=== PATIENT | female | born 1970 | race American Indian/Alaskan Native ===

== ENCOUNTER 2017-07-11 07:44 | Emergency (ER) | payer SELFPAY ==
[2017-07-11] MEDS ORDERED: BENADRYL IV ONE (10:51)
[2017-07-11] MEDS ORDERED: DILAUDID IV ONE ×2 (10:51→13:42)
[2017-07-11] MEDS ORDERED: ZOFRAN IV ONE (10:51)
[2017-07-11] MEDS ORDERED: NORMODYNE IV ONE (10:52)
[2017-07-11 11:16] LABS: Basophils % (Auto) 0.6 % (0.0-1.8); Eosinophils % (Auto) 0.1 % (0.0-4.3); Hematocrit 37.3 % (30.3-42.9); Hemoglobin 12.3 gm/dl (10.1-14.3); Lymphocytes # (Auto) 1.6 K/mm3 (1.2-5.4); Lymphocytes % (Auto) 21.7 % (13.4-35.0); Mean Corpuscular HGB Conc 33 % (30-34); Mean Corpuscular Hemoglobin 27 pg (28-32); Mean Corpuscular Volume 83 fl (79-97); Monocytes # (Auto) 0.5 K/mm3 (0.0-0.8); Monocytes % (Auto) 6.3 % (0.0-7.3); Platelet Count 208 K/mm3 (140-440); Red Blood Count 4.52 M/mm3 (3.65-5.03); Red Cell Distribution Width 14.8 % (13.2-15.2)
[2017-07-11 11:27] LABS: INR 0.9 (0.87-1.13)
[2017-07-11 11:28] LABS: Partial Thromboplastin Time 30.8 Sec. (24.2-36.6)
[2017-07-11 11:34] LABS: Alanine Aminotransferase 17 units/L (7-56); BUN/Creatinine Ratio 18; Blood Urea Nitrogen 9 mg/dL (7-17); Calcium 8.7 mg/dL (8.4-10.2); Hemolysis Index 3
[2017-07-11 11:36] LABS: Bilirubin,Direct < 0.2 mg/dL (0-0.2)
--- NOTE | 2017-07-11 12:01 | XRay Report ---
Single view chest: History: Hypertension. Findings: Cardiomegaly. Trachea is midline. No consolidation, pneumothorax or pleural effusion. Impression: Cardiomegaly. No acute lung changes.
--- NOTE | 2017-07-11 12:06 | Emergency Department Report ---
ED General Adult HPI - General Chief complaint: Back Pain/Injury Stated complaint: BACK PAIN Time Seen by Provider: 07/11/17 10:31 Source: patient Mode of arrival: Ambulatory Limitations: No Limitations - History of Present Illness Initial comments: Patient states she has had a severe headache for the past 2 days. It was of gradual onset but is persistent. She has not been vomiting. She does not complain of nausea. Apparently she does have chronic lower back pain and was scheduled for a spinal stimulator. She states her back is hurting too. She is recently moved to this area and doesn't have a physician. She presented to the emergency department blood pressure 188/121. She claims that her blood pressure always goes up when she has pain. I believe that she has been to the emergency department several times for chronic pain. However, she denies any prior emergency department visit for headaches. She is not taking chronic medications for her blood pressure. She denies fever or chills. She denies any focal neurological change. She states to the nurse that she's had some chronic weakness of her lower extremities and difficulty in walking secondary to her lower back pain. She does not report any increased weakness. Patient states "I feel like I'm going into renal failure again". Apparently she had reversible renal injury at one time. -: Gradual, days(s) Location: head, back Radiation: non-radiation Quality: aching Consistency: constant Improves with: none Worsens with: none Associated Symptoms: denies other symptoms - Related Data Allergies Allergy/AdvReac Type Severity Reaction Status Date / Time acetaminophen [From Tylenol] Allergy Vomiting Verified 07/11/17 07:50 codeine Allergy Vomiting Verified 07/11/17 07:50 iodine Allergy Vomiting Verified 07/11/17 07:50 shellfish derived Allergy Vomiting Verified 07/11/17 07:50 NSAIDS (Non-Steroidal AdvReac Unknown Verified 07/11/17 07:50 Anti-Inflamma muscle relaxers AdvReac Unknown Uncoded 07/11/17 07:50 ED Review of Systems ROS: Stated complaint: BACK PAIN Other details as noted in HPI Constitutional: denies: chills, fever Eyes: denies: eye pain, eye discharge, vision change ENT: denies: ear pain, throat pain Respiratory: denies: cough, shortness of breath, wheezing Cardiovascular: denies: chest pain, palpitations Endocrine: no symptoms reported Gastrointestinal: denies: abdominal pain, nausea, diarrhea Genitourinary: denies: urgency, dysuria, discharge Musculoskeletal: as per HPI, back pain. denies: joint swelling, arthralgia Skin: denies: rash, lesions Neurological: as per HPI, headache. denies: weakness, paresthesias Psychiatric: denies: anxiety, depression Hematological/Lymphatic: denies: easy bleeding, easy bruising ED Past Medical Hx - Past Medical History Hx Hypertension: Yes (only with pain) Hx Liver Disease: Yes Hx Renal Disease: Yes (no dialysis) Additional medical history: degenerative bone disorder, RA, sciatica, "I may have stomach cancer", - Surgical History Hx Cholecystectomy: Yes Additional Surgical History: hysterectomy, gastric bypass, C/S - Social History Smoking Status: Current Some Day Smoker Substance Use Type: Alcohol ED Physical Exam - General Limitations: No Limitations General appearance: in distress (appears to have some photosensitivity) - Head Head exam: Present: atraumatic, normocephalic - Eye Eye exam: Present: normal appearance, PERRL, EOMI - ENT ENT exam: Present: normal orophraynx, mucous membranes moist - Neck Neck exam: Present: normal inspection. Absent: tenderness, meningismus - Respiratory Respiratory exam: Present: normal lung sounds bilaterally. Absent: respiratory distress - Cardiovascular Cardiovascular Exam: Present: regular rate, normal rhythm. Absent: systolic murmur, diastolic murmur, rubs, gallop - GI/Abdominal GI/Abdominal exam: Present: soft, normal bowel sounds. Absent: distended, tenderness, guarding, rebound - Extremities Exam Extremities exam: Present: normal inspection, full ROM. Absent: calf tenderness - Back Exam Back exam: Present: normal inspection. Absent: CVA tenderness (R), CVA tenderness (L) - Neurological Exam Neurological exam: Present: alert, oriented X3, CN II-XII intact. Absent: motor sensory deficit - Psychiatric Psychiatric exam: Present: normal affect, anxious - Skin Skin exam: Present: warm, dry, intact, normal color. Absent: rash ED Course Vital Signs 07/11/17 07/11/17 07:50 12:19 Temperature 99.6 F Pulse Rate 101 H 80 Respiratory 18 Rate Blood Pressure 188/121 199/126 O2 Sat by Pulse 100 Oximetry - Reevaluation(s) Reevaluation #1: Nurses were unable to obtain IV access in this patient. I placed a left external jugular line with a Y adapter. The patient was given analgesia and medicine for her hypertension. Her blood pressure did improve but at last check it was 170/105. I will leave further regulation of her blood pressure to Dr. Bustos. Her headache has improved somewhat but is still persistent but not severe. The circumstances I think the patient requires admission for accelerated hypertension associated with headache. Further workup per Dr. Bustos. The patient is in stable and improved condition. 07/11/17 13:37 07/11/17 13:38 - EJ/Peripheral Line Neck L Time Out Performed: No Indications: nurses unable to establis Skin Cleansed in Sterile Fashion: Yes Size: 20 Dressing Placed: Tegaderm, tape Patient Tolerated Procedure: well ED Medical Decision Making - Lab Data Result diagrams: 07/11/17 11:03 07/11/17 11:03 Laboratory Results - last 24 hr 07/11/17 07/11/17 07/11/17 11:03 11:03 11:03 WBC 7.4 RBC 4.52 Hgb 12.3 Hct 37.3 MCV 83 MCH 27 L MCHC 33 RDW 14.8 Plt Count 208 Lymph % (Auto) 21.7 Whiteside % (Auto) 6.3 Eos % (Auto) 0.1 Baso % (Auto) 0.6 Lymph # 1.6 Whiteside # 0.5 Eos # 0.0 Baso # 0.0 Seg Neutrophils % 71.3 H Seg Neutrophils # 5.3 PT 12.6 INR 0.90 APTT 30.8 Sodium 138 Potassium 4.4 Chloride 100.1 Carbon Dioxide 25 Anion Gap 17 BUN 9 Creatinine 0.5 L Estimated GFR > 60 BUN/Creatinine Ratio 18 Glucose 91 Lactic Acid Calcium 8.7 Magnesium 2.00 Total Bilirubin 0.30 Direct Bilirubin < 0.2 AST 24 ALT 17 Alkaline Phosphatase 109 Total Creatine Kinase 104 CK-MB (CK-2) 1.0 CK-MB (CK-2) Rel Index 0.9 Troponin T < 0.010 NT-Pro-B Natriuret Pep 219.1 Total Protein 7.4 Albumin 4.0 Albumin/Globulin Ratio 1.2 07/11/17 11:03 WBC RBC Hgb Hct MCV MCH MCHC RDW Plt Count Lymph % (Auto) Whiteside % (Auto) Eos % (Auto) Baso % (Auto) Lymph # Whiteside # Eos # Baso # Seg Neutrophils % Seg Neutrophils # PT INR APTT Sodium Potassium Chloride Carbon Dioxide Anion Gap BUN Creatinine Estimated GFR BUN/Creatinine Ratio Glucose Lactic Acid 1.30 Calcium Magnesium Total Bilirubin Direct Bilirubin AST ALT Alkaline Phosphatase Total Creatine Kinase CK-MB (CK-2) CK-MB (CK-2) Rel Index Troponin T NT-Pro-B Natriuret Pep Total Protein Albumin Albumin/Globulin Ratio - Radiology Data Radiology results: report reviewed (CT head showed no acute process chest x-ray showed perhaps mild cardiomegaly but no acute process) Critical care attestation.: If time is entered above; I have spent that time in minutes in the direct care of this critically ill patient, excluding procedure time. ED Disposition Clinical Impression: Accelerated hypertension Cephalalgia Qualifiers: Headache type: unspecified Headache chronicity pattern: acute headache Intractability: not intractable Qualified Code(s): R51 - Headache Disposition: -09 OP ADMIT IP TO THIS HOSP Is pt being admited?: Yes Does the pt Need Aspirin: Yes Condition: Stable Instructions: Hypertension (ED) Referrals: PRIMARY CAREMD [Primary Care Provider] - 3-5 Days Time of Disposition: 13:40
--- NOTE | 2017-07-11 12:41 | Cat Scan Report ---
CT scan of head without IV contrast: History: Headache. Findings: Ventricles are normal in size and midline in location. No evidence of acute ischemic, hemorrhage or mass. Moderate volume loss. No extra-axial fluid collection. Normal brainstem and cerebellum. Marked mucosal thickening of right maxillary sinus. Normal mastoid air cells. Impression: No acute intracranial abnormality. Moderate volume loss. Unusual for patient's age. Sinus disease.
--- NOTE | 2017-07-11 13:31 | History and Physical Report ---
History of Present Illness Chief complaint: im hurting History of present illness: 46 YO Female with HTN, Obesity, Nicotine Dependence, Medication Noncompliance due to inability to afford medication, Chronic Pain, RA, DJD, Sciatica presents to ED for evaluation. PT found to have uncontrolled hypertension and complained of headache. Pt treated wtih CT head, and [facility] were unremarkable for acute disease. . Pt treated with antihypertensive therapy. Pt medically optimized and back to usual state of health. Pt discharged home and instructed to f/u pcp 5 days, as well as neurology within 5 days for further care. Pt counseled regarding medication noncompliance. Past History Past Medical History: arthritis, hypertension Past Surgical History: cholecystectomy, , Other (gastric bypass.) Social history: , lives with family, smoking. denies: alcohol abuse, prescription drug abuse, IV drug use Family history: hypertension Medications and Allergies Allergies Allergy/AdvReac Type Severity Reaction Status Date / Time acetaminophen [From Tylenol] Allergy Vomiting Verified 07/11/17 07:50 codeine Allergy Vomiting Verified 07/11/17 07:50 iodine Allergy Vomiting Verified 07/11/17 07:50 shellfish derived Allergy Vomiting Verified 07/11/17 07:50 NSAIDS (Non-Steroidal AdvReac Unknown Verified 07/11/17 07:50 Anti-Inflamma muscle relaxers AdvReac Unknown Uncoded 07/11/17 07:50 Home Medications Medication Instructions Recorded Confirmed Last Taken Type Hydrochlorothiazide [Hctz] 12.5 mg PO QDAY #30 capsule 07/11/17 Unknown Rx amLODIPine [Norvasc] 10 mg PO DAILY #30 tab 07/11/17 Unknown Rx Active Meds: Active Medications Hydralazine HCl (Apresoline) 20 mg IV ONCE ONE Stop: 07/11/17 13:30 Review of Systems Constitutional: no weight loss, no weight gain, no fever, no chills Ears, nose, mouth and throat: no ear pain, no ear discharge, no tinnitis, no decreased hearing, no nose pain, no nasal congestion Breasts: no change in shape, no swelling, no mass Cardiovascular: no chest pain, no orthopnea, no palpitations, no rapid/ irregular heart beat, no edema Respiratory: no cough, no cough with sputum, no excessive sputum, no hemoptysis Gastrointestinal: no abdominal pain, no nausea, no vomiting, no diarrhea Genitourinary Female: no pelvic pain, no flank pain, no menorrhagia, no dysuria , no urinary frequency, no urgency Rectal: no pain, no incontinence, no bleeding Musculoskeletal: no neck stiffness, no neck pain, no shooting arm pain, no arm numbness/tingling, no low back pain, no shooting leg pain, no leg numbness/ tingling Integumentary: no rash, no pruritis, no redness, no sores, no wounds, no jaundice Neurological: no transient paralysis, no paralysis, no weakness, no parathesias , no numbness, no tingling, no seizures Psychiatric: no anxiety, no memory loss, no change in sleep habits, no sleep disturbances, no insomnia, no hypersomnia, no change in appetite, no change in libido Endocrine: no cold intolerance, no heat intolerance, no polyphagia, no excessive thirst, no polydipsia, no polyuria, no nocturia, no excessive sweating Hematologic/Lymphatic: no easy bruising, no easy bleeding, no lymphadenopathy, no lymphedema Allergic/Immunologic: no urticaria, no allergic rhinitis, no wheezing, no persistent infections, no anaphylaxis Exam - Constitutional Vitals: Temp Pulse Resp BP Pulse Ox 99.6 F 80 18 199/126 100 07/11/17 07:50 07/11/17 12:19 07/11/17 07:50 07/11/17 12:19 07/11/17 07:50 General appearance: Present: no acute distress, well-nourished - EENT Eyes: Present: PERRL ENT: hearing intact, clear oral mucosa - Neck Neck: Present: supple, normal ROM - Respiratory Respiratory effort: normal Respiratory: bilateral: CTA - Cardiovascular Heart Sounds: Present: S1 & S2. Absent: rub, click - Extremities Extremities: pulses symmetrical, No edema Peripheral Pulses: within normal limits - Abdominal General gastrointestinal: Present: soft, non-tender, non-distended, normal bowel sounds Female genitourinary: Present: normal - Integumentary Integumentary: Present: clear, warm, dry - Musculoskeletal Musculoskeletal: gait normal, strength equal bilaterally - Psychiatric Psychiatric: appropriate mood/affect, intact judgment & insight - Neurologic Neurologic: CNII-XII intact, moves all extremities Results - Labs CBC & Chem 7: 07/11/17 11:03 07/11/17 11:03 Labs: Abnormal lab results 07/11/17 07/11/17 Range/Units 11:03 11:03 MCH 27 L (28-32) pg Seg Neutrophils % 71.3 H (40.0-70.0) % Creatinine 0.5 L (0.7-1.2) mg/dL Assessment and Plan - Patient Problems (1) Accelerated hypertension Current Visit: Yes Status: Acute Plan to address problem: antihypertensive therapy, discharge home, f/u pcp 5 days with blood pressure log taken 3 times daily. (2) Chronic pain Current Visit: Yes Status: Acute Plan to address problem: resume home medication, (3) Noncompliance Current Visit: Yes Status: Acute Plan to address problem: Pt counseled,
[2017-07-11 13:55] LABS: Bacteria,Urine 1+ /HPF (Negative); Bilirubin,Urine NEG (Negative); Blood,Urine NEG (Negative); Color,Urine Yellow (Yellow); Mucus,Urine FEW /HPF; Protein,Urine <15 mg/dL mg/dL (Negative); Urobilinogen,Urine < 2.0 mg/dL (<2.0)
[2017-07-11] MEDS ORDERED: APRESOLINE IV ONE (14:00)
[2017-07-11 14:29] LABS: Amphetamine Screen,Urine PRESUMPTIVE NEGATIVE; Benzodiazepines Screen,Urine PRESUMPTIVE NEGATIVE; Cannabinoid Screen,Urine PRESUMPTIVE NEGATIVE; Cocaine Screen,Urine PRESUMPTIVE NEGATIVE; Methadone Screen,Urine PRESUMPTIVE NEGATIVE; Opiate Screen,Urine PRESUMPTIVE NEGATIVE
--- NOTE | 2017-07-11 17:44 | Magnetic Resonance Report ---
FINAL REPORT EXAM: MR BRAIN WO/W CON HISTORY: headache COMPARISON: None available. TECHNIQUE: Several multiplanar pre and post contrast sequences were obtained. IV contrast administered per institution protocol. Images submitted for interpretation. FINDINGS: No restricted diffusion. No acute intracranial hemorrhage, midline shift or pathologic fluid collection. No gross intraparenchymal mass or mass effect. Craniocervical junction within normal limits. Mild bilateral proptosis. No intra-ocular or retrobulbar mass. Flow voids at the skull base are patent by spin echo criteria. Mild to moderate mucosal thickening of the paranasal sinuses most pronounced involving the right maxillary sinus. Mastoid air cells are clear. No pathologic enhancement of the brain parenchyma or leptomeninges. IMPRESSION: No acute intracranial abnormality or abnormal parenchymal enhancement.
[2017-07-11] MEDS ORDERED: NORVASC PO ONE (18:00)
[2017-07-11] MEDS ORDERED: HCTZ PO ONE (18:00)
[2017-07-11 18:14] VITALS: BP 154/94
== END 2017-07-11 20:16 | disposition admitted as inpatient to this hospital (09) ==
LOC: ED 07:44
DX: I10 Essential (primary) hypertension (principal); R51 Headache; K76.9 Liver disease, unspecified; F17.200 Nicotine dependence, unspecified, uncomplicated; Z90.49 Acquired absence of other specified parts of digestive tract; Z90.710 Acquired absence of both cervix and uterus; Z91.041 Radiographic dye allergy status; Z91.013 Allergy to seafood; Z88.6 Allergy status to analgesic agent
CPT/HCPCS: 36415; 36569; 70450; 70553; 71045; 80048; 80074; 80307; 81001; 82140; 82550; 82553; 83735; 83880; 84484; 85025; 85379; 85610; 85652; 85730; 96374; 96375; 96376; 99284; A9577; J0360; J1170; J1200; J2405

== ENCOUNTER 2017-08-16 16:53 | Inpatient (IN) | payer OTHER ==
--- NOTE | 2017-08-16 18:57 | Emergency Department Report ---
ED Back Pain/Injury HPI - General Chief Complaint: Back Pain/Injury Stated Complaint: RT LEG PAIN Time Seen by Provider: 08/16/17 18:52 Source: patient, EMS Limitations: No Limitations - History of Present Illness Initial Comments: Patient is a 46-year-old female that presents to emergency room with complaints of rt sided back pain that radiates down her right leg. Patient is brought by EMS to the patient on being unable to bear weight or move her right leg due to weakness and pain. Patient states that she has chronic back pain and is currently being seen by a orthopedist at [facility]. Patient states that her pain medications are not working and the pain is worsening. Patient denies fever and chills. Patient denies saddle numbness. Patient denies loss of bladder control or bowel control. Patient denies fever and chills. Patient denies chest pain or shortness of breath. Patient denies abdominal pain. Patient states the pain is 10 out of 10. Patient states the pain is worse with movement and palpation. Patient states that the pain is better with rest and lying still on her left side. MD Complaint: back pain -: Gradual Similar Symptoms Previously: Yes Place: other Radiation: buttocks, right leg Severity: severe Severity scale (0 -10): 10 Quality: sharp, stabbing Consistency: constant Improves With: immobilization, medication Worsens With: movement, sitting upright, walking Associated Symptoms: denies other symptoms, weakness, numbness, difficulty walking. denies: confusion, chest pain, cough, difficulty urinating, diaphoresis, incontinence, fever/chills, constipation, headaches, abdominal pain , loss of appetite, malaise, nausea/vomiting, rash, seizure, shortness of breath , syncope - Related Data Previous Rx's Medication Instructions Recorded Last Taken Type Hydrochlorothiazide [Hctz] 12.5 mg PO QDAY #30 capsule 07/11/17 Unknown Rx amLODIPine [Norvasc] 10 mg PO DAILY #30 tab 07/11/17 Unknown Rx Allergies Allergy/AdvReac Type Severity Reaction Status Date / Time acetaminophen [From Tylenol] Allergy Vomiting Verified 07/11/17 07:50 codeine Allergy Vomiting Verified 07/11/17 07:50 iodine Allergy Vomiting Verified 07/11/17 07:50 shellfish derived Allergy Vomiting Verified 07/11/17 07:50 NSAIDS (Non-Steroidal AdvReac Unknown Verified 07/11/17 07:50 Anti-Inflamma muscle relaxers AdvReac Unknown Uncoded 07/11/17 07:50 ED Review of Systems ROS: Stated complaint: RT LEG PAIN Other details as noted in HPI Comment: All other systems reviewed and negative Constitutional: denies: chills, fever Eyes: denies: eye pain, eye discharge, vision change ENT: denies: ear pain, throat pain Respiratory: denies: cough, shortness of breath, wheezing Cardiovascular: denies: chest pain, palpitations Endocrine: no symptoms reported Gastrointestinal: denies: abdominal pain, nausea, diarrhea Genitourinary: denies: urgency, dysuria, frequency, hematuria, discharge, abnormal menses, dyspareunia Musculoskeletal: as per HPI, back pain. denies: joint swelling, arthralgia Skin: denies: rash, lesions, change in color, change in hair/nails, pruritus Neurological: as per HPI. denies: headache, paresthesias Psychiatric: denies: anxiety, depression Hematological/Lymphatic: denies: easy bleeding, easy bruising ED Past Medical Hx - Past Medical History Previous Medical History?: Yes Hx Hypertension: Yes (only with pain) Hx Liver Disease: Yes Hx Renal Disease: Yes (no dialysis) Additional medical history: degenerative bone disorder, RA, sciatica, "I may have stomach cancer", - Surgical History Past Surgical History?: Yes Hx Cholecystectomy: Yes Additional Surgical History: hysterectomy, gastric bypass, C/S - Family History Family history: hypertension - Social History Smoking Status: Former Smoker Substance Use Type: None - Medications Home Medications: Home Medications Medication Instructions Recorded Confirmed Last Taken Type Hydrochlorothiazide [Hctz] 12.5 mg PO QDAY #30 capsule 07/11/17 Unknown Rx amLODIPine [Norvasc] 10 mg PO DAILY #30 tab 07/11/17 Unknown Rx ED Physical Exam - General Limitations: No Limitations General appearance: alert, in no apparent distress - Head Head exam: Present: atraumatic, normocephalic - Eye Eye exam: Present: normal appearance - ENT ENT exam: Present: mucous membranes moist - Neck Neck exam: Present: normal inspection - Respiratory Respiratory exam: Present: normal lung sounds bilaterally. Absent: respiratory distress - Cardiovascular Cardiovascular Exam: Present: regular rate, normal rhythm. Absent: systolic murmur, diastolic murmur, rubs, gallop - GI/Abdominal GI/Abdominal exam: Present: soft, normal bowel sounds - Extremities Exam Extremities exam: Present: normal inspection - Back Exam Back exam: Present: normal inspection, tenderness, CVA tenderness (R), paraspinal tenderness, vertebral tenderness (lumbar spine ttp. ) - Neurological Exam Neurological exam: Present: alert, oriented X3 - Psychiatric Psychiatric exam: Present: normal affect, normal mood - Skin Skin exam: Present: warm, dry, intact, normal color. Absent: rash ED Course Vital Signs 08/16/17 08/16/17 08/16/17 16:58 18:50 19:31 Temperature 99.1 F 98.8 F Pulse Rate 103 H 88 Respiratory 18 20 20 Rate Blood Pressure 168/138 Blood Pressure 141/96 [Left] O2 Sat by Pulse 99 97 Oximetry - Reevaluation(s) Reevaluation #1: All results were discussed with patient. Patient states she cannot walk or be discharged home. Patient states she is unable to get out of the bed. Will admit patient for intractable pain. Hospitalist consulted for admission. 08/16/17 20:52 ED Medical Decision Making - Radiology Data Radiology results: report reviewed No acute findings. No fractures. Chronic degenerative disks and L-spine and stenosis noted on CT scan - Medical Decision Making Is a 46-year-old female with severe chronic back pain. She states she is unable to walk or ambulate or get out of the bed. So we will admit patient for further evaluation and treatment - Differential Diagnosis chronic back pain. Severe pain. Critical care attestation.: If time is entered above; I have spent that time in minutes in the direct care of this critically ill patient, excluding procedure time. ED Disposition Clinical Impression: Chronic pain, Back pain, Lumbar radiculopathy, chronic, Intractable pain Disposition: OP ADMIT IP TO THIS HOSP Is pt being admited?: Yes Does the pt Need Aspirin: No Condition: Stable Time of Disposition: 20:51
[2017-08-16] MEDS ORDERED: DILAUDID IM ONE (18:58)
--- NOTE | 2017-08-16 20:26 | Cat Scan Report ---
FINAL REPORT EXAM: CT LUMBAR SPINE WO CON HISTORY: pain in the low back TECHNIQUE: Spiral high-resolution unenhanced 2.5 millimeter axial images were obtained through the lumbar spine. Sagittal and coronal plane are reconstructions were performed. PRIORS: None. FINDINGS: Counting reference: Lumbosacral junction. For the purposes of this report, L4-L5 is considered the level of the iliac crest. Bone marrow/ Fracture: No evidence for acute or chronic fracture is seen. No evidence of a lytic or blastic process in the visualized spine. Significant facet joint degenerative changes are noted to the right at L5-S1. Alignment: Alignment is anatomic. T12-L1: Canal and foramina are patent. L1-L2: Canal and foramina are patent. L2-L3: Canal and foramina are patent. L3-L4: Canal and foramina are patent. L4-L5: Canal and foramina are patent. L5-S1: There is a large disc bulge to the right causing severe neural foraminal narrowing on the right. Paraspinal soft tissues: The paraspinal soft tissues show no evidence for paravertebral hematoma or soft tissue mass. Sacrum and iliac wings: Visualized portions of the sacrum and iliac wings appear intact without fracture. The presacral soft tissues are normal in appearance. Incidental findings: Evidence for gastric bypass surgery is noted. IMPRESSION: 1. No evidence of acute fracture. 2. Large disc bulge to the right at L5-S1 causing severe neural foraminal narrowing 3. Significant facet joint degenerative changes at L5-S1 to the right.
[2017-08-16] MEDS ORDERED: ZOFRAN IV PRN (22:37)
--- NOTE | 2017-08-16 22:40 | History and Physical Report ---
History of Present Illness Date of examination: 08/16/17 History of present illness: 46-year-old woman with a history of hypertension, chronic back pain comes emergency room stating that her back pain has worsened over the last 1 week. She describes it as a stabbing pain in the lower back, constant, intensity 9/10 , radiating down to the right knee not relieved with pain medications at home. She states she has difficulty walking, cannot sit up, no bowel or bladder incontinence Review of systems Constitutional: no weight loss, chills Ears, eyes, nose, mouth and throat: no nasal congestion, no nasal discharge, no sinus pressure, no vision change, no red eye. Neck: No neck pain or rigidity. Cardiovascular: no chest pain, palpitations Respiratory: No cough, shortness of breath Gastrointestinal: no abdominal pain, hematochezia Genitourinary : no dysuria, frequency , no hematuria Musculoskeletal: no joint swelling or muscle ache Integumentary: no rash, no pruritis Neurological: no parathesias, no numbness, no focal weakness Endocrine: no cold or heat intolerance, no polyuria or polydipsia Hematologic/Lymphatic: no easy bruising, no easy bleeding, no gland swelling Allergic/Immunologic: no urticaria, no angioedema. PAST MEDICAL HISTORY:hypertension, chronic back pain PAST SURGICAL HISTORY: Hysterectomy, gastric bypass, , cholecystectomy SOCIAL HISTORY: Smokes cigars, alcohol use, drug FAMILY HISTORY: Hypertension Medications and Allergies Allergies Allergy/AdvReac Type Severity Reaction Status Date / Time acetaminophen [From Tylenol] Allergy Vomiting Verified 07/11/17 07:50 codeine Allergy Vomiting Verified 07/11/17 07:50 iodine Allergy Vomiting Verified 07/11/17 07:50 shellfish derived Allergy Vomiting Verified 07/11/17 07:50 NSAIDS (Non-Steroidal AdvReac Unknown Verified 07/11/17 07:50 Anti-Inflamma muscle relaxers AdvReac Unknown Uncoded 07/11/17 07:50 Home Medications Medication Instructions Recorded Confirmed Last Taken Type Hydrochlorothiazide [Hctz] 12.5 mg PO QDAY #30 capsule 07/11/17 Unknown Rx amLODIPine [Norvasc] 10 mg PO DAILY #30 tab 07/11/17 Unknown Rx Exam - Physical Exam Narrative exam: Gen. appearance: Patient lying in bed, no apparent distress HEENT: Normocephalic, atraumatic, pupils equally round and reactive to light, extraocular movement intact, and no sclericterus,. No JVD or thyromegaly or nodule,neck supple, no carotid bruit ,mucous membranes moist, no exudate or erythema Heart: S1, S2, regular rate and rhythm Lungs: Clear to auscultation bilaterally, breathing comfortable Abdomen: Positive bowel sounds, nontender, nondistended, no organomegaly Extremity: No edema, cyanosis, clubbing Skin: No rash, nodules, warm, dry Neuro: Oriented 3, cranial nerves II-12 intact, speech is fluent, motor and sensory intact - Constitutional Vitals: Temp Pulse Resp BP Pulse Ox 99.1 F 88 16 137/75 97 08/16/17 21:32 08/16/17 18:50 08/16/17 21:32 08/16/17 21:20 08/16/17 18:[address] LS spine reviewed Assessment Acute on chronic back pain, intractable Hypertension Plan Admit to medicine Start IV dilaudid, consult interventional radiology DVT prophylaxis
[2017-08-17] MEDS: DILAUDID IV PRN ×4 (02:52→20:56)
[2017-08-17 07:19] LABS: Basophils % (Auto) 0.1 % (0.0-1.8); Hematocrit 40.1 % (30.3-42.9); Hemoglobin 12.9 gm/dl (10.1-14.3); Lymphocytes # (Auto) 0.7 K/mm3 (1.2-5.4); Lymphocytes % (Auto) 14.8 % (13.4-35.0); Mean Corpuscular HGB Conc 32 % (30-34); Mean Corpuscular Hemoglobin 27 pg (28-32); Mean Corpuscular Volume 83 fl (79-97); Monocytes % (Auto) 0.9 % (0.0-7.3); Platelet Count 262 K/mm3 (140-440); Red Blood Count 4.84 M/mm3 (3.65-5.03)
[2017-08-17 07:30] LABS: BUN/Creatinine Ratio 20; Blood Urea Nitrogen 16 mg/dL (7-17); Calcium 9.2 mg/dL (8.4-10.2); Hemolysis Index 19
--- NOTE | 2017-08-17 08:43 | Event Note ---
Date: 08/17/17 Received consult for possible lumbar pain management. I spoke to the admitting physician and suggested a neurointerventionalist that can help with the patient' s care. Lumbar spine MRI also recommended.
--- NOTE | 2017-08-17 08:45 | Progress Note ---
<PARTH SCHNEIDER - Last Filed: 08/17/17 14:43> Assessment and Plan Assessment and plan: Patient is a 46 year old female who presented to ED for acute on chronic lower back pain. Patient states that she is unable to sit up and has difficulty walking at this time due to the pain. Acute on chronic back pain, intractable Continue IV dilaudid for pain management, consult placed to orthopedic and interventional radiology, Lumbar MRI ordered Patient reports ongoing back pain from bulging disc for which surgery was recommended, will obtain records from [facility] Hypertension Likely secondary to pain, will continue to monitor, hydralazine PRN Hyperglycemia Will check A1c DVT prophylaxis Lovenox History Interval history: Patient seen and examined. She continues to complain of back pain. No new complaints at this time. Labs and nursing notes reviewed. Hospitalist Physical - Constitutional Vitals: Temp Pulse Resp BP Pulse Ox 98.6 F 93 H 20 142/87 100 08/17/17 08:05 08/17/17 08:05 08/17/17 08:05 08/17/17 08:05 08/17/17 08:05 General appearance: Present: no acute distress, well-nourished, obese - EENT Eyes: Present: PERRL, EOM intact - Neck Neck: Present: supple, normal ROM - Respiratory Respiratory effort: normal Respiratory: bilateral: CTA - Cardiovascular Rhythm: regular Heart Sounds: Present: S1 & S2 - Extremities Extremities: no ischemia, pulses intact, No edema, normal color - Abdominal General gastrointestinal: soft, non-tender, non-distended - Integumentary Integumentary: Present: clear, warm, dry - Psychiatric Psychiatric: appropriate mood/affect, intact judgment & insight, cooperative - Neurologic Neurologic: CNII-XII intact, moves all extremities - Allied Health Allied health notes reviewed: nursing Results - Labs CBC & Chem 7: 08/17/17 06:42 08/17/17 06:42 Labs: Laboratory Last Values WBC 4.9 K/mm3 (4.5-11.0) 08/17/17 06:42 RBC 4.84 M/mm3 (3.65-5.03) 08/17/17 06:42 Hgb 12.9 gm/dl (10.1-14.3) 08/17/17 06:42 Hct 40.1 % (30.3-42.9) 08/17/17 06:42 MCV 83 fl (79-97) 08/17/17 06:42 MCH 27 pg (28-32) L 08/17/17 06:42 MCHC 32 % (30-34) 04 06:42 RDW 15.0 % (13.2-15.2) 04 06:42 Plt Count 262 K/mm3 (140-440) 08/17/17 06:42 Lymph % (Auto) 14.8 % (13.4-35.0) 08/17/17 06:42 [place] % (Auto) 0.9 % (0.0-7.3) 08/17/17 06:42 Eos % (Auto) 0.0 % (0.0-4.3) 08/17/17 06:42 Baso % (Auto) 0.1 % (0.0-1.8) 08/17/17 06:42 Lymph # 0.7 K/mm3 (1.2-5.4) L 08/17/17 06:42 [place] # 0.0 K/mm3 (0.0-0.8) 08/17/17 06:42 Eos # 0.0 K/mm3 (0.0-0.4) 08/17/17 06:42 Baso # 0.0 K/mm3 (0.0-0.1) 08/17/17 06:42 Seg Neutrophils % 84.2 % (40.0-70.0) H 08/17/17 06:42 Seg Neutrophils # 4.1 K/mm3 (1.8-7.7) 08/17/17 06:42 Sodium 141 mmol/L (137-145) 08/17/17 06:42 Potassium 4.8 mmol/L (3.6-5.0) 08/17/17 06:42 Chloride 102.5 mmol/L (98-107) 08/17/17 06:42 Carbon Dioxide 23 mmol/L (22-30) 08/17/17 06:42 Anion Gap 20 mmol/L 08/17/17 06:42 BUN 16 mg/dL (7-17) 08/17/17 06:42 Creatinine 0.8 mg/dL (0.7-1.2) 04 06:42 Estimated GFR > 60 ml/min 08/17/17 06:42 BUN/Creatinine Ratio 20 % 08/17/17 06:42 Glucose 156 mg/dL (65-100) H 08/17/17 06:42 Calcium 9.2 mg/dL (8.4-10.2) 08/17/17 06:42 <WILLIAM CLEVELAND - Last Filed: 08/17/17 17:40> History Interval history: I saw and evaluated the patient. I agree with the findings and the plan of care as documented in the Nurse Practitioner's~note, with the following corrections and additions. Patient has extensive workup in [facility] by neurosurgical team, and she reports that she is advised spine surgery And her physicians recommended weight reduction, patient does not remember the name of the physician, Requested medical records from [place], obtain MRI L-spine, manage with supportive care We will discuss with patient's neurosurgeon at [place] after MRI report and manage accordingly Plan of care discussed with the patient and family member at the bedside. No neurosurgical service is available in our hospital. Hospitalist Physical - Constitutional Vitals: Temp Pulse Resp BP Pulse Ox 98.4 F 71 20 150/94 96 08/17/17 15:52 08/17/17 15:52 08/17/17 15:52 08/17/17 15:52 08/17/17 15:52 Results - Labs CBC & Chem 7: 08/17/17 06:42 08/17/17 06:42 Labs: Laboratory Last Values WBC 4.9 K/mm3 (4.5-11.0) 08/17/17 06:42 RBC 4.84 M/mm3 (3.65-5.03) 08/17/17 06:42 Hgb 12.9 gm/dl (10.1-14.3) 08/17/17 06:42 Hct 40.1 % (30.3-42.9) 08/17/17 06:42 MCV 83 fl (79-97) 08/17/17 06:42 MCH 27 pg (28-32) L 08/17/17 06:42 MCHC 32 % (30-34) 08/17/17 06:42 RDW 15.0 % (13.2-15.2) 08/17/17 06:42 Plt Count 262 K/mm3 (140-440) 08/17/17 06:42 Lymph % (Auto) 14.8 % (13.4-35.0) 08/17/17 06:42 [place] % (Auto) 0.9 % (0.0-7.3) 08/17/17 06:42 Eos % (Auto) 0.0 % (0.0-4.3) 08/17/17 06:42 Baso % (Auto) 0.1 % (0.0-1.8) 08/17/17 06:42 Lymph # 0.7 K/mm3 (1.2-5.4) L 08/17/17 06:42 [place] # 0.0 K/mm3 (0.0-0.8) 08/17/17 06:42 Eos # 0.0 K/mm3 (0.0-0.4) 08/17/17 06:42 Baso # 0.0 K/mm3 (0.0-0.1) 08/17/17 06:42 Seg Neutrophils % 84.2 % (40.0-70.0) H 08/17/17 06:42 Seg Neutrophils # 4.1 K/mm3 (1.8-7.7) 08/17/17 06:42 Sodium 141 mmol/L (137-145) 08/17/17 06:42 Potassium 4.8 mmol/L (3.6-5.0) 08/17/17 06:42 Chloride 102.5 mmol/L (98-107) 08/17/17 06:42 Carbon Dioxide 23 mmol/L (22-30) 08/17/17 06:42 Anion Gap 20 mmol/L 08/17/17 06:42 BUN 16 mg/dL (7-17) 08/17/17 06:42 Creatinine 0.8 mg/dL (0.7-1.2) 08/17/17 06:42 Estimated GFR > 60 ml/min 08/17/17 06:42 BUN/Creatinine Ratio 20 % 08/17/17 06:42 Glucose 156 mg/dL (65-100) H 08/17/17 06:42 Calcium 9.2 mg/dL (8.4-10.2) 08/17/17 06:42
[2017-08-17] MEDS ORDERED: LOVENOX SUB-Q SCH (10:00)
[2017-08-17] MEDS: LOVENOX SUB-Q SCH (10:01)
[2017-08-17] MEDS: SODIUM CHLORIDE FLUSH SYRINGE 10 ML IV SCH ×2 (10:01→21:03)
--- NOTE | 2017-08-17 19:00 | Magnetic Resonance Report ---
FINAL REPORT PROCEDURE: MR LUMBAR SPINE WO CON TECHNIQUE: Magnetic resonance imaging of the lumbar spine was performed using standard pulse sequences without contrast material. CPT 13083 HISTORY: Low back pain disc bulge L5-S1 on CT COMPARISON: CT lumbar spine 08/16/2017 FINDINGS: The vertebral body heights and alignment are maintained. Conus terminates at the level of L1-2 and is unremarkable in appearance. Axial images are limited due to motion artifact. The descending nerve roots are adherent to the dura posteriorly/peripherally, which can be seen with arachnoiditis L1-2: No significant abnormality . L2-3: No significant abnormality . L3-4: No significant abnormality . L4-5: Disc desiccation. No disc herniation, spinal stenosis, or neural foraminal narrowing. L5-S1: There is minimal broad-based posterior disc bulge. There are bilateral facet arthritic changes. No spinal stenosis. There is resultant mild to moderate bilateral neural foraminal narrowing. Other: None . IMPRESSION: Minimal broad-based posterior disc bulge and bilateral facet arthritic changes at L5-S1, with mild to moderate bilateral neural foraminal narrowing. Descending nerve roots are peripherally adherent to the dura, which can be seen with arachnoiditis.
[2017-08-17] MEDS ORDERED: BENADRYL IV ONE (22:36)
--- NOTE | 2017-08-17 23:30 | Consultation ---
History of Present Illness - [facility] Consult date: 08/17/17 Consult reason: low back pain History of present illness: 46-year-old woman with a history of hypertension, chronic back pain comes emergency room stating that her back pain has worsened over the last 1 week. She describes it as a stabbing pain in the lower back, constant, intensity 9/10 , radiating down to the right knee not relieved with pain medications at home. She states she has difficulty walking, cannot sit up, no bowel or bladder incontinence... States she tried epidural nerve blocks along with nerve stimulation in past with minimal relief Medications and Allergies Allergies Allergy/AdvReac Type Severity Reaction Status Date / Time acetaminophen [From Tylenol] Allergy Vomiting Verified 07/11/17 07:50 codeine Allergy Vomiting Verified 07/11/17 07:50 iodine Allergy Vomiting Verified 07/11/17 07:50 shellfish derived Allergy Vomiting Verified 07/11/17 07:50 NSAIDS (Non-Steroidal AdvReac Unknown Verified 07/11/17 07:50 Anti-Inflamma muscle relaxers AdvReac Unknown Uncoded 07/11/17 07:50 Home Medications Medication Instructions Recorded Confirmed Last Taken Type Hydrochlorothiazide [Hctz] 12.5 mg PO QDAY #30 capsule 07/11/17 Unknown Rx amLODIPine [Norvasc] 10 mg PO DAILY #30 tab 07/11/17 Unknown Rx Active Meds: Active Medications Enoxaparin Sodium (Lovenox) 40 mg SUB-Q QDAY@1000 [facility] Last Admin: 08/17/17 10:01 Dose: 40 mg Hydromorphone HCl (Dilaudid) 2 mg IV Q4H PRN PRN Reason: Pain, Moderate (4-6) Last Admin: 08/17/17 20:56 Dose: 2 mg Ondansetron HCl (Zofran) 4 mg IV Q4H PRN PRN Reason: Nausea And Vomiting Sodium Chloride (Sodium Chloride Flush Syringe 10 Ml) 10 ml IV BID [facility] Last Admin: 08/17/17 21:03 Dose: 10 ml Sodium Chloride (Sodium Chloride Flush Syringe 10 Ml) 10 ml IV PRN PRN PRN Reason: LINE FLUSH
[2017-08-18] MEDS: DILAUDID IV PRN ×3 (09:02→22:04)
--- NOTE | 2017-08-18 09:08 | Progress Note ---
<PARTH SCHNEIDER - Last Filed: 08/18/17 16:15> Assessment and Plan Assessment and plan: Patient is a 46 year old female who presented to ED for acute on chronic lower back pain. Patient states that she is unable to sit up and has difficulty walking at this time due to the pain. Acute on chronic back pain, intractable Continue IV dilaudid for pain management, consult placed to orthopedic and neurology, MRI LS spine shows DJD kedar degen changes in the L5-S1 facet joints No acute changes, awaiting records from [facility], Pt will f/u with Dr Currie for her surgery Neurology rec's steroid taper which patient has been initiated on, will follow up with PT when pain has improved Hypertension Likely secondary to pain, will continue to monitor, hydralazine PRN Hyperglycemia A1c 5.4 DVT prophylaxis Lovenox History Interval history: Patient seen and examined. No new complaints at this time. Labs and nursing notes reviewed. Hospitalist Physical - Constitutional Vitals: Temp Pulse Resp BP Pulse Ox 97.4 F L 74 18 128/79 99 08/17/17 22:56 08/17/17 22:56 08/17/17 22:56 08/17/17 22:56 08/18/17 08:42 General appearance: Present: no acute distress, well-nourished, obese - EENT Eyes: Present: PERRL, EOM intact ENT: hearing intact, clear oral mucosa - Neck Neck: Present: supple, normal ROM - Respiratory Respiratory effort: normal Respiratory: bilateral: CTA - Cardiovascular Rhythm: regular Heart Sounds: Present: S1 & S2. Absent: rub, click - Extremities Extremities: no ischemia, No edema, normal temperature, normal color - Abdominal General gastrointestinal: soft, non-tender, non-distended - Integumentary Integumentary: Present: clear, warm, dry - Psychiatric Psychiatric: appropriate mood/affect, intact judgment & insight, cooperative - Neurologic Neurologic: CNII-XII intact, moves all extremities Results - Labs CBC & Chem 7: 08/17/17 06:42 08/17/17 06:42 Labs: Laboratory Last Values WBC 4.9 K/mm3 (4.5-11.0) 08/17/17 06:42 RBC 4.84 M/mm3 (3.65-5.03) 08/17/17 06:42 Hgb 12.9 gm/dl (10.1-14.3) 08/17/17 06:42 Hct 40.1 % (30.3-42.9) 08/17/17 06:42 MCV 83 fl (79-97) 08/17/17 06:42 MCH 27 pg (28-32) L 04 06:42 MCHC 32 % (30-34) 08/17/17 06:42 RDW 15.0 % (13.2-15.2) 08/17/17 06:42 Plt Count 262 K/mm3 (140-440) 08/17/17 06:42 Lymph % (Auto) 14.8 % (13.4-35.0) 08/17/17 06:42 [place] % (Auto) 0.9 % (0.0-7.3) 08/17/17 06:42 Eos % (Auto) 0.0 % (0.0-4.3) 08/17/17 06:42 Baso % (Auto) 0.1 % (0.0-1.8) 08/17/17 06:42 Lymph # 0.7 K/mm3 (1.2-5.4) L 08/17/17 06:42 [place] # 0.0 K/mm3 (0.0-0.8) 08/17/17 06:42 Eos # 0.0 K/mm3 (0.0-0.4) 08/17/17 06:42 Baso # 0.0 K/mm3 (0.0-0.1) 08/17/17 06:42 Seg Neutrophils % 84.2 % (40.0-70.0) H 08/17/17 06:42 Seg Neutrophils # 4.1 K/mm3 (1.8-7.7) 08/17/17 06:42 Sodium 141 mmol/L (137-145) 08/17/17 06:42 Potassium 4.8 mmol/L (3.6-5.0) 08/17/17 06:42 Chloride 102.5 mmol/L (98-107) 08/17/17 06:42 Carbon Dioxide 23 mmol/L (22-30) 08/17/17 06:42 Anion Gap 20 mmol/L 08/17/17 06:42 BUN 16 mg/dL (7-17) 08/17/17 06:42 Creatinine 0.8 mg/dL (0.7-1.2) 08/17/17 06:42 Estimated GFR > 60 ml/min 08/17/17 06:42 BUN/Creatinine Ratio 20 % 08/17/17 06:42 Glucose 156 mg/dL (65-100) H 08/17/17 06:42 Hemoglobin A1c 5.4 % (4-6) 08/18/17 06:27 Calcium 9.2 mg/dL (8.4-10.2) 08/17/17 06:42 <WILLIAM CLEVELAND - Last Filed: 08/18/17 18:08> History Interval history: I saw and evaluated the patient. I agree with the findings and the plan of care as documented in the Nurse Practitioner's~note, with the following corrections and additions. I seen and examined the patient, Medical records reviewed Discussed extensively with the radiologist, consult and recommendations noted Requested physical therapy as tolerated MRI findings reviewed, Awaiting records from [facility] recommended tapering dose of steroids No supports and patient had a fall and she got up on the bed No complaints of some knee pain, check x-ray knee Place the patient on fall precautions Plan of care reviewed with COAT CHECKER, the patient and her nurse Hospitalist Physical - Constitutional Vitals: Temp Pulse Resp BP Pulse Ox 97.7 F 85 20 144/89 91 08/18/17 16:10 08/18/17 16:10 08/18/17 16:10 08/18/17 16:10 08/18/17 16:10 Results - Labs CBC & Chem 7: 08/17/17 06:42 08/17/17 06:42 Labs: Laboratory Last Values WBC 4.9 K/mm3 (4.5-11.0) 08/17/17 06:42 RBC 4.84 M/mm3 (3.65-5.03) 08/17/17 06:42 Hgb 12.9 gm/dl (10.1-14.3) 08/17/17 06:42 Hct 40.1 % (30.3-42.9) 08/17/17 06:42 MCV 83 fl (79-97) 08/17/17 06:42 MCH 27 pg (28-32) L 08/17/17 06:42 MCHC 32 % (30-34) 08/17/17 06:42 RDW 15.0 % (13.2-15.2) 08/17/17 06:42 Plt Count 262 K/mm3 (140-440) 08/17/17 06:42 Lymph % (Auto) 14.8 % (13.4-35.0) 08/17/17 06:42 [place] % (Auto) 0.9 % (0.0-7.3) 08/17/17 06:42 Eos % (Auto) 0.0 % (0.0-4.3) 08/17/17 06:42 Baso % (Auto) 0.1 % (0.0-1.8) 08/17/17 06:42 Lymph # 0.7 K/mm3 (1.2-5.4) L 08/17/17 06:42 [place] # 0.0 K/mm3 (0.0-0.8) 08/17/17 06:42 Eos # 0.0 K/mm3 (0.0-0.4) 08/17/17 06:42 Baso # 0.0 K/mm3 (0.0-0.1) 08/17/17 06:42 Seg Neutrophils % 84.2 % (40.0-70.0) H 08/17/17 06:42 Seg Neutrophils # 4.1 K/mm3 (1.8-7.7) 08/17/17 06:42 Sodium 141 mmol/L (137-145) 08/17/17 06:42 Potassium 4.8 mmol/L (3.6-5.0) 08/17/17 06:42 Chloride 102.5 mmol/L (98-107) 08/17/17 06:42 Carbon Dioxide 23 mmol/L (22-30) 08/17/17 06:42 Anion Gap 20 mmol/L 08/17/17 06:42 BUN 16 mg/dL (7-17) 08/17/17 06:42 Creatinine 0.8 mg/dL (0.7-1.2) 08/17/17 06:42 Estimated GFR > 60 ml/min 08/17/17 06:42 BUN/Creatinine Ratio 20 % 08/17/17 06:42 Glucose 156 mg/dL (65-100) H 08/17/17 06:42 POC Glucose 77 (70-105) 08/18/17 16:20 Hemoglobin A1c 5.4 % (4-6) 08/18/17 06:27 Calcium 9.2 mg/dL (8.4-10.2) 08/17/17 06:42
--- NOTE | 2017-08-18 09:34 | History and Physical Report ---
History of Present Illness Date of examination: 08/18/17 Date of admission: 08/16/17 22:37 Chief complaint: FOCUSED NEUROLOGY CONSULT NOTE: CC: I am asked to see this 46 AA F for low back and right leg pain, worse x one week HPI: Hx reivewed in chart and with patient. CT LS Spine images and MRI LS Spine images reviewed. The patient had gastric bypass surgery in 2006, and over the last 1 j- 2 years has had chronic low back pain. Over the last year she has been followed by a Dr Currie, Neurosurgeon, and a Dr Talbot, chronic landscape painter, both at [facility]. She say both in March 2017, and saw only Dr Talbot three weeks ago. He prescribed hydocodone , but patient found this not to be helpful re her pain which has ramped up over the past three weeks. She takes eight Bendryl 25mg BID for her pain as this makes her sleepy. She sleeps much of her days, watching TV intermittenly. Her does the meal preparation and works at night. Apparently, on March 27,she lost her [employer] coverage because one person, the "line server" in Dr Betancur office, sent a note to the insurance company that her issue was resolved and she could return to work. Such was not the case, however. Dr Currie, her neurosurgeion was and is willing to do surgery on her LS spine as a [place] Case, provided the patient lost weight (which she did over the past 10 months from 239 to 172 lbs which she weighs at present). Her sx at present are severe pain below her right knee in a posterolateral distribution. She denies pain in the knee itself, and generally does not experience low back pain, but does so on occasion. She came into our ED here yesterday not being able to tolerate this pain, not being able to bear weight o the right leg because of pain, and not being able to sit up properly because of pain. She experiences the most pain relief lying partly on her left side with her right thigh and knee partially flexed. She denies recent falls, numbness and tingling anywhere. The spine CT shows DJD and mild to mod stenosis of the right L5 - S1 intervertebral foramen, and the MRI LS spine shows DJD kedar degen changes in the L5-S1 facet joints. This examiner cannot make out nerve root impingement on the axial cuts which are degraded by motion artifact. The patient is waiting to hear when her surgery will be scheduled by Dr Currie. ROS: An 11 point ROS is negative. There is no GI or symptomatology. NEURO EXAM: MS: alert, oriented x 3, with clear and fluent speech without errors. Follows commands well, but is reluctant to move her legs becasue this triggers pain in her low back and right posterolateral calf. 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 Hip flexors are 5/5, both knee flexors and extensors are 5/5, foot dorsiflexors are 5/5 on the left and 4/5 on the right. No atrophy or fasciculation. SENS: denies loss to touch over all extremities prox and distally CEREB: fnf nl bilat DTRs: 2+ and symm all four extrem prox and dist includeing AJs bilat, left great toe downgoing, and right equivocal in response to plantar stim. DX IMP: 1. Right mostly L5 radiculopathy by Hx with mod right foot dorsiflexor weakness and with imaging studies to match (see above), chronic with acute sx superimposed. 2. Other med dxs as above RECC: 1. Call office of Dr Currie, [facility], to learn when N[place] surgery is scheduled, and get advice from them re interim management 2. Go from there. Dr Currie holds the lee, knows her case. She has lost the required weight (67 lbs in 10 mos), pt is significantly debilitated by pain and cannot function this way. 3. Begin Prednisone 60 mg daily x 2 days, then 40 mg daily x 2 days, then 20 mg daily x 2 days, then off. (as an example of a reasonable steroid anti- swelling regimen). Then have PT see patient when pain is somewhat better, re weight bearing and gait. 4. Call as needed. Angelia Jessica MD Medications and Allergies Allergies Allergy/AdvReac Type Severity Reaction Status Date / Time acetaminophen [From Tylenol] Allergy Vomiting Verified 07/11/17 07:50 codeine Allergy Vomiting Verified 07/11/17 07:50 iodine Allergy Vomiting Verified 07/11/17 07:50 shellfish derived Allergy Vomiting Verified 07/11/17 07:50 NSAIDS (Non-Steroidal AdvReac Unknown Verified 07/11/17 07:50 Anti-Inflamma muscle relaxers AdvReac Unknown Uncoded 07/11/17 07:50 Home Medications Medication Instructions Recorded Confirmed Last Taken Type Hydrochlorothiazide [Hctz] 12.5 mg PO QDAY #30 capsule 07/11/17 Unknown Rx amLODIPine [Norvasc] 10 mg PO DAILY #30 tab 07/11/17 Unknown Rx Active Meds: Active Medications Enoxaparin Sodium (Lovenox) 40 mg SUB-Q QDAY@1000 [facility] Last Admin: 08/17/17 10:01 Dose: 40 mg Hydromorphone HCl (Dilaudid) 2 mg IV Q4H PRN PRN Reason: Pain, Moderate (4-6) Last Admin: 08/17/17 20:56 Dose: 2 mg Ondansetron HCl (Zofran) 4 mg IV Q4H PRN PRN Reason: Nausea And Vomiting Sodium Chloride (Sodium Chloride Flush Syringe 10 Ml) 10 ml IV BID [facility] Last Admin: 08/17/17 21:03 Dose: 10 ml Sodium Chloride (Sodium Chloride Flush Syringe 10 Ml) 10 ml IV PRN PRN PRN Reason: LINE FLUSH Physical Examination - Vital Signs Vital Signs: Vital Signs Temp Pulse Resp BP Pulse Ox 99.1 F 103 H 18 168/138 99 08/16/17 16:58 08/16/17 16:58 08/16/17 16:58 08/16/17 16:58 08/16/17 16:58 Results - Laboratory Findings CBC and BMP: 08/17/17 06:42 08/17/17 06:42 Abnormal Lab Findings: Abnormal Labs 08/17/17 08/17/17 06:42 06:42 MCH 27 L Lymph # 0.7 L Seg Neutrophils % 84.2 H Glucose 156 H
[2017-08-18] MEDS: LOVENOX SUB-Q SCH (15:23)
[2017-08-18] MEDS: SODIUM CHLORIDE FLUSH SYRINGE 10 ML IV SCH ×2 (15:25→22:08)
[2017-08-18] MEDS: DELTASONE PO SCH (17:59)
--- NOTE | 2017-08-18 19:12 | XRay Report ---
FINAL REPORT EXAM: XR KNEE 3V RT HISTORY: status post fall TECHNIQUE: AP, oblique, and lateral views of the right knee PRIORS: None. FINDINGS: No acute fracture or dislocation is seen. The soft tissues are unremarkable with no evidence for suprapatellar joint effusion. Joint spaces are maintained and bony mineralization is normal. IMPRESSION: Negative views of the right knee.
[2017-08-18] MEDS: SODIUM CHLORIDE FLUSH SYRINGE 10 ML IV PRN (22:03)
[2017-08-19] MEDS ORDERED: DILAUDID IV PRN ×2 (07:00→10:35)
[2017-08-19] MEDS: DILAUDID IV PRN ×3 (10:56→16:06)
[2017-08-19] MEDS: DELTASONE PO SCH (11:11)
[2017-08-19] MEDS: LOVENOX SUB-Q SCH (11:12)
[2017-08-19] MEDS: SODIUM CHLORIDE FLUSH SYRINGE 10 ML IV SCH (11:13)
--- NOTE | 2017-08-19 12:26 | Progress Note ---
<PARTH SCHNEIDER - Last Filed: 08/19/17 14:43> Assessment and Plan Assessment and plan: Patient is a 46 year old female who presented to ED for acute on chronic lower back pain. Patient states that she is unable to sit up and has difficulty walking at this time due to the pain. Acute on chronic back pain, intractable Continue IV dilaudid for pain management, consult placed to orthopedic and neurology, MRI LS spine shows DJD kedar degen changes in the L5-S1 facet joints No acute changes, awaiting records from [facility], Pt will f/u with Dr Currie for her surgery Neurology rec's steroid taper which patient has been initiated on, continue, will follow up with PT when pain has improved Knee pain S/p fall one day ago,continue fall precautions, R knee x-ray neg, PT as tolerated Hypertension Likely secondary to pain, will continue to monitor, hydralazine PRN Hyperglycemia A1c 5.4 DVT prophylaxis Lovenox History Interval history: Patient seen and examined. Now complains of right knee pain after fall yesterday. No other new complaints at this time. Labs and nursing notes reviewed. Hospitalist Physical - Constitutional Vitals: Temp Pulse Resp BP Pulse Ox 98.2 F 80 20 147/99 99 08/19/17 08:28 08/19/17 08:28 08/19/17 08:28 08/19/17 08:28 08/19/17 10:00 General appearance: Present: no acute distress, well-nourished, obese - EENT Eyes: Present: PERRL, EOM intact ENT: hearing intact, clear oral mucosa - Neck Neck: Present: supple, normal ROM - Respiratory Respiratory effort: normal Respiratory: bilateral: CTA - Cardiovascular Rhythm: regular Heart Sounds: Present: S1 & S2. Absent: rub, click - Extremities Extremities: no ischemia, No edema - Abdominal General gastrointestinal: soft, non-tender, non-distended - Integumentary Integumentary: Present: clear, warm, dry - Psychiatric Psychiatric: appropriate mood/affect, intact judgment & insight, cooperative - Neurologic Neurologic: CNII-XII intact, moves all extremities Results - Labs CBC & Chem 7: 08/17/17 06:42 08/17/17 06:42 Labs: Laboratory Last Values WBC 4.9 K/mm3 (4.5-11.0) 08/17/17 06:42 RBC 4.84 M/mm3 (3.65-5.03) 08/17/17 06:42 Hgb 12.9 gm/dl (10.1-14.3) 08/17/17 06:42 Hct 40.1 % (30.3-42.9) 08/17/17 06:42 MCV 83 fl (79-97) 08/17/17 06:42 MCH 27 pg (28-32) L 08/17/17 06:42 MCHC 32 % (30-34) 08/17/17 06:42 RDW 15.0 % (13.2-15.2) 08/17/17 06:42 Plt Count 262 K/mm3 (140-440) 08/17/17 06:42 Lymph % (Auto) 14.8 % (13.4-35.0) 08/17/17 06:42 [place] % (Auto) 0.9 % (0.0-7.3) 08/17/17 06:42 Eos % (Auto) 0.0 % (0.0-4.3) 08/17/17 06:42 Baso % (Auto) 0.1 % (0.0-1.8) 08/17/17 06:42 Lymph # 0.7 K/mm3 (1.2-5.4) L 08/17/17 06:42 [place] # 0.0 K/mm3 (0.0-0.8) 08/17/17 06:42 Eos # 0.0 K/mm3 (0.0-0.4) 08/17/17 06:42 Baso # 0.0 K/mm3 (0.0-0.1) 08/17/17 06:42 Seg Neutrophils % 84.2 % (40.0-70.0) H 08/17/17 06:42 Seg Neutrophils # 4.1 K/mm3 (1.8-7.7) 08/17/17 06:42 Sodium 141 mmol/L (137-145) 08/17/17 06:42 Potassium 4.8 mmol/L (3.6-5.0) 08/17/17 06:42 Chloride 102.5 mmol/L (98-107) 08/17/17 06:42 Carbon Dioxide 23 mmol/L (22-30) 08/17/17 06:42 Anion Gap 20 mmol/L 08/17/17 06:42 BUN 16 mg/dL (7-17) 08/17/17 06:42 Creatinine 0.8 mg/dL (0.7-1.2) 08/17/17 06:42 Estimated GFR > 60 ml/min 08/17/17 06:42 BUN/Creatinine Ratio 20 % 08/17/17 06:42 Glucose 156 mg/dL (65-100) H 08/17/17 06:42 POC Glucose 77 (70-105) 08/18/17 16:20 Hemoglobin A1c 5.4 % (4-6) 08/18/17 06:27 Calcium 9.2 mg/dL (8.4-10.2) 08/17/17 06:42 <KARENA AVALOS O - Last Filed: 08/19/17 18:52> Assessment and Plan Assessment and plan: I saw and evaluated the patient. I agree with the findings and the plan of care as documented in the Nurse Practitioner's~note, with the following corrections and additions. Patient still c/o severe back pain. Continue current management. Neurology following. Hospitalist Physical - Constitutional Vitals: Temp Pulse Resp BP Pulse Ox 98.2 F 80 20 147/99 99 08/19/17 08:28 08/19/17 08:28 08/19/17 08:28 08/19/17 08:28 08/19/17 10:00 Results - Labs CBC & Chem 7: 08/17/17 06:42 08/17/17 06:42 Labs: Laboratory Last Values WBC 4.9 K/mm3 (4.5-11.0) 08/17/17 06:42 RBC 4.84 M/mm3 (3.65-5.03) 08/17/17 06:42 Hgb 12.9 gm/dl (10.1-14.3) 08/17/17 06:42 Hct 40.1 % (30.3-42.9) 08/17/17 06:42 MCV 83 fl (79-97) 08/17/17 06:42 MCH 27 pg (28-32) L 08/17/17 06:42 MCHC 32 % (30-34) 08/17/17 06:42 RDW 15.0 % (13.2-15.2) 08/17/17 06:42 Plt Count 262 K/mm3 (140-440) 08/17/17 06:42 Lymph % (Auto) 14.8 % (13.4-35.0) 08/17/17 06:42 [place] % (Auto) 0.9 % (0.0-7.3) 08/17/17 06:42 Eos % (Auto) 0.0 % (0.0-4.3) 08/17/17 06:42 Baso % (Auto) 0.1 % (0.0-1.8) 08/17/17 06:42 Lymph # 0.7 K/mm3 (1.2-5.4) L 08/17/17 06:42 [place] # 0.0 K/mm3 (0.0-0.8) 08/17/17 06:42 Eos # 0.0 K/mm3 (0.0-0.4) 08/17/17 06:42 Baso # 0.0 K/mm3 (0.0-0.1) 08/17/17 06:42 Seg Neutrophils % 84.2 % (40.0-70.0) H 08/17/17 06:42 Seg Neutrophils # 4.1 K/mm3 (1.8-7.7) 08/17/17 06:42 Sodium 141 mmol/L (137-145) 08/17/17 06:42 Potassium 4.8 mmol/L (3.6-5.0) 08/17/17 06:42 Chloride 102.5 mmol/L (98-107) 08/17/17 06:42 Carbon Dioxide 23 mmol/L (22-30) 08/17/17 06:42 Anion Gap 20 mmol/L 08/17/17 06:42 BUN 16 mg/dL (7-17) 08/17/17 06:42 Creatinine 0.8 mg/dL (0.7-1.2) 08/17/17 06:42 Estimated GFR > 60 ml/min 08/17/17 06:42 BUN/Creatinine Ratio 20 % 08/17/17 06:42 Glucose 156 mg/dL (65-100) H 08/17/17 06:42 POC Glucose 77 (70-105) 08/18/17 16:20 Hemoglobin A1c 5.4 % (4-6) 08/18/17 06:27 Calcium 9.2 mg/dL (8.4-10.2) 08/17/17 06:42
[2017-08-20] MEDS: DILAUDID IV PRN ×5 (00:10→23:25)
[2017-08-20] MEDS: SODIUM CHLORIDE FLUSH SYRINGE 10 ML IV SCH ×3 (00:13→23:25)
[2017-08-20] MEDS: SODIUM CHLORIDE FLUSH SYRINGE 10 ML IV PRN (07:16)
--- NOTE | 2017-08-20 08:59 | Progress Note ---
<PARTH SCHNEIDER - Last Filed: 08/20/17 14:47> Assessment and Plan Assessment and plan: Patient is a 46 year old female who presented to ED for acute on chronic lower back pain. Patient states that she is unable to sit up and has difficulty walking at this time due to the pain. Acute on chronic back pain, intractable Continue IV dilaudid for pain management, consult placed to orthopedic and neurology, MRI LS spine shows DJD kedar degen changes in the L5-S1 facet joints No acute changes, awaiting records from [facility] [place], Pt will f/u with Dr Currie for her surgery Neurology rec's steroid taper which patient has been initiated on, continue, will follow up with PT when pain has improved Knee pain S/p fall one day ago,continue fall precautions, R knee x-ray neg, PT as tolerated R LE pain Will order doppler to r/o DVT Hypertension Likely secondary to pain, will continue to monitor, hydralazine PRN Hyperglycemia A1c 5.4 DVT prophylaxis Lovenox History Interval history: Patient seen and examined. Now complains of right leg pain. No other new complaints at this time. Labs and nursing notes reviewed. Hospitalist Physical - Constitutional Vitals: Temp Pulse Resp BP Pulse Ox 98.5 F 82 20 148/84 98 08/20/17 08:11 08/20/17 08:11 08/20/17 08:11 08/20/17 08:11 08/20/17 08:11 General appearance: Present: mild distress, well-nourished, obese - EENT Eyes: Present: PERRL, EOM intact ENT: hearing intact, clear oral mucosa - Neck Neck: Present: supple, normal ROM - Respiratory Respiratory effort: normal Respiratory: bilateral: CTA - Cardiovascular Rhythm: regular Heart Sounds: Present: S1 & S2 - Extremities Extremities: no ischemia, pulses intact, No edema Extremity abnormal: tenderness (R LE) - Abdominal General gastrointestinal: soft, non-tender, non-distended - Integumentary Integumentary: Present: clear, warm, dry - Psychiatric Psychiatric: appropriate mood/affect, intact judgment & insight, cooperative - Neurologic Neurologic: CNII-XII intact, moves all extremities Results - Labs CBC & Chem 7: 08/17/17 06:42 08/17/17 06:42 Labs: Laboratory Last Values WBC 4.9 K/mm3 (4.5-11.0) 08/17/17 06:42 RBC 4.84 M/mm3 (3.65-5.03) 08/17/17 06:42 Hgb 12.9 gm/dl (10.1-14.3) 08/17/17 06:42 Hct 40.1 % (30.3-42.9) 08/17/17 06:42 MCV 83 fl (79-97) 08/17/17 06:42 MCH 27 pg (28-32) L 08/17/17 06:42 MCHC 32 % (30-34) 08/17/17 06:42 RDW 15.0 % (13.2-15.2) 08/17/17 06:42 Plt Count 262 K/mm3 (140-440) 08/17/17 06:42 Lymph % (Auto) 14.8 % (13.4-35.0) 08/17/17 06:42 [place] % (Auto) 0.9 % (0.0-7.3) 08/17/17 06:42 Eos % (Auto) 0.0 % (0.0-4.3) 08/17/17 06:42 Baso % (Auto) 0.1 % (0.0-1.8) 08/17/17 06:42 Lymph # 0.7 K/mm3 (1.2-5.4) L 08/17/17 06:42 [place] # 0.0 K/mm3 (0.0-0.8) 08/17/17 06:42 Eos # 0.0 K/mm3 (0.0-0.4) 08/17/17 06:42 Baso # 0.0 K/mm3 (0.0-0.1) 08/17/17 06:42 Seg Neutrophils % 84.2 % (40.0-70.0) H 08/17/17 06:42 Seg Neutrophils # 4.1 K/mm3 (1.8-7.7) 08/17/17 06:42 Sodium 141 mmol/L (137-145) 08/17/17 06:42 Potassium 4.8 mmol/L (3.6-5.0) 08/17/17 06:42 Chloride 102.5 mmol/L (98-107) 08/17/17 06:42 Carbon Dioxide 23 mmol/L (22-30) 08/17/17 06:42 Anion Gap 20 mmol/L 08/17/17 06:42 BUN 16 mg/dL (7-17) 08/17/17 06:42 Creatinine 0.8 mg/dL (0.7-1.2) 08/17/17 06:42 Estimated GFR > 60 ml/min 08/17/17 06:42 BUN/Creatinine Ratio 20 % 08/17/17 06:42 Glucose 156 mg/dL (65-100) H 08/17/17 06:42 POC Glucose 77 (70-105) 08/18/17 16:20 Hemoglobin A1c 5.4 % (4-6) 08/18/17 06:27 Calcium 9.2 mg/dL (8.4-10.2) 08/17/17 06:42 <KARENA AVALOS - Last Filed: 08/23/17 16:31> Assessment and Plan Assessment and plan: I saw and evaluated the patient. I agree with the findings and the plan of care as documented in the Nurse Practitioner's~note, with the following corrections and additions. Patient with acute on chronic back pain. Continue Dilaudid for pain management. Hospitalist Physical - Constitutional Vitals: Temp Pulse Resp BP Pulse Ox 97.8 F 69 20 146/100 96 08/21/17 16:06 08/21/17 16:06 08/21/17 16:06 08/21/17 11:44 08/21/17 16:06 Results - Labs CBC & Chem 7: 08/17/17 06:42 08/17/17 06:42 Labs: Laboratory Last Values WBC 4.9 K/mm3 (4.5-11.0) 08/17/17 06:42 RBC 4.84 M/mm3 (3.65-5.03) 08/17/17 06:42 Hgb 12.9 gm/dl (10.1-14.3) 08/17/17 06:42 Hct 40.1 % (30.3-42.9) 08/17/17 06:42 MCV 83 fl (79-97) 08/17/17 06:42 MCH 27 pg (28-32) L 08/17/17 06:42 MCHC 32 % (30-34) 08/17/17 06:42 RDW 15.0 % (13.2-15.2) 08/17/17 06:42 Plt Count 262 K/mm3 (140-440) 08/17/17 06:42 Lymph % (Auto) 14.8 % (13.4-35.0) 08/17/17 06:42 [place] % (Auto) 0.9 % (0.0-7.3) 08/17/17 06:42 Eos % (Auto) 0.0 % (0.0-4.3) 08/17/17 06:42 Baso % (Auto) 0.1 % (0.0-1.8) 08/17/17 06:42 Lymph # 0.7 K/mm3 (1.2-5.4) L 08/17/17 06:42 [place] # 0.0 K/mm3 (0.0-0.8) 08/17/17 06:42 Eos # 0.0 K/mm3 (0.0-0.4) 08/17/17 06:42 Baso # 0.0 K/mm3 (0.0-0.1) 08/17/17 06:42 Seg Neutrophils % 84.2 % (40.0-70.0) H 08/17/17 06:42 Seg Neutrophils # 4.1 K/mm3 (1.8-7.7) 08/17/17 06:42 Sodium 141 mmol/L (137-145) 08/17/17 06:42 Potassium 4.8 mmol/L (3.6-5.0) 08/17/17 06:42 Chloride 102.5 mmol/L (98-107) 08/17/17 06:42 Carbon Dioxide 23 mmol/L (22-30) 08/17/17 06:42 Anion Gap 20 mmol/L 08/17/17 06:42 BUN 16 mg/dL (7-17) 08/17/17 06:42 Creatinine 0.8 mg/dL (0.7-1.2) 08/17/17 06:42 Estimated GFR > 60 ml/min 08/17/17 06:42 BUN/Creatinine Ratio 20 % 08/17/17 06:42 Glucose 156 mg/dL (65-100) H 08/17/17 06:42 POC Glucose 77 (70-105) 08/18/17 16:20 Hemoglobin A1c 5.4 % (4-6) 08/18/17 06:27 Calcium 9.2 mg/dL (8.4-10.2) 08/17/17 06:42
[2017-08-20] MEDS: LOVENOX SUB-Q SCH (11:09)
[2017-08-20] MEDS: DELTASONE PO SCH (11:09)
[2017-08-21] MEDS: DILAUDID IV PRN ×2 (04:02→09:27)
[2017-08-21] MEDS: LOVENOX SUB-Q SCH (09:27)
[2017-08-21] MEDS: DELTASONE PO SCH (09:27)
--- NOTE | 2017-08-21 10:05 | Progress Note ---
Assessment and Plan Assessment and plan: Patient is a 46 year old female who presented to ED for acute on chronic lower back pain. Patient states that she is unable to sit up and has difficulty walking at this time due to the pain. Acute on chronic back pain, intractable Continue IV dilaudid for pain management, consult placed to orthopedic and neurology, MRI LS spine shows DJD kedar degen changes in the L5-S1 facet joints No acute changes, awaiting records from [facility], Pt will f/u with Dr Currie for her surgery Neurology rec's steroid taper which patient has been initiated on, continue, will follow up with PT when pain has improved Knee pain S/p fall one day ago,continue fall precautions, R knee x-ray neg, PT as tolerated R LE pain No evidence of DVT Hypertension Likely secondary to pain, will continue to monitor, hydralazine PRN Hyperglycemia A1c 5.4 DVT prophylaxis Lovenox History Interval history: Patient seen and examined. No new complaints at this time, leg pain has improved. Labs and nursing notes reviewed. Hospitalist Physical - Constitutional Vitals: Temp Pulse Resp BP Pulse Ox 98.7 F 79 20 135/94 96 08/21/17 07:46 08/21/17 07:46 08/21/17 07:46 08/21/17 07:46 08/21/17 07:46 General appearance: Present: no acute distress, well-nourished, obese - EENT Eyes: Present: PERRL, EOM intact ENT: hearing intact, clear oral mucosa - Neck Neck: Present: supple, normal ROM - Respiratory Respiratory effort: normal Respiratory: bilateral: CTA - Cardiovascular Rhythm: regular Heart Sounds: Present: S1 & S2 - Extremities Extremities: no ischemia, pulses intact, No edema - Abdominal General gastrointestinal: soft, non-tender, non-distended - Integumentary Integumentary: Present: clear, warm, dry - Psychiatric Psychiatric: appropriate mood/affect, intact judgment & insight, cooperative - Neurologic Neurologic: CNII-XII intact, moves all extremities Results - Labs CBC & Chem 7: 08/17/17 06:42 08/17/17 06:42 Labs: Laboratory Last Values WBC 4.9 K/mm3 (4.5-11.0) 08/17/17 06:42 RBC 4.84 M/mm3 (3.65-5.03) 08/17/17 06:42 Hgb 12.9 gm/dl (10.1-14.3) 08/17/17 06:42 Hct 40.1 % (30.3-42.9) 08/17/17 06:42 MCV 83 fl (79-97) 08/17/17 06:42 MCH 27 pg (28-32) L 04 06:42 MCHC 32 % (30-34) 04 06:42 RDW 15.0 % (13.2-15.2) 04 06:42 Plt Count 262 K/mm3 (140-440) 08/17/17 06:42 Lymph % (Auto) 14.8 % (13.4-35.0) 08/17/17 06:42 [place] % (Auto) 0.9 % (0.0-7.3) 08/17/17 06:42 Eos % (Auto) 0.0 % (0.0-4.3) 08/17/17 06:42 Baso % (Auto) 0.1 % (0.0-1.8) 08/17/17 06:42 Lymph # 0.7 K/mm3 (1.2-5.4) L 08/17/17 06:42 [place] # 0.0 K/mm3 (0.0-0.8) 08/17/17 06:42 Eos # 0.0 K/mm3 (0.0-0.4) 08/17/17 06:42 Baso # 0.0 K/mm3 (0.0-0.1) 08/17/17 06:42 Seg Neutrophils % 84.2 % (40.0-70.0) H 08/17/17 06:42 Seg Neutrophils # 4.1 K/mm3 (1.8-7.7) 08/17/17 06:42 Sodium 141 mmol/L (137-145) 08/17/17 06:42 Potassium 4.8 mmol/L (3.6-5.0) 08/17/17 06:42 Chloride 102.5 mmol/L (98-107) 08/17/17 06:42 Carbon Dioxide 23 mmol/L (22-30) 08/17/17 06:42 Anion Gap 20 mmol/L 08/17/17 06:42 BUN 16 mg/dL (7-17) 08/17/17 06:42 Creatinine 0.8 mg/dL (0.7-1.2) 08/17/17 06:42 Estimated GFR > 60 ml/min 08/17/17 06:42 BUN/Creatinine Ratio 20 % 08/17/17 06:42 Glucose 156 mg/dL (65-100) H 08/17/17 06:42 POC Glucose 77 (70-105) 08/18/17 16:20 Hemoglobin A1c 5.4 % (4-6) 08/18/17 06:27 Calcium 9.2 mg/dL (8.4-10.2) 08/17/17 06:42
[2017-08-21 12:39] VITALS: BP 146/100
[2017-08-21] MEDS: SODIUM CHLORIDE FLUSH SYRINGE 10 ML IV SCH (13:48)
[2017-08-21] MEDS ORDERED: PERCOCET 5/325 PO PRN (14:20)
[2017-08-21] MEDS ORDERED: DILAUDID PO PRN (15:19)
--- NOTE | 2017-08-21 15:57 | Discharge Summary ---
Providers - Providers Date of Admission: 08/16/17 22:37 Date of discharge: 08/21/17 Attending physician: KARENA AVALOS 08/16/17 22:37 Consult to Interventional Radiology [CONS] Routine Consulting Provider: OLVIN JACOBS Reason For Exam: back pain, disc buldge Place consult to:: dr. jacobs Notified:: office Phone number called:: Was contact made?: Yes If yes, spoke with:: haris Time called:: 09:21 08/17/17 08:36 Consult to Physician [CONS] Routine Comment: Consulting Provider: YOUSUF HAND Physician Instructions: Reason For Exam: severe low back pain/disc bulge/degen L5-S1 08/17/17 08:42 Consult to Physician [CONS] Routine Comment: Consulting Provider: LUCIANO HANDLEY Physician Instructions: Reason For Exam: Low back pain/Degen spine dis/L5-S1 disc bulge 08/17/17 17:43 Consult to Physician [CONS] Routine Comment: Consulting Provider: ELIDA AUSTIN Physician Instructions: Reason For Exam: low back pain/radiculopathy/L5-S1 disk bulge 08/21/17 10:04 Physical Therapy Evaluation and Treat [CONS] Routine Comment: Reason For Exam: low back pain Primary care physician: KARENA MOY Hospitalization Condition: Fair Disposition: DC-01 TO HOME OR SELFCARE Time spent for discharge: 32 minutes Core Measure Documentation - Palliative Care Palliative Care/ Comfort Measures: Not Applicable - Core Measures Any of the following diagnoses?: none Exam - Constitutional Vitals: Temp Pulse Resp BP Pulse Ox 98.7 F 75 20 146/100 97 08/21/17 11:45 08/21/17 11:45 08/21/17 11:45 08/21/17 11:44 08/21/17 11:45 General appearance: Present: no acute distress, well-nourished - EENT Eyes: Present: PERRL ENT: hearing intact, clear oral mucosa - Neck Neck: Present: supple, normal ROM - Respiratory Respiratory effort: normal Respiratory: bilateral: CTA - Cardiovascular Heart Sounds: Present: S1 & S2. Absent: rub, click - Extremities Extremities: pulses symmetrical, No edema Peripheral Pulses: within normal limits - Abdominal General gastrointestinal: Present: soft, non-tender, non-distended, normal bowel sounds Female genitourinary: Present: normal - Integumentary Integumentary: Present: clear, warm, dry - Musculoskeletal Musculoskeletal: gait normal, strength equal bilaterally - Psychiatric Psychiatric: appropriate mood/affect, intact judgment & insight - Neurologic Neurologic: CNII-XII intact, moves all extremities Plan Activity: fall precautions (Do not attempt to ambulate without assistance) Weight Bearing Status: Weight Bear as Tolerated (with assistance) Diet: low fat, low cholesterol, low salt Durable Medical Equipment Needed Upon Discharge: Bedside commode -elevated Additional Instructions: Follow up with Dr Currie within 5 days of discharge. Follow up with: KARENA MOY MD [Primary Care Provider] - 7 Days Prescriptions: HYDROmorphone [Dilaudid] 2 mg PO Q4H PRN #12 tablet PRN Reason: Pain , Severe (7-10) predniSONE [Deltasone] 20 mg PO DAILY #4 tablet
[2017-08-22] MEDS ORDERED: DELTASONE PO SCH (10:00)
== END 2017-08-21 18:45 | disposition home or self-care (01) | DRG 552 ==
LOC: ED 16:53 → 3A 22:37
PROVIDERS: ADMIT Internal Medicine; ATTEND Internal Medicine
DX: M47.27 Other spondylosis with radiculopathy, lumbosacral region (principal); I10 Essential (primary) hypertension; G89.29 Other chronic pain; M54.9 Dorsalgia, unspecified; F17.290 Nicotine dependence, other tobacco product, uncomplicated; Z88.8 Allergy status to other drugs, medicaments and biological substances; Z88.6 Allergy status to analgesic agent; Z91.041 Radiographic dye allergy status; Z88.5 Allergy status to narcotic agent; Z91.013 Allergy to seafood; Z90.710 Acquired absence of both cervix and uterus; Z82.49 Family history of ischemic heart disease and other diseases of the circulatory system
CPT/HCPCS: 36415; 72131; 72148; 80048; 82962; 83036; 85025; 96372; 96374; J1170; J1200; J1650; J2930; J7512

== ENCOUNTER 2018-07-07 13:51 | Inpatient (IN) | payer MEDICARE ==
[2018-07-07] MEDS ORDERED: NARCAN 2 MG/2 ML IV ONE (14:01)
[2018-07-07] MEDS ORDERED: NACL 0.9% 1000 ML 1,000 ML IV ONE ×2 (14:02→16:01)
--- NOTE | 2018-07-07 14:09 | Emergency Department Report ---
ED Altered Mental Status HPI - General Chief Complaint: Altered Mental Status Stated Complaint: UNRESPONSIVE Time Seen by Provider: 07/07/18 14:00 Source: EMS Mode of arrival: Stretcher Limitations: Altered Mental Status - History of Present Illness Initial Comments: I obtained history from EMS and electronic medical record Ms. Rivera is a 47-year-old female who was found unresponsive by relative. Found face down with sonorous respiration. Records EMS appeared to awaken briefly with naloxone. Does respond to sternal rub. Hx of CKD and DM according to EMS. Does not take any medications. Patient is lethargic and nonverbal. Unable to obtain further hx. MD Complaint: altered mental status, decreased responsiveness -: Sudden, This afternoon Severity: severe Context: unknown Treatments Prior to Arrival: other pre-hosp med (naloxone) - Related Data Previous Rx's Medication Instructions Recorded Last Taken Type amLODIPine [Norvasc] 10 mg PO DAILY #30 tab 07/11/17 Unknown Rx hydroCHLOROthiazide [HCTZ] 12.5 mg PO QDAY #30 capsule 07/11/17 Unknown Rx HYDROmorphone [Dilaudid] 2 mg PO Q4H PRN #12 tablet 08/21/17 Unknown Rx predniSONE [Deltasone] 20 mg PO DAILY #4 tablet 08/21/17 Unknown Rx Allergies Allergy/AdvReac Type Severity Reaction Status Date / Time acetaminophen [From Tylenol] Allergy Vomiting Verified 07/11/17 07:50 codeine Allergy Vomiting Verified 07/11/17 07:50 iodine Allergy Vomiting Verified 07/11/17 07:50 shellfish derived Allergy Vomiting Verified 07/11/17 07:50 NSAIDS (Non-Steroidal AdvReac Unknown Verified 07/11/17 07:50 Anti-Inflamma muscle relaxers AdvReac Unknown Uncoded 07/11/17 07:50 ED Review of Systems ROS: Stated complaint: UNRESPONSIVE Other details as noted in HPI Comment: Unobtainable due to pts medical conditions (lethargic and altered mental status) ED Past Medical Hx - Past Medical History Previous Medical History?: Yes Hx Hypertension: Yes Hx Diabetes: Yes Hx Liver Disease: Yes Hx Renal Disease: Yes (no dialysis) Hx Arthritis: Yes (RHEUMATROID ARTHRITIS) Hx Asthma: Yes Additional medical history: degenerative bone disorder, RA, sciatica, "I may have stomach cancer", - Surgical History Past Surgical History?: Yes Hx Cholecystectomy: Yes Additional Surgical History: hysterectomy, gastric bypass, C/S - Family History Family history: other (unable to be obtained) - Social History Smoking Status: Unknown if ever smoked Substance Use Type: Other (unable to be obtained) - Medications Home Medications: Home Medications Medication Instructions Recorded Confirmed Last Taken Type amLODIPine [Norvasc] 10 mg PO DAILY #30 tab 07/11/17 Unknown Rx hydroCHLOROthiazide [HCTZ] 12.5 mg PO QDAY #30 capsule 07/11/17 Unknown Rx HYDROmorphone [Dilaudid] 2 mg PO Q4H PRN #12 tablet 08/21/17 Unknown Rx predniSONE [Deltasone] 20 mg PO DAILY #4 tablet 08/21/17 Unknown Rx ED Physical Exam - General Limitations: Altered Mental Status General appearance: lethargic, other (snoring, vigorous response to sternal rub, ) - Head Head exam: Present: atraumatic, normocephalic - Eye Eye exam: Present: normal appearance Pupils: Present: other (pinpoint pupils) - ENT ENT exam: Present: mucous membranes moist - Neck Neck exam: Present: normal inspection, full ROM - Respiratory Respiratory exam: Present: normal lung sounds bilaterally. Absent: respiratory distress, wheezes, rales, rhonchi - Cardiovascular Cardiovascular Exam: Present: regular rate, normal rhythm, normal heart sounds. Absent: systolic murmur, diastolic murmur, rubs, gallop - GI/Abdominal GI/Abdominal exam: Present: soft, normal bowel sounds. Absent: distended, tenderness, guarding, rebound - Extremities Exam Extremities exam: Present: normal inspection - Back Exam Back exam: Present: normal inspection - Neurological Exam Neurological exam: Present: other (moves all extremities 4, localizes painful stimuli) - Psychiatric Psychiatric exam: Present: other (lethargic) - Skin Skin exam: Present: warm, dry, intact, normal color. Absent: rash ED Course Vital Signs 07/07/18 07/07/18 07/07/18 13:59 14:08 14:41 Pulse Rate 66 67 65 Respiratory 13 10 L 11 L Rate Blood Pressure 117/39 95/48 O2 Sat by Pulse 100 100 Oximetry 07/07/18 07/07/18 07/07/18 15:01 15:30 16:00 Pulse Rate 62 65 76 Respiratory 9 L 10 L 11 L Rate Blood Pressure 94/37 103/50 100/42 O2 Sat by Pulse 94 98 94 Oximetry - Lab Data Result diagrams: 07/07/18 14:48 07/07/18 14:48 Lab Results 07/07/18 07/07/18 07/07/18 Range/Units 14:17 14:17 14:48 WBC 3.6 L (4.5-11.0) K/mm3 RBC 3.96 (3.65-5.03) M/mm3 Hgb 9.7 L (10.1-14.3) gm/dl Hct 30.4 (30.3-42.9) % MCV 77 L (79-97) fl MCH 24 L (28-32) pg MCHC 32 (30-34) % RDW 18.2 H (13.2-15.2) % Plt Count 200 (140-440) K/mm3 Lymph % (Auto) 9.6 L (13.4-35.0) % [place] % (Auto) 4.1 (0.0-7.3) % Eos % (Auto) 0.0 (0.0-4.3) % Baso % (Auto) 0.4 (0.0-1.8) % Lymph # 0.3 L (1.2-5.4) K/mm3 [place] # 0.1 (0.0-0.8) K/mm3 Eos # 0.0 (0.0-0.4) K/mm3 Baso # 0.0 (0.0-0.1) K/mm3 Seg Neutrophils % 85.9 H (40.0-70.0) % Seg Neutrophils # 3.1 (1.8-7.7) K/mm3 POC ABG pH (7.35-7.45) POC ABG pCO2 (35-45) POC ABG pO2 (80-105) POC ABG HCO3 POC ABG Total CO2 POC ABG O2 Sat POC ABG Base Excess FiO2 % Sodium (137-145) mmol/L Potassium (3.6-5.0) mmol/L Chloride (98-107) mmol/L Carbon Dioxide (22-30) mmol/L Anion Gap mmol/L BUN (7-17) mg/dL Creatinine (0.7-1.2) mg/dL Estimated GFR ml/min BUN/Creatinine Ratio % Glucose (65-100) mg/dL Lactic Acid (0.7-2.0) mmol/L Calcium (8.4-10.2) mg/dL Total Bilirubin (0.1-1.2) mg/dL AST (5-40) units/L ALT (7-56) units/L Alkaline Phosphatase (35-129) units/L Ammonia (25-60) umol/L Total Creatine Kinase (30-135) units/L Troponin T (0.00-0.029) ng/mL Total Protein (6.3-8.2) g/dL Albumin (3.9-5) g/dL Albumin/Globulin Ratio % TSH (0.270-4.200) mlU/mL Urine Color Yellow (Yellow) Urine Turbidity Slightly-cloudy (Clear) Urine pH 5.0 (5.0-7.0) Ur Specific [place] 1.032 H (1.003-1.030) Urine Protein <15 mg/dl (Negative) mg/dL Urine Glucose (UA) Neg (Negative) mg/dL Urine Ketones Neg (Negative) mg/dL Urine Blood Neg (Negative) Urine Nitrite Neg (Negative) Urine Bilirubin Neg (Negative) Urine Urobilinogen < 2.0 (<2.0) mg/dL Ur Leukocyte Esterase Neg (Negative) Urine WBC (Auto) 5.0 (0.0-6.0) /HPF Urine RBC (Auto) 1.0 (0.0-6.0) /HPF Urine Bacteria (Auto) 1+ (Negative) /HPF Urine Mucus Few /HPF Urine HCG, Qual Negative (Negative) Urine Opiates Screen Presumptive negative Urine Methadone Screen Presumptive negative Acetaminophen (10.0-30.0) ug/mL Ur Barbiturates Screen Presumptive negative Ur Phencyclidine Scrn Presumptive negative Ur Amphetamines Screen Presumptive negative U Benzodiazepines Scrn Presumptive negative Urine Cocaine Screen Presumptive negative U Marijuana (THC) Screen Presumptive negative Drugs of Abuse Note Disclamer Plasma/Serum Alcohol (0-0.07) % 07/07/18 07/07/18 07/07/18 Range/Units 14:48 14:48 14:48 WBC (4.5-11.0) K/mm3 RBC (3.65-5.03) M/mm3 Hgb (10.1-14.3) gm/dl Hct (30.3-42.9) % MCV (79-97) fl MCH (28-32) pg MCHC (30-34) % RDW (13.2-15.2) % Plt Count (140-440) K/mm3 Lymph % (Auto) (13.4-35.0) % [place] % (Auto) (0.0-7.3) % Eos % (Auto) (0.0-4.3) % Baso % (Auto) (0.0-1.8) % Lymph # (1.2-5.4) K/mm3 [place] # (0.0-0.8) K/mm3 Eos # (0.0-0.4) K/mm3 Baso # (0.0-0.1) K/mm3 Seg Neutrophils % (40.0-70.0) % Seg Neutrophils # (1.8-7.7) K/mm3 POC ABG pH (7.35-7.45) POC ABG pCO2 (35-45) POC ABG pO2 (80-105) POC ABG HCO3 POC ABG Total CO2 POC ABG O2 Sat POC ABG Base Excess FiO2 % Sodium 139 (137-145) mmol/L Potassium 3.6 (3.6-5.0) mmol/L Chloride 102.5 (98-107) mmol/L Carbon Dioxide 17 L (22-30) mmol/L Anion Gap 23 mmol/L BUN 14 (7-17) mg/dL Creatinine 1.0 (0.7-1.2) mg/dL Estimated GFR > 60 ml/min BUN/Creatinine Ratio 14 % Glucose 234 H (65-100) mg/dL Lactic Acid 4.60 H* (0.7-2.0) mmol/L Calcium 8.5 (8.4-10.2) mg/dL Total Bilirubin 0.20 (0.1-1.2) mg/dL AST 26 (5-40) units/L ALT 73 H (7-56) units/L Alkaline Phosphatase 203 H (35-129) units/L Ammonia 34.0 (25-60) umol/L Total Creatine Kinase 100 (30-135) units/L Troponin T < 0.010 (0.00-0.029) ng/mL Total Protein 7.3 (6.3-8.2) g/dL Albumin 4.0 (3.9-5) g/dL Albumin/Globulin Ratio 1.2 % TSH (0.270-4.200) mlU/mL Urine Color (Yellow) Urine Turbidity (Clear) Urine pH (5.0-7.0) Ur Specific [place] (1.003-1.030) Urine Protein (Negative) mg/dL Urine Glucose (UA) (Negative) mg/dL Urine Ketones (Negative) mg/dL Urine Blood (Negative) Urine Nitrite (Negative) Urine Bilirubin (Negative) Urine Urobilinogen (<2.0) mg/dL Ur Leukocyte Esterase (Negative) Urine WBC (Auto) (0.0-6.0) /HPF Urine RBC (Auto) (0.0-6.0) /HPF Urine Bacteria (Auto) (Negative) /HPF Urine Mucus /HPF Urine HCG, Qual (Negative) Urine Opiates Screen Urine Methadone Screen Acetaminophen (10.0-30.0) ug/mL Ur Barbiturates Screen Ur Phencyclidine Scrn Ur Amphetamines Screen U Benzodiazepines Scrn Urine Cocaine Screen U Marijuana (THC) Screen Drugs of Abuse Note Plasma/Serum Alcohol (0-0.07) % 07/07/18 07/07/18 07/07/18 Range/Units 14:48 14:48 14:48 WBC (4.5-11.0) K/mm3 RBC (3.65-5.03) M/mm3 Hgb (10.1-14.3) gm/dl Hct (30.3-42.9) % MCV (79-97) fl MCH (28-32) pg MCHC (30-34) % RDW (13.2-15.2) % Plt Count (140-440) K/mm3 Lymph % (Auto) (13.4-35.0) % [place] % (Auto) (0.0-7.3) % Eos % (Auto) (0.0-4.3) % Baso % (Auto) (0.0-1.8) % Lymph # (1.2-5.4) K/mm3 [place] # (0.0-0.8) K/mm3 Eos # (0.0-0.4) K/mm3 Baso # (0.0-0.1) K/mm3 Seg Neutrophils % (40.0-70.0) % Seg Neutrophils # (1.8-7.7) K/mm3 POC ABG pH (7.35-7.45) POC ABG pCO2 (35-45) POC ABG pO2 (80-105) POC ABG HCO3 POC ABG Total CO2 POC ABG O2 Sat POC ABG Base Excess FiO2 % Sodium (137-145) mmol/L Potassium (3.6-5.0) mmol/L Chloride (98-107) mmol/L Carbon Dioxide (22-30) mmol/L Anion Gap mmol/L BUN (7-17) mg/dL Creatinine (0.7-1.2) mg/dL Estimated GFR ml/min BUN/Creatinine Ratio % Glucose (65-100) mg/dL Lactic Acid (0.7-2.0) mmol/L Calcium (8.4-10.2) mg/dL Total Bilirubin (0.1-1.2) mg/dL AST (5-40) units/L ALT (7-56) units/L Alkaline Phosphatase (35-129) units/L Ammonia (25-60) umol/L Total Creatine Kinase (30-135) units/L Troponin T (0.00-0.029) ng/mL Total Protein (6.3-8.2) g/dL Albumin (3.9-5) g/dL Albumin/Globulin Ratio % TSH 1.310 (0.270-4.200) mlU/mL Urine Color (Yellow) Urine Turbidity (Clear) Urine pH (5.0-7.0) Ur Specific [place] (1.003-1.030) Urine Protein (Negative) mg/dL Urine Glucose (UA) (Negative) mg/dL Urine Ketones (Negative) mg/dL Urine Blood (Negative) Urine Nitrite (Negative) Urine Bilirubin (Negative) Urine Urobilinogen (<2.0) mg/dL Ur Leukocyte Esterase (Negative) Urine WBC (Auto) (0.0-6.0) /HPF Urine RBC (Auto) (0.0-6.0) /HPF Urine Bacteria (Auto) (Negative) /HPF Urine Mucus /HPF Urine HCG, Qual (Negative) Urine Opiates Screen Urine Methadone Screen Acetaminophen 156.9 H (10.0-30.0) ug/mL Ur Barbiturates Screen Ur Phencyclidine Scrn Ur Amphetamines Screen U Benzodiazepines Scrn Urine Cocaine Screen U Marijuana (THC) Screen Drugs of Abuse Note Plasma/Serum Alcohol < 0.01 (0-0.07) % 07/07/18 Range/Units 15:02 WBC (4.5-11.0) K/mm3 RBC (3.65-5.03) M/mm3 Hgb (10.1-14.3) gm/dl Hct (30.3-42.9) % MCV (79-97) fl MCH (28-32) pg MCHC (30-34) % RDW (13.2-15.2) % Plt Count (140-440) K/mm3 Lymph % (Auto) (13.4-35.0) % [place] % (Auto) (0.0-7.3) % Eos % (Auto) (0.0-4.3) % Baso % (Auto) (0.0-1.8) % Lymph # (1.2-5.4) K/mm3 [place] # (0.0-0.8) K/mm3 Eos # (0.0-0.4) K/mm3 Baso # (0.0-0.1) K/mm3 Seg Neutrophils % (40.0-70.0) % Seg Neutrophils # (1.8-7.7) K/mm3 POC ABG pH 7.334 L (7.35-7.45) POC ABG pCO2 28.5 L (35-45) POC ABG pO2 94 (80-105) POC ABG HCO3 15.2 POC ABG Total CO2 16 POC ABG O2 Sat 97 POC ABG Base Excess -11 FiO2 21 % Sodium (137-145) mmol/L Potassium (3.6-5.0) mmol/L Chloride (98-107) mmol/L Carbon Dioxide (22-30) mmol/L Anion Gap mmol/L BUN (7-17) mg/dL Creatinine (0.7-1.2) mg/dL Estimated GFR ml/min BUN/Creatinine Ratio % Glucose (65-100) mg/dL Lactic Acid (0.7-2.0) mmol/L Calcium (8.4-10.2) mg/dL Total Bilirubin (0.1-1.2) mg/dL AST (5-40) units/L ALT (7-56) units/L Alkaline Phosphatase (35-129) units/L Ammonia (25-60) umol/L Total Creatine Kinase (30-135) units/L Troponin T (0.00-0.029) ng/mL Total Protein (6.3-8.2) g/dL Albumin (3.9-5) g/dL Albumin/Globulin Ratio % TSH (0.270-4.200) mlU/mL Urine Color (Yellow) Urine Turbidity (Clear) Urine pH (5.0-7.0) Ur Specific [place] (1.003-1.030) Urine Protein (Negative) mg/dL Urine Glucose (UA) (Negative) mg/dL Urine Ketones (Negative) mg/dL Urine Blood (Negative) Urine Nitrite (Negative) Urine Bilirubin (Negative) Urine Urobilinogen (<2.0) mg/dL Ur Leukocyte Esterase (Negative) Urine WBC (Auto) (0.0-6.0) /HPF Urine RBC (Auto) (0.0-6.0) /HPF Urine Bacteria (Auto) (Negative) /HPF Urine Mucus /HPF Urine HCG, Qual (Negative) Urine Opiates Screen Urine Methadone Screen Acetaminophen (10.0-30.0) ug/mL Ur Barbiturates Screen Ur Phencyclidine Scrn Ur Amphetamines Screen U Benzodiazepines Scrn Urine Cocaine Screen U Marijuana (THC) Screen Drugs of Abuse Note Plasma/Serum Alcohol (0-0.07) % 07/07/18 16:12 EKG obtained 1537 Sinus tachycardia rate 100 beats a minute normal axis prolonged QT interval no ST elevation - Radiology Data Radiology results: report reviewed CT head: no acute process. - Medical Decision Making Upon arrival, patient had sonorous respirations but will localize painful stimuli. She Moved all 4 extremities purposefully. Hypotension also noted. Normal heart rate. Oxygen saturation on room air percent. I requested nurse to provide IV naloxone. one minute after naloxone administration, patient became alert, sat upright and started to actively retch. According to electronic medical record, previous medications included prednisone, hydrochlorothiazide, amlodipine and hydromorphone. I reviewed the [place] data prescription monitoring database, in 2018 there were multiple medications for opioid medications including oxycodone hydromorphone a nd fentanyl. None apparent in 2019 Naloxone infusion initiated, blood pressure improved. However patient continued to sleep heavily butarousable with sternal rub. I spoke with . He explained that brother was at the scene. did not have much information. Lactic acid elevated at 4. Without SIRS criteria but do not suspect sepsis. However sepsis protocol was initiated. Lactic acidosis possibly due to recent seizure activity or medication. Acute encephalopathy: Differential diagnosis drug overdose, seizure. presentation not typical for CVA or meningitis. No evidence of intracranial hemorrhage on CT scan. Upon review of labs, acetaminophen highly elevated. I suspect intentional order dose. I consulted toxicology who agreed with IV acetylcysteine Admitted in guarded condition with naloxone infusion to hospitalist service Critical Care Time: Yes Critical care time in (mins) excluding proc time.: 100 Critical care attestation.: If time is entered above; I have spent that time in minutes in the direct care of this critically ill patient, excluding procedure time. 400 minutes of critical care time excluding procedures were used in the care of the patient. Patient required multiple assessments and interventions. I reviewed the electronic medical record. I spoke with consultants involved in the care of the patient. ED Disposition Clinical Impression: Acetaminophen overdose, Drug overdose, Acute encephalopathy Disposition: [id number] OP ADMIT IP TO THIS HOSP Is pt being admited?: Yes Does the pt Need Aspirin: No Condition: Stable
[2018-07-07] MEDS ORDERED: ZOFRAN IV ONE (14:15)
[2018-07-07] MEDS ORDERED: NARCAN 2 MG/2 ML 2 MG in NACL 0.9% 500 ML 500 ML IV ONE (14:34)
[2018-07-07 14:37] LABS: Bacteria,Urine 1+ /HPF (Negative); Bilirubin,Urine NEG (Negative); Blood,Urine NEG (Negative); Color,Urine Yellow (Yellow); Mucus,Urine FEW /HPF; Protein,Urine <15 mg/dL mg/dL (Negative); Urobilinogen,Urine < 2.0 mg/dL (<2.0)
[2018-07-07 14:38] LABS: HCG Qualitative,Urine Negative (Negative)
[2018-07-07 14:55] LABS: Amphetamine Screen,Urine PRESUMPTIVE NEGATIVE; Benzodiazepines Screen,Urine PRESUMPTIVE NEGATIVE; Cannabinoid Screen,Urine PRESUMPTIVE NEGATIVE; Cocaine Screen,Urine PRESUMPTIVE NEGATIVE; Methadone Screen,Urine PRESUMPTIVE NEGATIVE; Opiate Screen,Urine PRESUMPTIVE NEGATIVE
[2018-07-07 15:16] LABS: Basophils % (Auto) 0.4 % (0.0-1.8); Hematocrit 30.4 % (30.3-42.9); Hemoglobin 9.7 gm/dl (10.1-14.3); Lymphocytes # (Auto) 0.3 K/mm3 (1.2-5.4); Lymphocytes % (Auto) 9.6 % (13.4-35.0); Mean Corpuscular HGB Conc 32 % (30-34); Mean Corpuscular Volume 77 fl (79-97); Monocytes # (Auto) 0.1 K/mm3 (0.0-0.8); Monocytes % (Auto) 4.1 % (0.0-7.3); Platelet Count 200 K/mm3 (140-440); Red Blood Count 3.96 M/mm3 (3.65-5.03); Red Cell Distribution Width 18.2 % (13.2-15.2)
--- NOTE | 2018-07-07 15:38 | XRay Report ---
AP CHEST: HISTORY: Altered mental status Borderline to mild cardiomegaly is identified which appears slightly increased since 07/11/17. The lungs are clear. No evidence for pneumonia, CHF or pneumothorax. The bony structures are grossly intact. IMPRESSION: Borderline heart size and pulmonary venous structures.
[2018-07-07 15:48] LABS: Alanine Aminotransferase 73 units/L (7-56); BUN/Creatinine Ratio 14; Blood Urea Nitrogen 14 mg/dL (7-17); Calcium 8.5 mg/dL (8.4-10.2); Hemolysis Index 0
[2018-07-07] MEDS ORDERED: NACL 0.9% 1000 ML IV ONE (16:14)
--- NOTE | 2018-07-07 17:04 | History and Physical Report ---
History of Present Illness Chief complaint: unresponsive History of present illness: 47 YO Female with HTN, DM, MO presents to ED for evaluation. Pt is lethargic and is unable to provide detailed history. Pt history taken from ED staff, EMS, and medical record. Pt found down and unresponsive by a family member. EMS notified, and upon arrival the patient was found to be unresponsive and was treated with Naloxone and transported to [facility] for further care. Pt seen and evaluated in ED and found to have Encephalopathy, Acetominophen Toxicity, Acidosis, and Respiratory Failure. Pt has a positive gag reflex, and is able to protect her airway. Pt placed on supplemental oxygen and mucomyst with improvement in oxygenation. Pt admitted to ICU. Poison Control consulted in ED and initiated on mucomyst as per recommendations. Pulmonary team consulted. Past History Past Medical History: diabetes, hypertension Past Surgical History: cholecystectomy, , hysterectomy, bowel surgery Social history: , smoking Family history: hypertension Medications and Allergies Allergies Allergy/AdvReac Type Severity Reaction Status Date / Time acetaminophen [From Tylenol] Allergy Vomiting Verified 07/11/17 07:50 codeine Allergy Vomiting Verified 07/11/17 07:50 iodine Allergy Vomiting Verified 07/11/17 07:50 shellfish derived Allergy Vomiting Verified 07/11/17 07:50 NSAIDS (Non-Steroidal AdvReac Unknown Verified 07/11/17 07:50 Anti-Inflamma muscle relaxers AdvReac Unknown Uncoded 07/11/17 07:50 Home Medications Medication Instructions Recorded Confirmed Last Taken Type amLODIPine [Norvasc] 10 mg PO DAILY #30 tab 07/11/17 Unknown Rx hydroCHLOROthiazide [HCTZ] 12.5 mg PO QDAY #30 capsule 07/11/17 Unknown Rx HYDROmorphone [Dilaudid] 2 mg PO Q4H PRN #12 tablet 08/21/17 Unknown Rx predniSONE [Deltasone] 20 mg PO DAILY #4 tablet 08/21/17 Unknown Rx Active Meds: Active Medications Cefepime HCl (Maxipime/Ns 2 Gm/100 Ml) 2 gm in 100 mls @ 200 mls/hr IV Q8H JAZMIN; Protocol Acetylcysteine 15,000 mg/ (Dextrose) 275 mls @ 200 mls/hr IV ONCE ONE Stop: 07/07/18 18:52 Acetylcysteine 5,000 mg/ (Dextrose) 525 mls @ 125 mls/hr IV ONCE ONE Stop: 07/07/18 23:11 Acetylcysteine 10,000 mg/ (Dextrose) 1,050 mls @ 62.5 mls/hr IV ONCE ONE Stop: 07/08/18 16:47 Review of Systems ROS unobtainable: due to mental status Exam - Constitutional Vitals: Temp Pulse Resp BP Pulse Ox 99 H 10 L 145/113 100 07/07/18 16:48 07/07/18 16:31 07/07/18 16:31 07/07/18 16:31 General appearance: Present: mild distress, obese - EENT Eyes: Present: miosis ENT: hearing intact, clear oral mucosa - Neck Neck: Present: supple, normal ROM - Respiratory Respiratory effort: labored Respiratory: bilateral: diminished, rhonchi - Cardiovascular Heart Sounds: Present: S1 & S2. Absent: rub, click - Extremities Extremities: pulses symmetrical, No edema - Abdominal General gastrointestinal: Present: soft, non-tender, non-distended, normal bowel sounds Female genitourinary: Present: normal - Integumentary Integumentary: Present: clear, dry - Musculoskeletal Musculoskeletal: generalized weakness - Psychiatric Psychiatric: no appropriate mood/affect, no intact judgment & insight, no memory intact - Neurologic Neurologic: CNII-XII intact, no focal deficits, moves all extremities, no gait normal Results - Labs CBC & Chem 7: 07/08/18 03:10 07/08/18 03:10 Labs: Abnormal lab results 07/07/18 07/07/18 07/07/18 Range/Units 14:17 14:48 14:48 WBC 3.6 L (4.5-11.0) K/mm3 Hgb 9.7 L (10.1-14.3) gm/dl MCV 77 L (79-97) fl MCH 24 L (28-32) pg RDW 18.2 H (13.2-15.2) % Lymph % (Auto) 9.6 L (13.4-35.0) % Lymph # 0.3 L (1.2-5.4) K/mm3 Seg Neutrophils % 85.9 H (40.0-70.0) % POC ABG pH (7.35-7.45) POC ABG pCO2 (35-45) Carbon Dioxide 17 L (22-30) mmol/L Glucose 234 H (65-100) mg/dL Lactic Acid (0.7-2.0) mmol/L ALT 73 H (7-56) units/L Alkaline Phosphatase 203 H (35-129) units/L Ur Specific [place] 1.032 H (1.003-1.030) Salicylates (2.8-20.0) mg/dL Acetaminophen (10.0-30.0) ug/mL 07/07/18 07/07/18 07/07/18 Range/Units 14:48 14:48 14:48 WBC (4.5-11.0) K/mm3 Hgb (10.1-14.3) gm/dl MCV (79-97) fl MCH (28-32) pg RDW (13.2-15.2) % Lymph % (Auto) (13.4-35.0) % Lymph # (1.2-5.4) K/mm3 Seg Neutrophils % (40.0-70.0) % POC ABG pH (7.35-7.45) POC ABG pCO2 (35-45) Carbon Dioxide (22-30) mmol/L Glucose (65-100) mg/dL Lactic Acid 4.60 H* (0.7-2.0) mmol/L ALT (7-56) units/L Alkaline Phosphatase (35-129) units/L Ur Specific [place] (1.003-1.030) Salicylates < 0.3 L (2.8-20.0) mg/dL Acetaminophen 156.9 H (10.0-30.0) ug/mL 07/07/18 Range/Units 15:02 WBC (4.5-11.0) K/mm3 Hgb (10.1-14.3) gm/dl MCV (79-97) fl MCH (28-32) pg RDW (13.2-15.2) % Lymph % (Auto) (13.4-35.0) % Lymph # (1.2-5.4) K/mm3 Seg Neutrophils % (40.0-70.0) % POC ABG pH 7.334 L (7.35-7.45) POC ABG pCO2 28.5 L (35-45) Carbon Dioxide (22-30) mmol/L Glucose (65-100) mg/dL Lactic Acid (0.7-2.0) mmol/L ALT (7-56) units/L Alkaline Phosphatase (35-129) units/L Ur Specific [place] (1.003-1.030) Salicylates (2.8-20.0) mg/dL Acetaminophen (10.0-30.0) ug/mL Assessment and Plan - Patient Problems (1) Respiratory failure Current Visit: Yes Status: Acute Qualifiers: Chronicity: acute Respiratory failure complication: hypoxia Qualified Code(s): J96.01 - Acute respiratory failure with hypoxia Plan to address problem: Supplemental oxygen, nebulizer therapy, pulse oximetry, NIPPV as clinically indicated, pulmonary toilet The high probability of a clinically significant, sudden or life threatening deterioration of the [cardiac, renal, pulmonary, neuro] system(s) required my full and direct attention, intervention and personal management. The aggregate critical care time was [65] minutes. This time is in addition to time spent performing reported procedures but includes the following: [x] Data Review and interpretation [x] Patient assessment and monitoring of vital signs [x] Documentation [x] Medication orders and management (2) Acidosis Current Visit: Yes Status: Acute (3) Obesity hypoventilation syndrome Current Visit: Yes Status: Acute Plan to address problem: Supplemental oxygen, nebulizer therapy, NIPPV as clinically indicated, increased physical activity at discharge (4) Acetaminophen overdose Current Visit: Yes Status: Acute Qualifiers: Encounter type: initial encounter Plan to address problem: Poison control consulted in ED, initiate mucomyst therapy (5) Acute encephalopathy Current Visit: Yes Status: Acute Plan to address problem: CT Head, neuro check, seizure precautions, aspiration precautions, treat acetaminophen toxicity, (6) DVT prophylaxis Current Visit: Yes Status: Acute Plan to address problem: SCD to BLE while in bed
[2018-07-07 17:11] LABS: INR 1.02 (0.87-1.13)
[2018-07-07] MEDS: MAXIPIME/NS 2 GM/100 ML 2 GM/100 ML BAG IV SCH (17:29)
[2018-07-07] MEDS ORDERED: D5W IV ONE ×2 (17:30→19:00)
[2018-07-07] MEDS ORDERED: ACETADOTE IV ONE ×2 (17:30→19:00)
--- NOTE | 2018-07-07 17:42 | Cat Scan Report ---
FINAL REPORT EXAM: CT HEAD/BRAIN WO CON HISTORY: Altered Mental Status COMPARISON: MRI of the brain performed on 07/11/2017 TECHNIQUE: Multiple contiguous axial images were obtained through the head without administration of IV contrast. FINDINGS: There is no parenchymal hemorrhage or extra-axial fluid collection. There is no mass or mass effect. There is no acute territorial infarct. The ventricles are midline and are not enlarged. The subarachn oid spaces and basilar cisterns are clear. There is no skull fracture. The paranasal sinuses and mast oid air cells are clear. IMPRESSION: No acute intracranial abnormality.
[2018-07-07] MEDS ORDERED: SODIUM CHLORIDE FLUSH SYRINGE 10 ML IV PRN (18:03)
[2018-07-07] MEDS ORDERED: ARTIFICIAL TEARS OPHTH OINT OU PRN (22:56)
[2018-07-07] MEDS ORDERED: VERSED IV PRN (22:56)
[2018-07-07] MEDS ORDERED: VASELINE LIP THERAPY TP PRN (22:56)
--- NOTE | 2018-07-07 22:58 | Event Note ---
Patient with sonorous respiration, no response to sternal rub or Narcan which was given earlier in the emergency room She requires frequent suctioning, will intubate for airway protection
[2018-07-07] MEDS ORDERED: MIDAZOLAM 100 MG in NACL 0.9% 80 ML IV SCH (23:00)
--- NOTE | 2018-07-07 23:06 | Event Note ---
Date: 07/07/18 I was asked by Dr. Stearns, hospitalist, to intubate this patient. Patient is currently an ER hold, admitted for overdose. Patient has sonorous respirations, difficult to arouse. There is concern for her protection of her airway. So, patient given 30 mg of etomidate and 150 mg of succinylcholine. Patient intubated on first attempt with a Mac 4 and 7.5 ET tube. Positive color change noted, condensation present in tube, lung sounds auscultated. No complications. CXR ordered for tube placement.
--- NOTE | 2018-07-07 23:53 | XRay Report ---
FINAL REPORT PROCEDURE: XR CHEST 1V AP TECHNIQUE: Chest radiograph anteroposterior view. CPT 11206 HISTORY: ETT placement COMPARISON: No prior studies are available for comparison. FINDINGS: Heart: Normal. Mediastinum/Vessels: Normal. Lungs/Pleural space: Lungs are expanded. There are no infiltrates, effusions or pneumothoraces per. Bony thorax: No acute osseous abnormality. Life support devices: Endotracheal tube is in the proximal trachea.. IMPRESSION: The heart size is normal.. Lungs are expanded. There are no infiltrates, effusions or pneumothoraces per. Endotracheal tube is in the proximal trachea..
[2018-07-08 03:30] LABS: Basophils % (Auto) 0.1 % (0.0-1.8); Hematocrit 29.7 % (30.3-42.9); Hemoglobin 9.4 gm/dl (10.1-14.3); Lymphocytes # (Auto) 0.5 K/mm3 (1.2-5.4); Lymphocytes % (Auto) 9.5 % (13.4-35.0); Mean Corpuscular HGB Conc 32 % (30-34); Mean Corpuscular Volume 77 fl (79-97); Monocytes # (Auto) 0.4 K/mm3 (0.0-0.8); Monocytes % (Auto) 8.1 % (0.0-7.3); Platelet Count 190 K/mm3 (140-440); Red Blood Count 3.88 M/mm3 (3.65-5.03); Red Cell Distribution Width 18.6 % (13.2-15.2)
[2018-07-08 03:49] LABS: BUN/Creatinine Ratio 27; Blood Urea Nitrogen 16 mg/dL (7-17); Calcium 7.7 mg/dL (8.4-10.2); Hemolysis Index 9
[2018-07-08] MEDS: MAXIPIME/NS 2 GM/100 ML 2 GM/100 ML BAG IV SCH ×3 (06:06→18:08)
--- NOTE | 2018-07-08 11:28 | Progress Note ---
Assessment and Plan Assessment and plan: unresponsive History of present illness: 47 YO Female with HTN, DM, MO presents to ED for evaluation. Pt is lethargic and is unable to provide detailed history. Pt history taken from ED staff, EMS, and medical record. Pt found down and unresponsive by a family member. EMS notified, and upon arrival the patient was found to be unresponsive and was treated with Naloxone and transported to [facility] for further care. Pt seen and evaluated in ED and found to have Encephalopathy, Acetominophen Toxicity, Acidosis, and Respiratory Failure. Past History Past Medical History: diabetes, hypertension Diagnosis Suicidal attempt Respiratory failure on MV <96 hours Lactic acidosis Tylenol overdose acute toxic encephalopathy Major depression Plan -Per her daughter she's had multiple suicidal attempts Extubated 07/08 Patient continues to be severely agitated, Haldol when necessary agitation, mental health consult pending, continue 1013 LA resolved continue IVF NAC per poison control recs CCT 33 minutes History Interval history: She was extubated earlier today She became agitated and was yelling and screaming and bring all her extremities around. She was agitated by SCD machine. She is delirious Review of systems Constitutional: No fevers, no malaise, no joint pains CVS: No chest pain, no orthopnea, no dyspnea on exertion, no pedal edema GI: No abdominal pain, no diarrhea, no vomiting, no constipation Respiratory: No shortness of breath, no wheezing, no coughing Hospitalist Physical - Physical exam Narrative exam: General.: Appears well, no distress, nontoxic HEENT: Moist mucous membranes, extraocular muscles intact, no lymphadenopathy Neck: supple Cardiac: S1-S2 heard Lungs: clear to auscultation bilaterally Abdomen: soft , nontender, nondistended, bowel sounds positive Extremities: no edema clubbing or cyanosis Skin: no rash or lesions Neurologic: Moves all extremities, screaming Psych: Agitated, confused - Constitutional Vitals: Temp Pulse Resp BP Pulse Ox 99.1 F 93 H 19 132/73 99 07/08/18 08:00 07/08/18 07:36 07/08/18 08:00 07/08/18 07:36 07/08/18 08:00 General appearance: Present: mild distress, obese Results - Labs CBC & Chem 7: 07/08/18 03:10 07/08/18 03:10 Labs: Laboratory Last Values WBC 5.4 K/mm3 (4.5-11.0) 07/08/18 03:10 RBC 3.88 M/mm3 (3.65-5.03) 07/08/18 03:10 Hgb 9.4 gm/dl (10.1-14.3) L 07/08/18 03:10 Hct 29.7 % (30.3-42.9) L 07/08/18 03:10 MCV 77 fl (79-97) L 07/08/18 03:10 MCH 24 pg (28-32) L 07/08/18 03:10 MCHC 32 % (30-34) 07/08/18 03:10 RDW 18.6 % (13.2-15.2) H 07/08/18 03:10 Plt Count 190 K/mm3 (140-440) 07/08/18 03:10 Lymph % (Auto) 9.5 % (13.4-35.0) L 07/08/18 03:10 [place] % (Auto) 8.1 % (0.0-7.3) H 07/08/18 03:10 Eos % (Auto) 0.0 % (0.0-4.3) 07/08/18 03:10 Baso % (Auto) 0.1 % (0.0-1.8) 07/08/18 03:10 Lymph # 0.5 K/mm3 (1.2-5.4) L 07/08/18 03:10 [place] # 0.4 K/mm3 (0.0-0.8) 07/08/18 03:10 Eos # 0.0 K/mm3 (0.0-0.4) 07/08/18 03:10 Baso # 0.0 K/mm3 (0.0-0.1) 07/08/18 03:10 Seg Neutrophils % 82.3 % (40.0-70.0) H 07/08/18 03:10 Seg Neutrophils # 4.4 K/mm3 (1.8-7.7) 07/08/18 03:10 PT 14.0 Sec. (12.2-14.9) 07/07/18 16:39 INR 1.02 (0.87-1.13) 07/07/18 16:39 POC ABG pH 7.356 (7.35-7.45) 07/08/18 06:03 POC ABG pCO2 29.9 (35-45) L 07/08/18 06:03 POC ABG pO2 166 (80-105) H 07/08/18 06:03 POC ABG HCO3 16.7 07/08/18 06:03 POC ABG Total CO2 18 07/08/18 06:03 POC ABG O2 Sat 99 07/08/18 06:03 POC ABG Base Excess -9 07/08/18 06:03 FiO2 40 % 07/08/18 06:03 Sodium 139 mmol/L (137-145) 07/08/18 03:10 Potassium 4.3 mmol/L (3.6-5.0) 07/08/18 03:10 Chloride 107.4 mmol/L (98-107) H 07/08/18 03:10 Carbon Dioxide 14 mmol/L (22-30) L 07/08/18 03:10 Anion Gap 22 mmol/L 07/08/18 03:10 BUN 16 mg/dL (7-17) 07/08/18 03:10 Creatinine 0.6 mg/dL (0.7-1.2) L 07/08/18 03:10 Estimated GFR > 60 ml/min 07/08/18 03:10 BUN/Creatinine Ratio 27 % 07/08/18 03:10 Glucose 151 mg/dL (65-100) H 07/08/18 03:10 Lactic Acid 1.30 mmol/L (0.7-2.0) 07/08/18 03:40 Calcium 7.7 mg/dL (8.4-10.2) L 07/08/18 03:10 Total Bilirubin 0.20 mg/dL (0.1-1.2) 07/07/18 14:48 AST 26 units/L (5-40) 07/07/18 14:48 ALT 73 units/L (7-56) H 07/07/18 14:48 Alkaline Phosphatase 203 units/L (35-129) H 07/07/18 14:48 Ammonia 34.0 umol/L (25-60) 07/07/18 14:48 Total Creatine Kinase 105 units/L (30-135) 07/07/18 16:37 Troponin T < 0.010 ng/mL (0.00-0.029) 07/07/18 14:48 Total Protein 7.3 g/dL (6.3-8.2) 07/07/18 14:48 Albumin 4.0 g/dL (3.9-5) 07/07/18 14:48 Albumin/Globulin Ratio 1.2 % 07/07/18 14:48 TSH 1.310 mlU/mL (0.270-4.200) 07/07/18 14:48 Urine Color Yellow (Yellow) 07/07/18 14:17 Urine Turbidity Slightly-cloudy (Clear) 07/07/18 14:17 Urine pH 5.0 (5.0-7.0) 07/07/18 14:17 Ur Specific [place] 1.032 (1.003-1.030) H 07/07/18 14:17 Urine Protein <15 mg/dl mg/dL (Negative) 07/07/18 14:17 Urine Glucose (UA) Neg mg/dL (Negative) 07/07/18 14:17 Urine Ketones Neg mg/dL (Negative) 07/07/18 14:17 Urine Blood Neg (Negative) 07/07/18 14:17 Urine Nitrite Neg (Negative) 07/07/18 14:17 Urine Bilirubin Neg (Negative) 07/07/18 14:17 Urine Urobilinogen < 2.0 mg/dL (<2.0) 07/07/18 14:17 Ur Leukocyte Esterase Neg (Negative) 07/07/18 14:17 Urine WBC (Auto) 5.0 /HPF (0.0-6.0) 07/07/18 14:17 Urine RBC (Auto) 1.0 /HPF (0.0-6.0) 07/07/18 14:17 Urine Bacteria (Auto) 1+ /HPF (Negative) 07/07/18 14:17 Urine Mucus Few /HPF 07/07/18 14:17 Urine HCG, Qual Negative (Negative) 07/07/18 14:17 Salicylates < 0.3 mg/dL (2.8-20.0) L 07/07/18 14:48 Urine Opiates Screen Presumptive negative 07/07/18 14:17 Urine Methadone Screen Presumptive negative 07/07/18 14:17 Acetaminophen 156.9 ug/mL (10.0-30.0) H 07/07/18 14:48 Ur Barbiturates Screen Presumptive negative 07/07/18 14:17 Ur Phencyclidine Scrn Presumptive negative 07/07/18 14:17 Ur Amphetamines Screen Presumptive negative 07/07/18 14:17 U Benzodiazepines Scrn Presumptive negative 07/07/18 14:17 Urine Cocaine Screen Presumptive negative 07/07/18 14:17 U Marijuana (THC) Screen Presumptive negative 07/07/18 14:17 Drugs of Abuse Note Disclamer 07/07/18 14:17 Plasma/Serum Alcohol < 0.01 % (0-0.07) 07/07/18 14:48
--- NOTE | 2018-07-08 12:51 | Consultation ---
History of Present Illness Consult date: 07/08/18 Requesting physician: DES LEVINE Reason for consult: other (Inability to protect airway) History of present illness: 47 y/o female, found down by family, unresponsive but per EMS responded some once narcan administered. Apparently in the ED, patient become more sleep and Dr. Angelia Stearns felt that the patient could not protect their airway and underwent elective intubation. They were then placed on versed drip for sedation. Not exactly sure why this was done. ABG reveals metabolic acidosis but no hypercapnea or hypoxemia. No family present at bedside. Past History Past Medical History: diabetes, hypertension Past Surgical History: cholecystectomy, , hysterectomy, bowel surgery Social history: , smoking Family history: hypertension Medications and Allergies Allergies Allergy/AdvReac Type Severity Reaction Status Date / Time acetaminophen [From Tylenol] Allergy Vomiting Verified 07/11/17 07:50 codeine Allergy Vomiting Verified 07/11/17 07:50 iodine Allergy Vomiting Verified 07/11/17 07:50 shellfish derived Allergy Vomiting Verified 07/11/17 07:50 NSAIDS (Non-Steroidal AdvReac Unknown Verified 07/11/17 07:50 Anti-Inflamma muscle relaxers AdvReac Unknown Uncoded 07/11/17 07:50 Home Medications Medication Instructions Recorded Confirmed Last Taken Type amLODIPine [Norvasc] 10 mg PO DAILY #30 tab 07/11/17 Unknown Rx hydroCHLOROthiazide [HCTZ] 12.5 mg PO QDAY #30 capsule 07/11/17 Unknown Rx HYDROmorphone [Dilaudid] 2 mg PO Q4H PRN #12 tablet 08/21/17 Unknown Rx predniSONE [Deltasone] 20 mg PO DAILY #4 tablet 08/21/17 Unknown Rx Active Meds: Active Medications Hydrophilic Ointment (Vaseline Lip Therapy) 1 applic TP Q2HR PRN PRN Reason: Dry Lips Cefepime HCl (Maxipime/Ns 2 Gm/100 Ml) 2 gm in 100 mls @ 200 mls/hr IV Q8H [facility]; Protocol Last Admin: 07/08/18 06:06 Dose: 200 mls/hr Documented by: Acetylcysteine 10,000 mg/ (Dextrose) 1,050 mls @ 62.5 mls/hr IV ONCE ONE Stop: 07/08/18 16:47 Last Admin: 02/28/19 02:19 Dose: 62.5 mls/hr Documented by: Midazolam HCl 100 mg/ Sodium (Chloride) 100 mls @ 2 mls/hr IV TITR JAZMIN; Protocol Last Titration: 07/08/18 07:55 Dose: 0 mg/hr, 0 mls/hr Documented by: Midazolam HCl (Versed) 2 mg IV Q10MIN PRN PRN Reason: Sedation Multi-Ingred Cream/Lotion/Oil/Oint (Artificial Tears Ophth Oint) 1 applic OU Q4HR PRN PRN Reason: Dry Eye(s) Sodium Chloride (Sodium Chloride Flush Syringe 10 Ml) 10 ml IV BID JAZMIN Sodium Chloride (Sodium Chloride Flush Syringe 10 Ml) 10 ml IV PRN PRN PRN Reason: LINE FLUSH Review of Systems ROS unobtainable: due to endotracheal tube Physical Examination Vital signs: Vital Signs Pulse Resp BP Pulse Ox 66 13 117/39 100 07/07/18 13:59 07/07/18 13:59 07/07/18 13:59 07/07/18 13:59 General appearance: no acute distress, asleep, other (obese) Eyes: non-icteric ENT: other (orally intubated and sedated) Neck: supple Ascultation: Bilateral: clear Results - Laboratory Findings CBC and BMP: 07/08/18 03:10 07/08/18 03:10 ABG POC ABG pH 7.356 (7.35-7.45) 07/08/18 06:03 POC ABG pCO2 29.9 (35-45) L 07/08/18 06:03 POC ABG pO2 166 (80-105) H 07/08/18 06:03 POC ABG HCO3 16.7 07/08/18 06:03 POC ABG Total CO2 18 07/08/18 06:03 POC ABG O2 Sat 99 07/08/18 06:03 PT/INR, D-dimer PT 14.0 Sec. (12.2-14.9) 07/07/18 16:39 INR 1.02 (0.87-1.13) 07/07/18 16:39 Abnormal lab findings: Abnormal Labs 07/07/18 07/07/18 07/07/18 14:17 14:48 14:48 WBC 3.6 L Hgb 9.7 L Hct MCV 77 L MCH 24 L RDW 18.2 H Lymph % (Auto) 9.6 L [place] % (Auto) Lymph # 0.3 L Seg Neutrophils % 85.9 H POC ABG pH POC ABG pCO2 POC ABG pO2 Chloride Carbon Dioxide 17 L Creatinine Glucose 234 H Lactic Acid Calcium ALT 73 H Alkaline Phosphatase 203 H Ur Specific [place] 1.032 H Salicylates Acetaminophen 07/07/18 07/07/18 07/07/18 14:48 14:48 14:48 WBC Hgb Hct MCV MCH RDW Lymph % (Auto) [place] % (Auto) Lymph # Seg Neutrophils % POC ABG pH POC ABG pCO2 POC ABG pO2 Chloride Carbon Dioxide Creatinine Glucose Lactic Acid 4.60 H* Calcium ALT Alkaline Phosphatase Ur Specific [place] Salicylates < 0.3 L Acetaminophen 156.9 H 07/07/18 07/07/18 07/07/18 15:02 16:37 19:48 WBC Hgb Hct MCV MCH RDW Lymph % (Auto) [place] % (Auto) Lymph # Seg Neutrophils % POC ABG pH 7.334 L POC ABG pCO2 28.5 L POC ABG pO2 Chloride Carbon Dioxide Creatinine Glucose Lactic Acid 6.10 H* 5.70 H* Calcium ALT Alkaline Phosphatase Ur Specific [place] Salicylates Acetaminophen 07/07/18 07/07/18 07/08/18 20:49 23:14 00:55 WBC Hgb Hct MCV MCH RDW Lymph % (Auto) [place] % (Auto) Lymph # Seg Neutrophils % POC ABG pH POC ABG pCO2 POC ABG pO2 Chloride Carbon Dioxide Creatinine Glucose Lactic Acid 4.20 H* 3.30 H* 2.50 H* Calcium ALT Alkaline Phosphatase Ur Specific [place] Salicylates Acetaminophen 07/08/18 07/08/18 07/08/18 01:08 03:10 03:10 WBC Hgb 9.4 L Hct 29.7 L MCV 77 L MCH 24 L RDW 18.6 H Lymph % (Auto) 9.5 L [place] % (Auto) 8.1 H Lymph # 0.5 L Seg Neutrophils % 82.3 H POC ABG pH 7.267 L POC ABG pCO2 POC ABG pO2 551 H Chloride 107.4 H Carbon Dioxide 14 L Creatinine 0.6 L Glucose 151 H Lactic Acid Calcium 7.7 L ALT Alkaline Phosphatase Ur Specific [place] Salicylates Acetaminophen 07/08/18 06:03 WBC Hgb Hct MCV MCH RDW Lymph % (Auto) [place] % (Auto) Lymph # Seg Neutrophils % POC ABG pH POC ABG pCO2 29.9 L POC ABG pO2 166 H Chloride Carbon Dioxide Creatinine Glucose Lactic Acid Calcium ALT Alkaline Phosphatase Ur Specific [place] Salicylates Acetaminophen - Diagnostic Findings Chest x-ray: image reviewed (cardiomegaly with clear lung rees) Assessment and Plan 47 y/o female with altered mental status and negative UDS 1. Once versed has worn off, will extubate 2. May need MRI with normal head CT 3. May need psych consult as she is being treated for tylenol overdose and it is not know if this was intentional 4. PT consult
--- NOTE | 2018-07-08 12:58 | Event Note ---
Date: 07/08/18 Patient self extubated. Tolerating well
[2018-07-08] MEDS ORDERED: HALDOL IM ONE (14:20)
[2018-07-08] MEDS ORDERED: QUELICIN ONE (14:20)
[2018-07-08] MEDS ORDERED: AMIDATE IV ONE (14:20)
[2018-07-08] MEDS: SODIUM CHLORIDE FLUSH SYRINGE 10 ML IV SCH ×2 (14:46→22:19)
[2018-07-08] MEDS ORDERED: HALDOL IM PRN (15:35)
[2018-07-08 16:00] LABS: INR 1.05 (0.87-1.13)
[2018-07-08 16:03] LABS: Alanine Aminotransferase 150 units/L (7-56); Albumin 3.3 g/dL (3.9-5)
[2018-07-08 16:15] LABS: Bilirubin,Direct < 0.2 mg/dL (0-0.2)
[2018-07-08] MEDS ORDERED: D5W IV ONE ×2 (17:00)
[2018-07-08] MEDS ORDERED: ACETADOTE IV ONE ×2 (17:00)
[2018-07-09] MEDS: MAXIPIME/NS 2 GM/100 ML 2 GM/100 ML BAG IV SCH ×3 (02:30→18:55)
[2018-07-09 11:12] LABS: BUN/Creatinine Ratio 6; Blood Urea Nitrogen 3 mg/dL (7-17); Calcium 8.7 mg/dL (8.4-10.2); Hemolysis Index 47
--- NOTE | 2018-07-09 12:05 | Progress Note ---
Assessment and Plan Assessment and plan: Assessment and plan Tylenol Overdose /Suicide Attempt maintain 1013 and constant observer suicide precautions at all times no tylenol at this time NAC per poison control MDD severe per psych team Morbid Obesity counseled Acute transaminitis 2/2 Tylenol overdose monitor daily Acute Hypoxic resp failure, resolved pulm on board Anemia of chronic disease monitor closely Further pt mgt per hospital course Chronic pain syndrome outpt care with a pain specialist, Full code status Disposition Plan: per hospital course, monitor LFTs, f/u psych reccs Total Time Spent with Patient (Minutes): 30 mins History Interval history: HPI on 07/07/18 47 YO Female with HTN, DM, MO presents to ED for evaluation. Pt is lethargic and is unable to provide detailed history. Pt history taken from ED staff, EMS, and medical record. Pt found down and unresponsive by a family member. EMS notified, and upon arrival the patient was found to be unresponsive and was treated with Naloxone and transported to [facility] for further care. Pt seen and evaluated in ED and found to have Encephalopathy, Acetominophen Toxicity, Acidosis, and Respiratory Failure. Pt has a positive gag reflex, and is able to protect her airway. Pt placed on supplemental oxygen and mucomyst with improvement in oxygenation. Pt admitted to ICU. Poison Control consulted in ED and initiated on mucomyst as per recommendations. Pulmonary team consulted. Brief Hospital course: Pt was admitted to the hospital medicine service to ICU, s/p self extubation. Transferred to the floor with 1:1 sitter and remains on 1013. Pt was seen in consultation by the psych team. Tylenol level is less than 5. LFT remain elevated but slightly improved. Subjective: Pt seen and exam. Wondered if she could get something for her chronic pain. Admitted to several stresses and family issues which led to this Ssuicide attempt by overdosing on Tylenol. Inputs and reccs of the specialists appreciated. Hospitalist Physical - Constitutional Vitals: Temp Pulse Resp BP Pulse Ox 99.5 F 101 H 18 134/77 96 07/09/18 11:53 07/09/18 11:53 07/09/18 11:53 07/09/18 11:53 07/09/18 11:53 General appearance: Present: no acute distress, mild distress, well-nourished, obese - EENT Eyes: Present: PERRL, EOM intact ENT: hearing intact, clear oral mucosa - Neck Neck: Present: supple, normal ROM - Respiratory Respiratory: bilateral: diminished, rhonchi, negative: rales, wheezing - Cardiovascular Rhythm: regular Heart Sounds: Present: S1 & S2 - Extremities Extremities: no ischemia, pulses intact, pulses symmetrical, normal temperature, normal color - Abdominal General gastrointestinal: soft, non-tender, non-distended, normal bowel sounds, other (obese) - Integumentary Integumentary: Present: clear, warm, dry - Psychiatric Psychiatric: memory intact, cooperative, depressed - Neurologic Neurologic: CNII-XII intact, moves all extremities - Allied Health Allied health notes reviewed: nursing, social work, case management Results - Labs CBC & Chem 7: 07/08/18 03:10 07/09/18 09:42 Labs: Laboratory Last Values WBC 5.4 K/mm3 (4.5-11.0) 07/08/18 03:10 RBC 3.88 M/mm3 (3.65-5.03) 07/08/18 03:10 Hgb 9.4 gm/dl (10.1-14.3) L 07/08/18 03:10 Hct 29.7 % (30.3-42.9) L 07/08/18 03:10 MCV 77 fl (79-97) L 07/08/18 03:10 MCH 24 pg (28-32) L 07/08/18 03:10 MCHC 32 % (30-34) 07/08/18 03:10 RDW 18.6 % (13.2-15.2) H 07/08/18 03:10 Plt Count 190 K/mm3 (140-440) 07/08/18 03:10 Lymph % (Auto) 9.5 % (13.4-35.0) L 07/08/18 03:10 [place] % (Auto) 8.1 % (0.0-7.3) H 07/08/18 03:10 Eos % (Auto) 0.0 % (0.0-4.3) 07/08/18 03:10 Baso % (Auto) 0.1 % (0.0-1.8) 07/08/18 03:10 Lymph # 0.5 K/mm3 (1.2-5.4) L 07/08/18 03:10 [place] # 0.4 K/mm3 (0.0-0.8) 07/08/18 03:10 Eos # 0.0 K/mm3 (0.0-0.4) 07/08/18 03:10 Baso # 0.0 K/mm3 (0.0-0.1) 07/08/18 03:10 Seg Neutrophils % 82.3 % (40.0-70.0) H 07/08/18 03:10 Seg Neutrophils # 4.4 K/mm3 (1.8-7.7) 07/08/18 03:10 PT 14.4 Sec. (12.2-14.9) 07/08/18 15:26 INR 1.05 (0.87-1.13) 07/08/18 15:26 POC ABG pH 7.356 (7.35-7.45) 07/08/18 06:03 POC ABG pCO2 29.9 (35-45) L 07/08/18 06:03 POC ABG pO2 166 (80-105) H 07/08/18 06:03 POC ABG HCO3 16.7 07/08/18 06:03 POC ABG Total CO2 18 07/08/18 06:03 POC ABG O2 Sat 99 07/08/18 06:03 POC ABG Base Excess -9 07/08/18 06:03 FiO2 40 % 07/08/18 06:03 Sodium 141 mmol/L (137-145) 07/09/18 09:42 Potassium 3.6 mmol/L (3.6-5.0) 07/09/18 09:42 Chloride 104.3 mmol/L (98-107) 07/09/18 09:42 Carbon Dioxide 20 mmol/L (22-30) L 07/09/18 09:42 Anion Gap 20 mmol/L 07/09/18 09:42 BUN 3 mg/dL (7-17) L 07/09/18 09:42 Creatinine 0.5 mg/dL (0.7-1.2) L 07/09/18 09:42 Estimated GFR > 60 ml/min 07/09/18 09:42 BUN/Creatinine Ratio 6 % 07/09/18 09:42 Glucose 203 mg/dL (65-100) H 07/09/18 09:42 POC Glucose 111 (70-105) H 07/09/18 07:44 Lactic Acid 1.30 mmol/L (0.7-2.0) 07/08/18 03:40 Calcium 8.7 mg/dL (8.4-10.2) 07/09/18 09:42 Total Bilirubin 0.40 mg/dL (0.1-1.2) 07/08/18 15:26 Direct Bilirubin < 0.2 mg/dL (0-0.2) 07/08/18 15:26 Indirect Bilirubin 0.2 mg/dL 07/08/18 15:26 AST 105 units/L (5-40) H 07/08/18 15:26 ALT 150 units/L (7-56) H 07/08/18 15:26 Alkaline Phosphatase 171 units/L (35-129) H 07/08/18 15:26 Ammonia 34.0 umol/L (25-60) 07/07/18 14:48 Total Creatine Kinase 105 units/L (30-135) 07/07/18 16:37 Troponin T < 0.010 ng/mL (0.00-0.029) 07/07/18 14:48 Total Protein 6.4 g/dL (6.3-8.2) 07/08/18 15:26 Albumin 3.3 g/dL (3.9-5) L 07/08/18 15:26 Albumin/Globulin Ratio 1.1 % 07/08/18 15:26 TSH 1.310 mlU/mL (0.270-4.200) 07/07/18 14:48 Urine Color Yellow (Yellow) 07/07/18 14:17 Urine Turbidity Slightly-cloudy (Clear) 07/07/18 14:17 Urine pH 5.0 (5.0-7.0) 07/07/18 14:17 Ur Specific [place] 1.032 (1.003-1.030) H 07/07/18 14:17 Urine Protein <15 mg/dl mg/dL (Negative) 07/07/18 14:17 Urine Glucose (UA) Neg mg/dL (Negative) 07/07/18 14:17 Urine Ketones Neg mg/dL (Negative) 07/07/18 14:17 Urine Blood Neg (Negative) 07/07/18 14:17 Urine Nitrite Neg (Negative) 07/07/18 14:17 Urine Bilirubin Neg (Negative) 07/07/18 14:17 Urine Urobilinogen < 2.0 mg/dL (<2.0) 07/07/18 14:17 Ur Leukocyte Esterase Neg (Negative) 07/07/18 14:17 Urine WBC (Auto) 5.0 /HPF (0.0-6.0) 07/07/18 14:17 Urine RBC (Auto) 1.0 /HPF (0.0-6.0) 07/07/18 14:17 Urine Bacteria (Auto) 1+ /HPF (Negative) 07/07/18 14:17 Urine Mucus Few /HPF 07/07/18 14:17 Urine HCG, Qual Negative (Negative) 07/07/18 14:17 Salicylates < 0.3 mg/dL (2.8-20.0) L 07/07/18 14:48 Urine Opiates Screen Presumptive negative 07/07/18 14:17 Urine Methadone Screen Presumptive negative 07/07/18 14:17 Acetaminophen < 5.0 ug/mL (10.0-30.0) L 07/08/18 15:26 Ur Barbiturates Screen Presumptive negative 07/07/18 14:17 Ur Phencyclidine Scrn Presumptive negative 07/07/18 14:17 Ur Amphetamines Screen Presumptive negative 07/07/18 14:17 U Benzodiazepines Scrn Presumptive negative 07/07/18 14:17 Urine Cocaine Screen Presumptive negative 07/07/18 14:17 U Marijuana (THC) Screen Presumptive negative 07/07/18 14:17 Drugs of Abuse Note Disclamer 07/07/18 14:17 Plasma/Serum Alcohol < 0.01 % (0-0.07) 07/07/18 14:48 - Imaging and Cardiology Chest x-ray: report reviewed CT Scan - head: report reviewed Nutrition/Malnutrition Assess - Dietary Evaluation Nutrition/Malnutrition Findings: Nutrition Notes Start: 07/08/18 11:51 Freq: Status: Active Protocol: Document 07/08/18 11:51 CP (Rec: 07/08/18 11:57 CP [id number]) Co-Sign 07/08/18 11:51 LP Nutrition Notes Need for Assessment generated from: MD Order Initial or Follow up Assessment Current Diagnosis Diabetes Hypertension Respiratory Failure Other Pertinent Diagnosis AMS, acute encephalopathy, acetaminophen overdose Current Diet NPO Labs/Tests Cr 0.6 BG 151 Pertinent Medications Reviewed Height 5 ft 4 in Weight 102 kg [place] Body Weight (kg) 54.54 BMI 38.6 Weight Status Morbidly Obese Subjective/Other Information MD consult for NTR intake. Per MD, pt self extubated. Percent of energy/protein needs met: 0%/0% Burn Absent Trauma Absent #1 Nutrition Diagnosis Inadequate oral intake Etiology AMS, drug overdose As Evidenced by Signs and Symptoms NPO status Is patient on ventilator? No Is Patient Ambulatory and/or Out of Bed No REE-([facility]-confined to bed) 1976.192 Kcal/Kg value to use for calculation 15 Approximate Energy Requirements Using 1530 kcal/Kg Calculation Used for Recommendations Kcal/kg Additional Notes Pro: 109g (2g/kg IBW) Fluid: 1mL/kcal Nutrition Intervention Change Diet Order: Awaiting TF consult per MD request. Goal #1 Diet advancement Follow-Up By: 07/09/18 Additional Comments F/U: Diet advancement
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
--- NOTE | 2018-07-09 13:10 | Progress Note ---
Assessment and Plan 47 y/o female with altered mental status and negative UDS 1. Stable pulm status 2. Psych on board 3. Will sign off. Subjective Date of service: 07/09/18 Interval history: Successful transfer out of ICU. Now on room air. Patient has tried suicide attempts prior per daughter history. No pulmonary issues presently. Objective Vital Signs - 12hr 07/09/18 07/09/18 07/09/18 06:08 10:00 11:53 Temperature 98.6 F 99.5 F Pulse Rate 88 101 H Respiratory 20 18 Rate Blood Pressure 162/92 134/77 O2 Sat by Pulse 98 96 96 Oximetry Constitutional: no acute distress, asleep, other (obese) Eyes: non-icteric ENT: other (orally intubated and sedated) Neck: supple Ascultation: Bilateral: clear CBC and BMP: 07/08/18 03:10 07/09/18 09:42 ABG, PT/INR, D-dimer: ABG POC ABG pH 7.356 (7.35-7.45) 07/08/18 06:03 POC ABG pCO2 29.9 (35-45) L 07/08/18 06:03 POC ABG pO2 166 (80-105) H 07/08/18 06:03 POC ABG HCO3 16.7 07/08/18 06:03 POC ABG Total CO2 18 07/08/18 06:03 POC ABG O2 Sat 99 07/08/18 06:03 PT/INR, D-dimer PT 14.4 Sec. (12.2-14.9) 07/08/18 15:26 INR 1.05 (0.87-1.13) 07/08/18 15:26 Abnormal lab findings: Abnormal Labs 07/07/18 07/07/18 07/07/18 14:17 14:48 14:48 WBC 3.6 L Hgb 9.7 L Hct MCV 77 L MCH 24 L RDW 18.2 H Lymph % (Auto) 9.6 L [place] % (Auto) Lymph # 0.3 L Seg Neutrophils % 85.9 H POC ABG pH POC ABG pCO2 POC ABG pO2 Chloride Carbon Dioxide 17 L BUN Creatinine Glucose 234 H POC Glucose Lactic Acid Calcium AST ALT 73 H Alkaline Phosphatase 203 H Albumin Ur Specific [place] 1.032 H Salicylates Acetaminophen 0207/07/18 07/07/18 14:48 14:48 14:48 WBC Hgb Hct MCV MCH RDW Lymph % (Auto) [place] % (Auto) Lymph # Seg Neutrophils % POC ABG pH POC ABG pCO2 POC ABG pO2 Chloride Carbon Dioxide BUN Creatinine Glucose POC Glucose Lactic Acid 4.60 H* Calcium AST ALT Alkaline Phosphatase Albumin Ur Specific [place] Salicylates < 0.3 L Acetaminophen 156.9 H 07/07/18 07/07/18 07/07/18 15:02 16:37 19:48 WBC Hgb Hct MCV MCH RDW Lymph % (Auto) [place] % (Auto) Lymph # Seg Neutrophils % POC ABG pH 7.334 L POC ABG pCO2 28.5 L POC ABG pO2 Chloride Carbon Dioxide BUN Creatinine Glucose POC Glucose Lactic Acid 6.10 H* 5.70 H* Calcium AST ALT Alkaline Phosphatase Albumin Ur Specific [place] Salicylates Acetaminophen 07/07/18 07/07/18 07/08/18 20:49 23:14 00:55 WBC Hgb Hct MCV MCH RDW Lymph % (Auto) [place] % (Auto) Lymph # Seg Neutrophils % POC ABG pH POC ABG pCO2 POC ABG pO2 Chloride Carbon Dioxide BUN Creatinine Glucose POC Glucose Lactic Acid 4.20 H* 3.30 H* 2.50 H* Calcium AST ALT Alkaline Phosphatase Albumin Ur Specific [place] Salicylates Acetaminophen 07/08/18 07/08/18 07/08/18 01:08 03:10 03:10 WBC Hgb 9.4 L Hct 29.7 L MCV 77 L MCH 24 L RDW 18.6 H Lymph % (Auto) 9.5 L [place] % (Auto) 8.1 H Lymph # 0.5 L Seg Neutrophils % 82.3 H POC ABG pH 7.267 L POC ABG pCO2 POC ABG pO2 551 H Chloride 107.4 H Carbon Dioxide 14 L BUN Creatinine 0.6 L Glucose 151 H POC Glucose Lactic Acid Calcium 7.7 L AST ALT Alkaline Phosphatase Albumin Ur Specific [place] Salicylates Acetaminophen 07/08/18 07/08/18 07/08/18 06:03 15:26 15:26 WBC Hgb Hct MCV MCH RDW Lymph % (Auto) [place] % (Auto) Lymph # Seg Neutrophils % POC ABG pH POC ABG pCO2 29.9 L POC ABG pO2 166 H Chloride Carbon Dioxide BUN Creatinine Glucose POC Glucose Lactic Acid Calcium AST 105 H ALT 150 H Alkaline Phosphatase 171 H Albumin 3.3 L Ur Specific [place] Salicylates Acetaminophen < 5.0 L 07/09/18 07/09/18 07/09/18 07:44 09:42 11:42 WBC Hgb Hct MCV MCH RDW Lymph % (Auto) [place] % (Auto) Lymph # Seg Neutrophils % POC ABG pH POC ABG pCO2 POC ABG pO2 Chloride Carbon Dioxide 20 L BUN 3 L Creatinine 0.5 L Glucose 203 H POC Glucose 111 H 118 H Lactic Acid Calcium AST ALT Alkaline Phosphatase Albumin Ur Specific [place] Salicylates Acetaminophen
[2018-07-09 14:48] LABS: Alanine Aminotransferase 113 units/L (7-56)
--- NOTE | 2018-07-09 17:25 | Event Note ---
Cogentin 0.5 mg PO once for EPS ordered for the patient. The patient notified her assigned nurse that her tongue was twitching. The patient was given IM Haldol yesterday.
[2018-07-09] MEDS: SODIUM CHLORIDE FLUSH SYRINGE 10 ML IV SCH ×2 (17:52→21:54)
[2018-07-09] MEDS ORDERED: COGENTIN PO SCH (18:00)
[2018-07-09 19:53] LABS: INR 1.05 (0.87-1.13)
[2018-07-09] MEDS ORDERED: BENADRYL IV ONE (21:18)
[2018-07-09] MEDS: NORVASC PO SCH (21:48)
[2018-07-10] MEDS: MAXIPIME/NS 2 GM/100 ML 2 GM/100 ML BAG IV SCH ×3 (02:35→18:10)
[2018-07-10 03:23] LABS: Alanine Aminotransferase 108 units/L (7-56); Albumin 3.9 g/dL (3.9-5); BUN/Creatinine Ratio 8; Blood Urea Nitrogen 4 mg/dL (7-17); Hemolysis Index 16
[2018-07-10 07:18] LABS: BUN/Creatinine Ratio 6; Blood Urea Nitrogen 3 mg/dL (7-17); Calcium 9.2 mg/dL (8.4-10.2); Hemolysis Index 4
[2018-07-10] MEDS: NORVASC PO SCH (09:43)
[2018-07-10] MEDS: SODIUM CHLORIDE FLUSH SYRINGE 10 ML IV SCH ×2 (09:44→21:32)
[2018-07-10] MEDS: K-DUR PO SCH (10:00)
[2018-07-10] MEDS ORDERED: NACL 0.45% 1000 ML 1,000 ML IV SCH (11:00)
[2018-07-10] MEDS ORDERED: COREG PO SCH (11:00)
--- NOTE | 2018-07-10 11:04 | Progress Note ---
Subjective - Reason for Consult Consult date: 07/10/18 Reason for consult: Psychiatry Follow-up - Chief Complaint Chief complaint: "I have to do better" 47 y.o. who presented to the ER for overdosing on Tylenol pills. Today the patient is calm and cooperative during the assessment. She stated that she would like to take an antidepressant for her depression. She rate her depression 5/10, with 10 being t he worse. She stated that she can not stay sleep, something that's been happening for several weeks. She wanted to apologize for not acknowledging a previous suicide attempt in her past. She stated, "I was embarrassed to talk tell you." She denies SI/Hi's and AVH's. Mental Status Exam - Vital signs Last Vital Signs Temp 99.4 F 07/10/18 05:21 Pulse 89 07/10/18 05:21 Resp 18 07/10/18 05:21 BP 158/92 07/10/18 05:21 Pulse Ox 98 07/10/18 05:21 - Exam Narrative exam: MSE: Appearance: calm, cooperative Behavior: regular eye contact Speech: regular rate and loud tone Mood: "depressed" Affect: flat Thought Process: linear Thought Content: denies SI/HI's and AVH's Motor Activity: sitting up in the bed Cognition: A/O x3 Insight: fair Judgment: fair Assessment and Plan Impression: MDD, Severe Type. Intentional Overdose. Additional Dx: Insomnia. Today the patient is calm and cooperative during the assessment. LF's are elevated. QTc 438. DDx: R/O Bipolar DO Recommendation/Plan: Continue 1013 and start Prozac 20 mg PO daily for de pression and Benadryl 25 mg PO HS for sleep. Discussed possible suicidality/medication induced caridad with the patient reference Prozec. Dispo: The patient will be referred to inpatient psy services once medically clear. Will staff with Dr Payne
[2018-07-10] MEDS: PROzac PO SCH (11:48)
[2018-07-10] MEDS: KCL 10MEQ/100ML 10 MEQ/100 ML BAG IV SCH ×4 (11:53→16:41)
--- NOTE | 2018-07-10 13:36 | Progress Note ---
Assessment and Plan Assessment and plan: Tylenol Overdose 2/2 suicide Attempt -maintain 1013 and constant observer -suicide precautions at all times -for inpt psych facility when medically cleared Hypokalemia -on repletion, will monitor level MDD, severe -psych team following Morbid Obesity with BMI of 37,4 -lifestyle modification recommended Acute transaminitis 2/2 Tylenol overdose -levels improving, will monitor Acute Hypoxic resp failure -s/p extubation Chronic microcytic disease -H/H stable HTN -uncontrolled, coreg started Mild hypernatremia -on IVF, will monitor Disp: pt is not medically cleared for d/c to inpt psych facility History Interval history: Pt has no new complaints Hospitalist Physical - Constitutional Vitals: Temp Pulse Resp BP Pulse Ox 99.4 F 89 18 158/92 98 07/10/18 05:21 07/10/18 05:21 07/10/18 05:21 07/10/18 05:21 07/10/18 05:21 General appearance: Present: no acute distress, obese - EENT Eyes: Present: PERRL, EOM intact ENT: hearing intact, clear oral mucosa - Neck Neck: Present: supple - Respiratory Respiratory effort: normal Respiratory: bilateral: CTA - Cardiovascular Rhythm: regular Heart Sounds: Present: S1 & S2 - Extremities Extremities: No edema - Abdominal General gastrointestinal: soft, non-tender, non-distended, normal bowel sounds - Neurologic Neurologic: CNII-XII intact Results - Labs CBC & Chem 7: 07/08/18 03:10 07/10/18 06:09 Labs: Laboratory Last Values WBC 5.4 K/mm3 (4.5-11.0) 07/08/18 03:10 RBC 3.88 M/mm3 (3.65-5.03) 07/08/18 03:10 Hgb 9.4 gm/dl (10.1-14.3) L 07/08/18 03:10 Hct 29.7 % (30.3-42.9) L 07/08/18 03:10 MCV 77 fl (79-97) L 07/08/18 03:10 MCH 24 pg (28-32) L 07/08/18 03:10 MCHC 32 % (30-34) 07/08/18 03:10 RDW 18.6 % (13.2-15.2) H 07/08/18 03:10 Plt Count 190 K/mm3 (140-440) 07/08/18 03:10 Lymph % (Auto) 9.5 % (13.4-35.0) L 07/08/18 03:10 [place] % (Auto) 8.1 % (0.0-7.3) H 07/08/18 03:10 Eos % (Auto) 0.0 % (0.0-4.3) 07/08/18 03:10 Baso % (Auto) 0.1 % (0.0-1.8) 07/08/18 03:10 Lymph # 0.5 K/mm3 (1.2-5.4) L 07/08/18 03:10 [place] # 0.4 K/mm3 (0.0-0.8) 07/08/18 03:10 Eos # 0.0 K/mm3 (0.0-0.4) 07/08/18 03:10 Baso # 0.0 K/mm3 (0.0-0.1) 07/08/18 03:10 Seg Neutrophils % 82.3 % (40.0-70.0) H 07/08/18 03:10 Seg Neutrophils # 4.4 K/mm3 (1.8-7.7) 07/08/18 03:10 PT 14.3 Sec. (12.2-14.9) 07/09/18 19:10 INR 1.05 (0.87-1.13) 07/09/18 19:10 POC ABG pH 7.356 (7.35-7.45) 07/08/18 06:03 POC ABG pCO2 29.9 (35-45) L 07/08/18 06:03 POC ABG pO2 166 (80-105) H 07/08/18 06:03 POC ABG HCO3 16.7 07/08/18 06:03 POC ABG Total CO2 18 07/08/18 06:03 POC ABG O2 Sat 99 07/08/18 06:03 POC ABG Base Excess -9 07/08/18 06:03 FiO2 40 % 07/08/18 06:03 Sodium 146 mmol/L (137-145) H 07/10/18 06:09 Potassium 3.0 mmol/L (3.6-5.0) L 07/10/18 06:09 Chloride 105.0 mmol/L (98-107) 07/10/18 06:09 Carbon Dioxide 27 mmol/L (22-30) 07/10/18 06:09 Anion Gap 17 mmol/L 07/10/18 06:09 BUN 3 mg/dL (7-17) L 07/10/18 06:09 Creatinine 0.5 mg/dL (0.7-1.2) L 07/10/18 06:09 Estimated GFR > 60 ml/min 07/10/18 06:09 BUN/Creatinine Ratio 6 % 07/10/18 06:09 Glucose 99 mg/dL (65-100) 07/10/18 06:09 POC Glucose 114 (70-105) H 07/10/18 11:32 Lactic Acid 1.30 mmol/L (0.7-2.0) 07/08/18 03:40 Calcium 9.2 mg/dL (8.4-10.2) 07/10/18 06:09 Magnesium 2.00 mg/dL (1.7-2.3) 07/10/18 12:21 Total Bilirubin 0.30 mg/dL (0.1-1.2) 07/10/18 00:31 Direct Bilirubin < 0.2 mg/dL (0-0.2) 07/08/18 15:26 Indirect Bilirubin 0.2 mg/dL 07/08/18 15:26 AST 47 units/L (5-40) H 07/10/18 00:31 ALT 108 units/L (7-56) H 07/10/18 00:31 Alkaline Phosphatase 190 units/L (35-129) H 07/10/18 00:31 Ammonia 34.0 umol/L (25-60) 07/07/18 14:48 Total Creatine Kinase 105 units/L (30-135) 07/07/18 16:37 Troponin T < 0.010 ng/mL (0.00-0.029) 07/07/18 14:48 Total Protein 7.3 g/dL (6.3-8.2) 07/10/18 00:31 Albumin 3.9 g/dL (3.9-5) 07/10/18 00:31 Albumin/Globulin Ratio 1.1 % 07/10/18 00:31 TSH 1.310 mlU/mL (0.270-4.200) 07/07/18 14:48 Urine Color Yellow (Yellow) 07/07/18 14:17 Urine Turbidity Slightly-cloudy (Clear) 07/07/18 14:17 Urine pH 5.0 (5.0-7.0) 07/07/18 14:17 Ur Specific [place] 1.032 (1.003-1.030) H 07/07/18 14:17 Urine Protein <15 mg/dl mg/dL (Negative) 07/07/18 14:17 Urine Glucose (UA) Neg mg/dL (Negative) 07/07/18 14:17 Urine Ketones Neg mg/dL (Negative) 07/07/18 14:17 Urine Blood Neg (Negative) 07/07/18 14:17 Urine Nitrite Neg (Negative) 07/07/18 14:17 Urine Bilirubin Neg (Negative) 07/07/18 14:17 Urine Urobilinogen < 2.0 mg/dL (<2.0) 07/07/18 14:17 Ur Leukocyte Esterase Neg (Negative) 07/07/18 14:17 Urine WBC (Auto) 5.0 /HPF (0.0-6.0) 07/07/18 14:17 Urine RBC (Auto) 1.0 /HPF (0.0-6.0) 07/07/18 14:17 Urine Bacteria (Auto) 1+ /HPF (Negative) 07/07/18 14:17 Urine Mucus Few /HPF 07/07/18 14:17 Urine HCG, Qual Negative (Negative) 07/07/18 14:17 Salicylates < 0.3 mg/dL (2.8-20.0) L 07/07/18 14:48 Urine Opiates Screen Presumptive negative 07/07/18 14:17 Urine Methadone Screen Presumptive negative 07/07/18 14:17 Acetaminophen < 5.0 ug/mL (10.0-30.0) L 07/09/18 19:10 Ur Barbiturates Screen Presumptive negative 07/07/18 14:17 Ur Phencyclidine Scrn Presumptive negative 07/07/18 14:17 Ur Amphetamines Screen Presumptive negative 07/07/18 14:17 U Benzodiazepines Scrn Presumptive negative 07/07/18 14:17 Urine Cocaine Screen Presumptive negative 07/07/18 14:17 U Marijuana (THC) Screen Presumptive negative 07/07/18 14:17 Drugs of Abuse Note Disclamer 07/07/18 14:17 Plasma/Serum Alcohol < 0.01 % (0-0.07) 07/07/18 14:48 Nutrition/Malnutrition Assess - Dietary Evaluation Nutrition/Malnutrition Findings: Nutrition Notes Start: 07/08/18 11:51 Freq: Status: Active Protocol: Document 07/09/18 13:54 SA (Rec: 07/09/18 14:02 SA [id number]) Co-Sign 07/09/18 13:54 LP Nutrition Notes Initial or Follow up Reassessment Current Diagnosis Diabetes Hypertension Respiratory Failure Other Pertinent Diagnosis AMS, acute encephalopathy, acetaminophen overdose Current Diet Regular Labs/Tests Glu: 203 Pertinent Medications Reviewed Height 5 ft 4 in Weight 102 kg [place] Body Weight (kg) 54.54 BMI 38.6 Weight Status Morbidly Obese Subjective/Other Information Patient states appetite is fine. Pt reports eating 50-60% of meals. Pt denies swallowing/chewing difficulty and N/V/D. Pt interested in ONS. Percent of energy/protein needs met: 76%/37% Burn Absent Trauma Absent #1 Nutrition Diagnosis Inadequate oral intake Diagnosis Progress(for reassessment Continues documentation) Is patient on ventilator? No Is Patient Ambulatory and/or Out of Bed Yes REE-([place]-St. Jeor-ambulatory/OOB) [ 2138.500 [id number]] Kcal/Kg value to use for calculation 15 Approximate Energy Requirements Using 1530 kcal/Kg Calculation Used for Recommendations Kcal/kg Additional Notes Pro: 81- 102 g (0.8-1 g/kg) Fluid: 1mL/kcal Nutrition Intervention Change Diet Order: Cardiac/ Consistent CHO Add Supplement/Snack (indicate name/kcal Ensure High Protein one daily /protein ) Provides kCal: 160 Provides Protein (gm) 16 Goal #1 Meet at least 75% of kcal and pro needs via PO and ONS intake Anticipated Discharge Needs: Cardiac/ Consistent CHO Follow-Up By: 07/13/18 Additional Comments F/U: PO intake and ONS intake
[2018-07-10] MEDS: BENADRYL PO SCH (21:31)
[2018-07-10] MEDS: COREG PO SCH (21:35)
[2018-07-11] MEDS ORDERED: IMODIUM PO ONE (05:42)
[2018-07-11 07:08] LABS: Alanine Aminotransferase 69 units/L (7-56); Albumin 4.1 g/dL (3.9-5); BUN/Creatinine Ratio 16; Blood Urea Nitrogen 8 mg/dL (7-17); Calcium 8.8 mg/dL (8.4-10.2); Hemolysis Index 1
[2018-07-11] MEDS: NORVASC PO SCH (10:06)
[2018-07-11] MEDS: PROzac PO SCH (10:06)
[2018-07-11] MEDS: K-DUR PO SCH (10:06)
[2018-07-11] MEDS: SODIUM CHLORIDE FLUSH SYRINGE 10 ML IV SCH ×2 (10:06→21:51)
[2018-07-11] MEDS: COREG PO SCH ×2 (10:06→21:50)
[2018-07-11] MEDS: KCL 10MEQ/100ML 10 MEQ/100 ML BAG IV SCH ×3 (11:28→17:48)
--- NOTE | 2018-07-11 13:17 | Progress Note ---
Assessment and Plan Assessment and plan: Tylenol Overdose 2/2 suicide Attempt -maintain 1013 and constant observer -suicide precautions at all times -for inpt psych facility when medically cleared Hypokalemia -on repletion, will monitor level MDD, severe -psych team following Morbid Obesity with BMI of 37,4 -lifestyle modification recommended Acute transaminitis 2/2 Tylenol overdose -levels improving, will monitor Acute Hypoxic resp failure -s/p extubation Chronic microcytic disease -H/H stable HTN -controlled on current meds Mild hypernatremia -resolved Chronic lower back pain -gabapentin started Disp: pt is not medically cleared for d/c to inpt psych facility History Interval history: Pt complained of lower back pain Hospitalist Physical - Constitutional Vitals: Temp Pulse Resp BP Pulse Ox 98.4 F 77 18 136/85 96 07/11/18 11:45 07/11/18 11:45 07/11/18 11:45 07/11/18 11:45 07/11/18 11:45 General appearance: Present: no acute distress, obese - EENT Eyes: Present: PERRL, EOM intact ENT: hearing intact, clear oral mucosa - Neck Neck: Present: supple - Respiratory Respiratory effort: normal Respiratory: bilateral: CTA - Cardiovascular Rhythm: regular Heart Sounds: Present: S1 & S2 - Extremities Extremities: No edema - Abdominal General gastrointestinal: soft, non-tender, non-distended, normal bowel sounds - Neurologic Neurologic: CNII-XII intact Results - Labs CBC & Chem 7: 07/08/18 03:10 07/11/18 05:38 Labs: Laboratory Last Values WBC 5.4 K/mm3 (4.5-11.0) 07/08/18 03:10 RBC 3.88 M/mm3 (3.65-5.03) 07/08/18 03:10 Hgb 9.4 gm/dl (10.1-14.3) L 07/08/18 03:10 Hct 29.7 % (30.3-42.9) L 07/08/18 03:10 MCV 77 fl (79-97) L 07/08/18 03:10 MCH 24 pg (28-32) L 07/08/18 03:10 MCHC 32 % (30-34) 07/08/18 03:10 RDW 18.6 % (13.2-15.2) H 07/08/18 03:10 Plt Count 190 K/mm3 (140-440) 07/08/18 03:10 Lymph % (Auto) 9.5 % (13.4-35.0) L 07/08/18 03:10 [place] % (Auto) 8.1 % (0.0-7.3) H 07/08/18 03:10 Eos % (Auto) 0.0 % (0.0-4.3) 07/08/18 03:10 Baso % (Auto) 0.1 % (0.0-1.8) 07/08/18 03:10 Lymph # 0.5 K/mm3 (1.2-5.4) L 07/08/18 03:10 [place] # 0.4 K/mm3 (0.0-0.8) 07/08/18 03:10 Eos # 0.0 K/mm3 (0.0-0.4) 07/08/18 03:10 Baso # 0.0 K/mm3 (0.0-0.1) 07/08/18 03:10 Seg Neutrophils % 82.3 % (40.0-70.0) H 07/08/18 03:10 Seg Neutrophils # 4.4 K/mm3 (1.8-7.7) 07/08/18 03:10 PT 14.3 Sec. (12.2-14.9) 07/09/18 19:10 INR 1.05 (0.87-1.13) 07/09/18 19:10 POC ABG pH 7.356 (7.35-7.45) 07/08/18 06:03 POC ABG pCO2 29.9 (35-45) L 07/08/18 06:03 POC ABG pO2 166 (80-105) H 07/08/18 06:03 POC ABG HCO3 16.7 07/08/18 06:03 POC ABG Total CO2 18 07/08/18 06:03 POC ABG O2 Sat 99 07/08/18 06:03 POC ABG Base Excess -9 07/08/18 06:03 FiO2 40 % 07/08/18 06:03 Sodium 142 mmol/L (137-145) 07/11/18 05:38 Potassium 3.2 mmol/L (3.6-5.0) L 07/11/18 05:38 Chloride 104.4 mmol/L (98-107) 07/11/18 05:38 Carbon Dioxide 22 mmol/L (22-30) 07/11/18 05:38 Anion Gap 19 mmol/L 07/11/18 05:38 BUN 8 mg/dL (7-17) 07/11/18 05:38 Creatinine 0.5 mg/dL (0.7-1.2) L 07/11/18 05:38 Estimated GFR > 60 ml/min 07/11/18 05:38 BUN/Creatinine Ratio 16 % 07/11/18 05:38 Glucose 119 mg/dL (65-100) H 07/11/18 05:38 POC Glucose 91 (70-105) 07/11/18 07:15 Lactic Acid 1.30 mmol/L (0.7-2.0) 07/08/18 03:40 Calcium 8.8 mg/dL (8.4-10.2) 07/11/18 05:38 Magnesium 2.00 mg/dL (1.7-2.3) 07/10/18 12:21 Total Bilirubin 0.40 mg/dL (0.1-1.2) 07/11/18 05:38 Direct Bilirubin < 0.2 mg/dL (0-0.2) 07/08/18 15:26 Indirect Bilirubin 0.2 mg/dL 07/08/18 15:26 AST 28 units/L (5-40) 07/11/18 05:38 ALT 69 units/L (7-56) H 07/11/18 05:38 Alkaline Phosphatase 175 units/L (35-129) H 07/11/18 05:38 Ammonia 34.0 umol/L (25-60) 07/07/18 14:48 Total Creatine Kinase 105 units/L (30-135) 07/07/18 16:37 Troponin T < 0.010 ng/mL (0.00-0.029) 07/07/18 14:48 Total Protein 7.2 g/dL (6.3-8.2) 07/11/18 05:38 Albumin 4.1 g/dL (3.9-5) 07/11/18 05:38 Albumin/Globulin Ratio 1.3 % 07/11/18 05:38 TSH 1.310 mlU/mL (0.270-4.200) 07/07/18 14:48 Urine Color Yellow (Yellow) 07/07/18 14:17 Urine Turbidity Slightly-cloudy (Clear) 07/07/18 14:17 Urine pH 5.0 (5.0-7.0) 07/07/18 14:17 Ur Specific [place] 1.032 (1.003-1.030) H 07/07/18 14:17 Urine Protein <15 mg/dl mg/dL (Negative) 07/07/18 14:17 Urine Glucose (UA) Neg mg/dL (Negative) 07/07/18 14:17 Urine Ketones Neg mg/dL (Negative) 07/07/18 14:17 Urine Blood Neg (Negative) 07/07/18 14:17 Urine Nitrite Neg (Negative) 07/07/18 14:17 Urine Bilirubin Neg (Negative) 07/07/18 14:17 Urine Urobilinogen < 2.0 mg/dL (<2.0) 07/07/18 14:17 Ur Leukocyte Esterase Neg (Negative) 07/07/18 14:17 Urine WBC (Auto) 5.0 /HPF (0.0-6.0) 07/07/18 14:17 Urine RBC (Auto) 1.0 /HPF (0.0-6.0) 07/07/18 14:17 Urine Bacteria (Auto) 1+ /HPF (Negative) 07/07/18 14:17 Urine Mucus Few /HPF 07/07/18 14:17 Urine HCG, Qual Negative (Negative) 07/07/18 14:17 Salicylates < 0.3 mg/dL (2.8-20.0) L 07/07/18 14:48 Urine Opiates Screen Presumptive negative 07/07/18 14:17 Urine Methadone Screen Presumptive negative 07/07/18 14:17 Acetaminophen < 5.0 ug/mL (10.0-30.0) L 07/09/18 19:10 Ur Barbiturates Screen Presumptive negative 07/07/18 14:17 Ur Phencyclidine Scrn Presumptive negative 07/07/18 14:17 Ur Amphetamines Screen Presumptive negative 07/07/18 14:17 U Benzodiazepines Scrn Presumptive negative 07/07/18 14:17 Urine Cocaine Screen Presumptive negative 07/07/18 14:17 U Marijuana (THC) Screen Presumptive negative 07/07/18 14:17 Drugs of Abuse Note Disclamer 07/07/18 14:17 Plasma/Serum Alcohol < 0.01 % (0-0.07) 07/07/18 14:48 Nutrition/Malnutrition Assess - Dietary Evaluation Nutrition/Malnutrition Findings: Nutrition Notes Start: 07/08/18 11:51 Freq: Status: Active Protocol: Document 07/09/18 13:54 SA (Rec: 07/09/18 14:02 SA [id number]) Co-Sign 07/09/18 13:54 LP Nutrition Notes Initial or Follow up Reassessment Current Diagnosis Diabetes Hypertension Respiratory Failure Other Pertinent Diagnosis AMS, acute encephalopathy, acetaminophen overdose Current Diet Regular Labs/Tests Glu: 203 Pertinent Medications Reviewed Height 5 ft 4 in Weight 102 kg [place] Body Weight (kg) 54.54 BMI 38.6 Weight Status Morbidly Obese Subjective/Other Information Patient states appetite is fine. Pt reports eating 50-60% of meals. Pt denies swallowing/chewing difficulty and N/V/D. Pt interested in ONS. Percent of energy/protein needs met: 76%/37% Burn Absent Trauma Absent #1 Nutrition Diagnosis Inadequate oral intake Diagnosis Progress(for reassessment Continues documentation) Is patient on ventilator? No Is Patient Ambulatory and/or Out of Bed Yes REE-([place]-St. Jeor-ambulatory/OOB) [ 2138.500 NUTR.MSJOOB] Kcal/Kg value to use for calculation 15 Approximate Energy Requirements Using 1530 kcal/Kg Calculation Used for Recommendations Kcal/kg Additional Notes Pro: 81- 102 g (0.8-1 g/kg) Fluid: 1mL/kcal Nutrition Intervention Change Diet Order: Cardiac/ Consistent CHO Add Supplement/Snack (indicate name/kcal Ensure High Protein one daily /protein ) Provides kCal: 160 Provides Protein (gm) 16 Goal #1 Meet at least 75% of kcal and pro needs via PO and ONS intake Anticipated Discharge Needs: Cardiac/ Consistent CHO Follow-Up By: 07/13/18 Additional Comments F/U: PO intake and ONS intake
[2018-07-11] MEDS: NEURONTIN PO SCH ×2 (13:50→21:49)
[2018-07-11] MEDS: BENADRYL PO SCH (21:48)
[2018-07-12] MEDS: PERCOCET 5/325 PO PRN ×3 (05:05→18:34)
[2018-07-12] MEDS: NEURONTIN PO SCH ×3 (05:05→21:28)
[2018-07-12 06:15] LABS: Alanine Aminotransferase 53 units/L (7-56); Albumin 3.9 g/dL (3.9-5); BUN/Creatinine Ratio 22; Blood Urea Nitrogen 11 mg/dL (7-17); Calcium 8.6 mg/dL (8.4-10.2); Hemolysis Index 6
[2018-07-12] MEDS: COREG PO SCH ×2 (11:51→21:30)
[2018-07-12] MEDS: NORVASC PO SCH (11:51)
[2018-07-12] MEDS: SODIUM CHLORIDE FLUSH SYRINGE 10 ML IV SCH ×2 (11:56→21:31)
[2018-07-12] MEDS: PROzac PO SCH (11:56)
--- NOTE | 2018-07-12 12:22 | Progress Note ---
Subjective - Reason for Consult Consult date: 07/12/18 Reason for consult: Psychiatry Follow-up - Chief Complaint Chief complaint: "I'm doing better" 47 y.o. who presented to the ER for overdosing on Tylenol pills. Today the patient is calm and cooperative during the assessment. She stated that she plan to move to [place] once discharged to get away from the family issues she deal with. She stated that her overdose was not a safe act. She stated that she could have handle her crisis a better way. She stated that she got lots of sleep the past few days. She denies SI/HI's and AVH's. She denies any side effects of her medications. Mental Status Exam - Vital signs Last Vital Signs Temp 98.5 F 07/12/18 06:16 Pulse 74 07/12/18 11:51 Resp 16 07/12/18 06:16 BP 147/92 07/12/18 11:51 Pulse Ox 97 07/12/18 06:16 - Exam Narrative exam: MSE: Appearance: calm, cooperative Behavior: regular eye contact Speech: regular rate and loud tone Mood: "better" Affect: congruent to mood Thought Process: linear Thought Content: denies SI/HI's and AVH's Motor Activity: sitting up in the bed Cognition: A/O x3 Insight: fair Judgment: fair Assessment and Plan Impression: MDD, Severe Type. Intentional Overdose. Additional Dx: Insomnia. Today the patient is calm and cooperative during the assessment. LF's are elevated, but trending down. QTc 438. DDx: R/O Bipolar DO Recommendation/Plan: Continue 1013 and Prozac 20 mg PO daily for depression and Benadryl 25 mg PO HS for sleep. Discussed possible suicidality/medication induced caridad with the patient reference Prozac. Discussed generalized coping skills with the patient. Dispo: Continue to assess the patient daily. Once the patient is medically clear proper dispo will be determined. Will staff with Dr Daryn Talbot.
--- NOTE | 2018-07-12 13:50 | Progress Note ---
Assessment and Plan Assessment and plan: Tylenol Overdose 2/2 suicide Attempt -maintain 1013 and constant observer -suicide precautions at all times -for inpt psych facility when medically cleared Hypokalemia -Replaced MDD, severe -psych team following Morbid Obesity with BMI of 37,4 -lifestyle modification recommended Acute transaminitis 2/2 Tylenol overdose -levels improving, will monitor Acute Hypoxic resp failure -s/p extubation Chronic microcytic disease -H/H stable HTN -controlled on current meds Mild hypernatremia -resolved Chronic lower back pain -gabapentin started Disp: pt is medically cleared for d/c to inpt psych facility History Interval history: Patient seen and examined, in no acute distress. eating breakfast at the time of my exam. No other complaints. Hospitalist Physical - Physical exam Narrative exam: VITAL SIGNS: Reviewed. GENERAL: The patient appeared well nourished and normally developed. Vital signs as documented. HEAD: No signs of head trauma. EYES: Pupils are equal. Extraocular motions intact. EARS: Hearing grossly intact. MOUTH: Oropharynx is normal. NECK: No adenopathy, no JVD. CHEST: Chest with clear breath sounds bilaterally. No wheezes, rales, or rhonchi. CARDIAC: Regular rate and rhythm. S1 and S2, without murmurs, gallops, or rubs. VASCULAR: No Edema. Peripheral pulses normal and equal in all extremities. ABDOMEN: Soft, without detectable tenderness. No sign of distention. No rebound or guarding, and no masses palpated. Bowel Sounds normal. MUSCULOSKELETAL: Good range of motion of all major joints. Extremities without clubbing, cyanosis or edema. NEUROLOGIC EXAM: Alert and oriented x 3. No focal sensory or strength deficits. Speech normal. Follows commands. PSYCHIATRIC: Mood normal. SKIN: No rash or lesions. - Constitutional Vitals: Temp Pulse Resp BP Pulse Ox 98.3 F 68 18 124/81 97 07/12/18 13:20 07/12/18 13:20 07/12/18 13:20 07/12/18 13:20 07/12/18 13:20 General appearance: Present: no acute distress, obese Results - Labs CBC & Chem 7: 07/08/18 03:10 07/12/18 05:27 Labs: Laboratory Last Values WBC 5.4 K/mm3 (4.5-11.0) 07/08/18 03:10 RBC 3.88 M/mm3 (3.65-5.03) 07/08/18 03:10 Hgb 9.4 gm/dl (10.1-14.3) L 07/08/18 03:10 Hct 29.7 % (30.3-42.9) L 07/08/18 03:10 MCV 77 fl (79-97) L 07/08/18 03:10 MCH 24 pg (28-32) L 07/08/18 03:10 MCHC 32 % (30-34) 07/08/18 03:10 RDW 18.6 % (13.2-15.2) H 07/08/18 03:10 Plt Count 190 K/mm3 (140-440) 07/08/18 03:10 Lymph % (Auto) 9.5 % (13.4-35.0) L 07/08/18 03:10 [place] % (Auto) 8.1 % (0.0-7.3) H 07/08/18 03:10 Eos % (Auto) 0.0 % (0.0-4.3) 07/08/18 03:10 Baso % (Auto) 0.1 % (0.0-1.8) 07/08/18 03:10 Lymph # 0.5 K/mm3 (1.2-5.4) L 07/08/18 03:10 [place] # 0.4 K/mm3 (0.0-0.8) 07/08/18 03:10 Eos # 0.0 K/mm3 (0.0-0.4) 07/08/18 03:10 Baso # 0.0 K/mm3 (0.0-0.1) 07/08/18 03:10 Seg Neutrophils % 82.3 % (40.0-70.0) H 07/08/18 03:10 Seg Neutrophils # 4.4 K/mm3 (1.8-7.7) 07/08/18 03:10 PT 14.3 Sec. (12.2-14.9) 07/09/18 19:10 INR 1.05 (0.87-1.13) 07/09/18 19:10 POC ABG pH 7.356 (7.35-7.45) 07/08/18 06:03 POC ABG pCO2 29.9 (35-45) L 07/08/18 06:03 POC ABG pO2 166 (80-105) H 07/08/18 06:03 POC ABG HCO3 16.7 07/08/18 06:03 POC ABG Total CO2 18 07/08/18 06:03 POC ABG O2 Sat 99 07/08/18 06:03 POC ABG Base Excess -9 07/08/18 06:03 FiO2 40 % 07/08/18 06:03 Sodium 143 mmol/L (137-145) 07/12/18 05:27 Potassium 4.1 mmol/L (3.6-5.0) D 07/12/18 05:27 Chloride 107.1 mmol/L (98-107) H 07/12/18 05:27 Carbon Dioxide 23 mmol/L (22-30) 07/12/18 05:27 Anion Gap 17 mmol/L 07/12/18 05:27 BUN 11 mg/dL (7-17) 07/12/18 05:27 Creatinine 0.5 mg/dL (0.7-1.2) L 07/12/18 05:27 Estimated GFR > 60 ml/min 07/12/18 05:27 BUN/Creatinine Ratio 22 % 07/12/18 05:27 Glucose 99 mg/dL (65-100) 07/12/18 05:27 POC Glucose 123 (70-105) H 07/12/18 12:47 Lactic Acid 1.30 mmol/L (0.7-2.0) 07/08/18 03:40 Calcium 8.6 mg/dL (8.4-10.2) 07/12/18 05:27 Magnesium 2.00 mg/dL (1.7-2.3) 07/10/18 12:21 Total Bilirubin 0.20 mg/dL (0.1-1.2) 07/12/18 05:27 Direct Bilirubin < 0.2 mg/dL (0-0.2) 07/08/18 15:26 Indirect Bilirubin 0.2 mg/dL 07/08/18 15:26 AST 22 units/L (5-40) 07/12/18 05:27 ALT 53 units/L (7-56) 07/12/18 05:27 Alkaline Phosphatase 173 units/L (35-129) H 07/12/18 05:27 Ammonia 34.0 umol/L (25-60) 07/07/18 14:48 Total Creatine Kinase 105 units/L (30-135) 07/07/18 16:37 Troponin T < 0.010 ng/mL (0.00-0.029) 07/07/18 14:48 Total Protein 6.9 g/dL (6.3-8.2) 07/12/18 05:27 Albumin 3.9 g/dL (3.9-5) 07/12/18 05:27 Albumin/Globulin Ratio 1.3 % 07/12/18 05:27 TSH 1.310 mlU/mL (0.270-4.200) 07/07/18 14:48 Urine Color Yellow (Yellow) 07/07/18 14:17 Urine Turbidity Slightly-cloudy (Clear) 07/07/18 14:17 Urine pH 5.0 (5.0-7.0) 07/07/18 14:17 Ur Specific [place] 1.032 (1.003-1.030) H 07/07/18 14:17 Urine Protein <15 mg/dl mg/dL (Negative) 07/07/18 14:17 Urine Glucose (UA) Neg mg/dL (Negative) 07/07/18 14:17 Urine Ketones Neg mg/dL (Negative) 07/07/18 14:17 Urine Blood Neg (Negative) 07/07/18 14:17 Urine Nitrite Neg (Negative) 07/07/18 14:17 Urine Bilirubin Neg (Negative) 07/07/18 14:17 Urine Urobilinogen < 2.0 mg/dL (<2.0) 07/07/18 14:17 Ur Leukocyte Esterase Neg (Negative) 07/07/18 14:17 Urine WBC (Auto) 5.0 /HPF (0.0-6.0) 07/07/18 14:17 Urine RBC (Auto) 1.0 /HPF (0.0-6.0) 07/07/18 14:17 Urine Bacteria (Auto) 1+ /HPF (Negative) 07/07/18 14:17 Urine Mucus Few /HPF 07/07/18 14:17 Urine HCG, Qual Negative (Negative) 07/07/18 14:17 Salicylates < 0.3 mg/dL (2.8-20.0) L 07/07/18 14:48 Urine Opiates Screen Presumptive negative 07/07/18 14:17 Urine Methadone Screen Presumptive negative 07/07/18 14:17 Acetaminophen < 5.0 ug/mL (10.0-30.0) L 07/09/18 19:10 Ur Barbiturates Screen Presumptive negative 07/07/18 14:17 Ur Phencyclidine Scrn Presumptive negative 07/07/18 14:17 Ur Amphetamines Screen Presumptive negative 07/07/18 14:17 U Benzodiazepines Scrn Presumptive negative 07/07/18 14:17 Urine Cocaine Screen Presumptive negative 07/07/18 14:17 U Marijuana (THC) Screen Presumptive negative 07/07/18 14:17 Drugs of Abuse Note Disclamer 07/07/18 14:17 Plasma/Serum Alcohol < 0.01 % (0-0.07) 07/07/18 14:48 Nutrition/Malnutrition Assess - Dietary Evaluation Nutrition/Malnutrition Findings: Nutrition Notes Start: 07/08/18 11:51 Freq: Status: Active Protocol: Document 07/09/18 13:54 SA (Rec: 07/09/18 14:02 SA [id number]) Co-Sign 07/09/18 13:54 LP Nutrition Notes Initial or Follow up Reassessment Current Diagnosis Diabetes Hypertension Respiratory Failure Other Pertinent Diagnosis AMS, acute encephalopathy, acetaminophen overdose Current Diet Regular Labs/Tests Glu: 203 Pertinent Medications Reviewed Height 5 ft 4 in Weight 102 kg [place] Body Weight (kg) 54.54 BMI 38.6 Weight Status Morbidly Obese Subjective/Other Information Patient states appetite is fine. Pt reports eating 50-60% of meals. Pt denies swallowing/chewing difficulty and N/V/D. Pt interested in ONS. Percent of energy/protein needs met: 76%/37% Burn Absent Trauma Absent #1 Nutrition Diagnosis Inadequate oral intake Diagnosis Progress(for reassessment Continues documentation) Is patient on ventilator? No Is Patient Ambulatory and/or Out of Bed Yes REE-([place]-St. Jeor-ambulatory/OOB) [ 1424.500 NUTR.MSJOOB] Kcal/Kg value to use for calculation 15 Approximate Energy Requirements Using 1530 kcal/Kg Calculation Used for Recommendations Kcal/kg Additional Notes Pro: 81- 102 g (0.8-1 g/kg) Fluid: 1mL/kcal Nutrition Intervention Change Diet Order: Cardiac/ Consistent CHO Add Supplement/Snack (indicate name/kcal Ensure High Protein one daily /protein ) Provides kCal: 160 Provides Protein (gm) 16 Goal #1 Meet at least 75% of kcal and pro needs via PO and ONS intake Anticipated Discharge Needs: Cardiac/ Consistent CHO Follow-Up By: 07/13/18 Additional Comments F/U: PO intake and ONS intake
[2018-07-12] MEDS: BENADRYL PO SCH (21:28)
[2018-07-13] MEDS: PERCOCET 5/325 PO PRN ×3 (05:20→18:27)
[2018-07-13] MEDS: NEURONTIN PO SCH ×3 (05:21→22:25)
[2018-07-13 06:59] LABS: Alanine Aminotransferase 85 units/L (7-56); Albumin 3.7 g/dL (3.9-5); BUN/Creatinine Ratio 20; Blood Urea Nitrogen 10 mg/dL (7-17); Calcium 8.6 mg/dL (8.4-10.2); Hemolysis Index 0
--- NOTE | 2018-07-13 10:27 | Discharge Summary ---
Providers - Providers Date of Admission: 07/07/18 18:03 Attending physician: MUNIRA JUDGE MD 07/07/18 22:56 Consult to Dietitian/Nutrition [CONS] Routine Physician Instructions: Reason For Exam: Reason for Consult: Evaluate nutritional intake 07/08/18 13:33 psychiatry consult [Consult to Mental Health] [CONS] Urgent Reason For Exam: drug overdose Place consult to:: MENTAL HEALTH Notified:: YES Phone number called:: [phone] If yes, spoke with:: BETSY Comment:: [facility] NURSE LEFT FOR THE DAY 07/08/18 16:36 Physical Therapy Evaluation and Treat [CONS] Routine Comment: Reason For Exam: post extubation [facility] Reason for admission: suicidal ideation with Tylenol overdose Condition: Stable Hospital course: 47 YO Female with HTN, DM, MO presents to ED for evaluation. Pt is lethargic and is unable to provide detailed history. Pt history taken from ED staff, EMS, and medical record. Pt found down and unresponsive by a family member. EMS notified, and upon arrival the patient was found to be unresponsive and was treated with Naloxone and transported to [facility] for further care. Pt seen and evaluated in ED and found to have Encephalopathy, Acetominophen Toxicity, Acidosis, and Respiratory Failure. Pt has a positive gag reflex, and is able to protect her airway. Pt placed on supplemental oxygen and mucomyst with improvement in oxygenation. Pt admitted to ICU. Poison Control consulted in ED and initiated on mucomyst as per recommendations. Pulmonary team consulted. Patient was started on Mucomyst per recommendation of poison control. She was subsequently extubated and was seen by psychiatry. Past psychiatric documentation 47 y.o. who presented to the ER for overdosing on Tylenol pills. Today the patient is calm and cooperative during the assessment. She stated that she plan to move to [place] once discharged to get away from the family issues she deal with. She stated that her overdose was not a safe act. She stated that she could have handle her crisis a better way. She stated that she got lots of sleep the past few days. She denies SI/HI's and AVH's. She denies any side effects of her medications. Possible bipolar disorder and disposition plan for the patient is medically cleared which she is today. She'll like [facility] to psych facility unless her 1013 this rescinded by psych she today denies to me any suicidal intention. Extensive counseling has been provided to her on Tylenol toxicity. She verbalized understanding. Patients Blood pressure was discussed in detail and changes to medication. Also the patient was advised age appropriate screening and she will follow with her PCP. She will follow with her pain doctors for her chronic pain concerns. Tylenol Overdose 2/2 suicide Attempt Hypokalemia MDD, severe Morbid Obesity with BMI of 37,4 Bipolar disorder Acute transaminitis 2/2 Tylenol overdose Acute Hypoxic resp failure Chronic microcytic disease HTN Mild hypernatremia Chronic lower back pain Disposition: DC/TX-65 PSY HOSP/PSY UNIT Time spent for discharge: 35 MINS Core Measure Documentation - Palliative Care Palliative Care/ Comfort Measures: Not Applicable - Core Measures Any of the following diagnoses?: none Exam - Physical Exam Narrative exam: VITAL SIGNS: Reviewed. GENERAL: The patient appeared well nourished and normally developed. Vital signs as documented. HEAD: No signs of head trauma. EYES: Pupils are equal. Extraocular motions intact. EARS: Hearing grossly intact. MOUTH: Oropharynx is normal. NECK: No adenopathy, no JVD. CHEST: Chest with clear breath sounds bilaterally. No wheezes, rales, or rhonchi. CARDIAC: Regular rate and rhythm. S1 and S2, without murmurs, gallops, or rubs. VASCULAR: No Edema. Peripheral pulses normal and equal in all extremities. ABDOMEN: Soft, without detectable tenderness. No sign of distention. No rebound or guarding, and no masses palpated. Bowel Sounds normal. MUSCULOSKELETAL: Good range of motion of all major joints. Extremities without clubbing, cyanosis or edema. NEUROLOGIC EXAM: Alert and oriented x 3. No focal sensory or strength deficits. Speech normal. Follows commands. PSYCHIATRIC: Mood normal. SKIN: No rash or lesions. - Constitutional Vitals: Temp Pulse Resp BP Pulse Ox 98.6 F 104 H 20 148/89 100 07/13/18 05:11 07/13/18 05:00 07/13/18 05:11 07/13/18 05:11 07/13/18 05:00 Plan Activity: advance as tolerated, fall precautions Diet: regular Special Instructions: record daily weights, record daily BP diary Follow up with: RADHA LEBLANC MD [Primary Care Provider] - 7 Days [facility] [Outside] - 7 Days Prescriptions: amLODIPine [Norvasc] 10 mg PO QDAY #30 tablet Carvedilol [Coreg] 12.5 mg PO BID #60 tablet diphenhydrAMINE [Benadryl CAP] 25 mg PO HS PRN #10 capsule PRN Reason: Sleep FLUoxetine [PROzac] 20 mg PO QDAY #30 capsule Gabapentin [Neurontin] 300 mg PO Q8HR #14 capsule
[2018-07-13] MEDS: NORVASC PO SCH (11:19)
[2018-07-13] MEDS: PROzac PO SCH (11:19)
[2018-07-13] MEDS: COREG PO SCH ×2 (11:19→22:24)
[2018-07-13] MEDS: SODIUM CHLORIDE FLUSH SYRINGE 10 ML IV SCH ×2 (11:20→22:25)
--- NOTE | 2018-07-13 12:13 | Progress Note ---
Subjective - Reason for Consult Consult date: 07/13/18 Reason for consult: Psychaitry Follow-up - Chief Complaint Chief complaint: "Bong" 47 y.o. who presented to the ER for overdosing on Tylenol pills. Today the patient is calm and cooperative during the assessment. She stated that she has identified some of her triggers for her depression. She stated that she want to live. She stated that she want to continue her treatment in the PHP/IOP setting when discharged. She denies SI/HI's and AVH's. She denies any side effects of her medications. Mental Status Exam - Vital signs Last Vital Signs Temp 98.9 F 07/13/18 11:13 Pulse 67 07/13/18 11:19 Resp 18 07/13/18 11:13 BP 135/81 07/13/18 11:19 Pulse Ox 98 07/13/18 11:13 - Exam Narrative exam: MSE: Appearance: calm, cooperative Behavior: regular eye contact Speech: regular rate and loud tone Mood: "okay" Affect: congruent to mood Thought Process: linear Thought Content: denies SI/HI's and AVH's Motor Activity: sitting up in the bed Cognition: A/O x3 Insight: appropriate Judgment: fair Assessment and Plan Impression: MDD, Severe Type. Intentional Overdose. Additional Dx: Insomnia. Today the patient is calm and cooperative during the assessment. LF's are elevated. QTc 438. DDx: R/O Bipolar DO Recommendation/Plan: Reevaluate 1013 in 24 hours. If the patient's 1013 is rescinded, a safety contract and a suicide risk assessment will be completed. Continue Prozac 20 mg PO daily for depression and Benadryl 25 mg PO HS for sleep. Discussed possible suicidality/medication induced caridad with the patient reference Prozac. Discussed generalized coping skills with the patient. Dispo: If the patient's 1013 is rescinded in 24 hours, she wants to volunteer for [facility] with [facility]. Will staff with Dr Anju Talbot.
--- NOTE | 2018-07-13 13:38 | Progress Note ---
Assessment and Plan Assessment and plan: Tylenol Overdose 2/2 suicide Attempt -maintain 1013 and constant observer -suicide precautions at all times -for inpt psych facility now that patient is medically cleared Hypokalemia -Replaced MDD, severe -psych team following Morbid Obesity with BMI of 37,4 -lifestyle modification recommended Acute transaminitis 2/2 Tylenol overdose -levels improving, will monitor Acute Hypoxic resp failure -s/p extubation Chronic microcytic disease -H/H stable HTN -controlled on current meds Mild hypernatremia -resolved Chronic lower back pain -gabapentin started Disp: pt is medically cleared for d/c to inpt psych facility History Interval history: Patient seen and examined, in no acute distress. wants regular food, denies hx of dm. No other complaints. Hospitalist Physical - Physical exam Narrative exam: VITAL SIGNS: Reviewed. GENERAL: The patient appeared well nourished and normally developed. Vital signs as documented. HEAD: No signs of head trauma. EYES: Pupils are equal. Extraocular motions intact. EARS: Hearing grossly intact. MOUTH: Oropharynx is normal. NECK: No adenopathy, no JVD. CHEST: Chest with clear breath sounds bilaterally. No wheezes, rales, or rhonchi. CARDIAC: Regular rate and rhythm. S1 and S2, without murmurs, gallops, or rubs. VASCULAR: No Edema. Peripheral pulses normal and equal in all extremities. ABDOMEN: Soft, without detectable tenderness. No sign of distention. No rebound or guarding, and no masses palpated. Bowel Sounds normal. MUSCULOSKELETAL: Good range of motion of all major joints. Extremities without clubbing, cyanosis or edema. NEUROLOGIC EXAM: Alert and oriented x 3. No focal sensory or strength deficits . Speech normal. Follows commands. PSYCHIATRIC: Mood normal. SKIN: No rash or lesions. - Constitutional Vitals: Temp Pulse Resp BP Pulse Ox 98.9 F 67 18 135/81 98 07/13/18 11:13 07/13/18 11:19 07/13/18 11:13 07/13/18 11:19 07/13/18 11:13 General appearance: Present: no acute distress, obese Results - Labs CBC & Chem 7: 07/08/18 03:10 07/13/18 04:51 Labs: Laboratory Last Values WBC 5.4 K/mm3 (4.5-11.0) 07/08/18 03:10 RBC 3.88 M/mm3 (3.65-5.03) 07/08/18 03:10 Hgb 9.4 gm/dl (10.1-14.3) L 07/08/18 03:10 Hct 29.7 % (30.3-42.9) L 07/08/18 03:10 MCV 77 fl (79-97) L 07/08/18 03:10 MCH 24 pg (28-32) L 07/08/18 03:10 MCHC 32 % (30-34) 07/08/18 03:10 RDW 18.6 % (13.2-15.2) H 07/08/18 03:10 Plt Count 190 K/mm3 (140-440) 07/08/18 03:10 Lymph % (Auto) 9.5 % (13.4-35.0) L 07/08/18 03:10 [place] % (Auto) 8.1 % (0.0-7.3) H 07/08/18 03:10 Eos % (Auto) 0.0 % (0.0-4.3) 07/08/18 03:10 Baso % (Auto) 0.1 % (0.0-1.8) 07/08/18 03:10 Lymph # 0.5 K/mm3 (1.2-5.4) L 07/08/18 03:10 [place] # 0.4 K/mm3 (0.0-0.8) 07/08/18 03:10 Eos # 0.0 K/mm3 (0.0-0.4) 07/08/18 03:10 Baso # 0.0 K/mm3 (0.0-0.1) 07/08/18 03:10 Seg Neutrophils % 82.3 % (40.0-70.0) H 07/08/18 03:10 Seg Neutrophils # 4.4 K/mm3 (1.8-7.7) 07/08/18 03:10 PT 14.3 Sec. (12.2-14.9) 07/09/18 19:10 INR 1.05 (0.87-1.13) 07/09/18 19:10 POC ABG pH 7.356 (7.35-7.45) 07/08/18 06:03 POC ABG pCO2 29.9 (35-45) L 07/08/18 06:03 POC ABG pO2 166 (80-105) H 07/08/18 06:03 POC ABG HCO3 16.7 07/08/18 06:03 POC ABG Total CO2 18 07/08/18 06:03 POC ABG O2 Sat 99 07/08/18 06:03 POC ABG Base Excess -9 07/08/18 06:03 FiO2 40 % 07/08/18 06:03 Sodium 143 mmol/L (137-145) 07/13/18 04:51 Potassium 4.1 mmol/L (3.6-5.0) 07/13/18 04:51 Chloride 105.2 mmol/L (98-107) 07/13/18 04:51 Carbon Dioxide 26 mmol/L (22-30) 07/13/18 04:51 Anion Gap 16 mmol/L 07/13/18 04:51 BUN 10 mg/dL (7-17) 07/13/18 04:51 Creatinine 0.5 mg/dL (0.7-1.2) L 07/13/18 04:51 Estimated GFR > 60 ml/min 07/13/18 04:51 BUN/Creatinine Ratio 20 % 07/13/18 04:51 Glucose 84 mg/dL (65-100) 07/13/18 04:51 POC Glucose 86 (70-105) 07/13/18 11:42 Lactic Acid 1.30 mmol/L (0.7-2.0) 07/08/18 03:40 Calcium 8.6 mg/dL (8.4-10.2) 07/13/18 04:51 Magnesium 2.00 mg/dL (1.7-2.3) 07/10/18 12:21 Total Bilirubin 0.30 mg/dL (0.1-1.2) 07/13/18 04:51 Direct Bilirubin < 0.2 mg/dL (0-0.2) 07/08/18 15:26 Indirect Bilirubin 0.2 mg/dL 07/08/18 15:26 AST 134 units/L (5-40) H 07/13/18 04:51 ALT 85 units/L (7-56) H 07/13/18 04:51 Alkaline Phosphatase 255 units/L (35-129) H 07/13/18 04:51 Ammonia 34.0 umol/L (25-60) 07/07/18 14:48 Total Creatine Kinase 105 units/L (30-135) 07/07/18 16:37 Troponin T < 0.010 ng/mL (0.00-0.029) 07/07/18 14:48 Total Protein 6.6 g/dL (6.3-8.2) 07/13/18 04:51 Albumin 3.7 g/dL (3.9-5) L 07/13/18 04:51 Albumin/Globulin Ratio 1.3 % 07/13/18 04:51 TSH 1.310 mlU/mL (0.270-4.200) 07/07/18 14:48 Urine Color Yellow (Yellow) 07/07/18 14:17 Urine Turbidity Slightly-cloudy (Clear) 07/07/18 14:17 Urine pH 5.0 (5.0-7.0) 07/07/18 14:17 Ur Specific [place] 1.032 (1.003-1.030) H 07/07/18 14:17 Urine Protein <15 mg/dl mg/dL (Negative) 07/07/18 14:17 Urine Glucose (UA) Neg mg/dL (Negative) 07/07/18 14:17 Urine Ketones Neg mg/dL (Negative) 07/07/18 14:17 Urine Blood Neg (Negative) 07/07/18 14:17 Urine Nitrite Neg (Negative) 07/07/18 14:17 Urine Bilirubin Neg (Negative) 07/07/18 14:17 Urine Urobilinogen < 2.0 mg/dL (<2.0) 07/07/18 14:17 Ur Leukocyte Esterase Neg (Negative) 07/07/18 14:17 Urine WBC (Auto) 5.0 /HPF (0.0-6.0) 07/07/18 14:17 Urine RBC (Auto) 1.0 /HPF (0.0-6.0) 07/07/18 14:17 Urine Bacteria (Auto) 1+ /HPF (Negative) 07/07/18 14:17 Urine Mucus Few /HPF 07/07/18 14:17 Urine HCG, Qual Negative (Negative) 07/07/18 14:17 Salicylates < 0.3 mg/dL (2.8-20.0) L 07/07/18 14:48 Urine Opiates Screen Presumptive negative 07/07/18 14:17 Urine Methadone Screen Presumptive negative 07/07/18 14:17 Acetaminophen < 5.0 ug/mL (10.0-30.0) L 07/09/18 19:10 Ur Barbiturates Screen Presumptive negative 07/07/18 14:17 Ur Phencyclidine Scrn Presumptive negative 07/07/18 14:17 Ur Amphetamines Screen Presumptive negative 07/07/18 14:17 U Benzodiazepines Scrn Presumptive negative 07/07/18 14:17 Urine Cocaine Screen Presumptive negative 07/07/18 14:17 U Marijuana (THC) Screen Presumptive negative 07/07/18 14:17 Drugs of Abuse Note Disclamer 07/07/18 14:17 Plasma/Serum Alcohol < 0.01 % (0-0.07) 07/07/18 14:48 Nutrition/Malnutrition Assess - Dietary Evaluation Nutrition/Malnutrition Findings: Nutrition Notes Start: 07/08/18 11:51 Freq: Status: Active Protocol: Document 07/09/18 13:54 SA (Rec: 07/09/18 14:02 SA [id number]) Co-Sign 07/09/18 13:54 LP Nutrition Notes Initial or Follow up Reassessment Current Diagnosis Diabetes Hypertension Respiratory Failure Other Pertinent Diagnosis AMS, acute encephalopathy, acetaminophen overdose Current Diet Regular Labs/Tests Glu: 203 Pertinent Medications Reviewed Height 5 ft 4 in Weight 102 kg [place] Body Weight (kg) 54.54 BMI 38.6 Weight Status Morbidly Obese Subjective/Other Information Patient states appetite is fine. Pt reports eating 50-60% of meals. Pt denies swallowing/chewing difficulty and N/V/D. Pt interested in ONS. Percent of energy/protein needs met: 76%/37% Burn Absent Trauma Absent #1 Nutrition Diagnosis Inadequate oral intake Diagnosis Progress(for reassessment Continues documentation) Is patient on ventilator? No Is Patient Ambulatory and/or Out of Bed Yes REE-([place]-ambulatory/OOB) [ 3160.500 NUTR.MSJOOB] Kcal/Kg value to use for calculation 15 Approximate Energy Requirements Using 1530 kcal/Kg Calculation Used for Recommendations Kcal/kg Additional Notes Pro: 81- 102 g (0.8-1 g/kg) Fluid: 1mL/kcal Nutrition Intervention Change Diet Order: Cardiac/ Consistent CHO Add Supplement/Snack (indicate name/kcal Ensure High Protein one daily /protein ) Provides kCal: 160 Provides Protein (gm) 16 Goal #1 Meet at least 75% of kcal and pro needs via PO and ONS intake Anticipated Discharge Needs: Cardiac/ Consistent CHO Follow-Up By: 07/13/18 Additional Comments F/U: PO intake and ONS intake
[2018-07-13] MEDS: BENADRYL PO SCH (22:24)
[2018-07-14] MEDS: PERCOCET 5/325 PO PRN ×4 (01:26→19:21)
[2018-07-14] MEDS: NEURONTIN PO SCH ×3 (05:40→22:00)
[2018-07-14] MEDS: PROzac PO SCH (10:53)
[2018-07-14] MEDS: SODIUM CHLORIDE FLUSH SYRINGE 10 ML IV SCH ×2 (10:53→22:21)
[2018-07-14] MEDS: NORVASC PO SCH (10:59)
[2018-07-14] MEDS: COREG PO SCH ×2 (11:00→22:00)
--- NOTE | 2018-07-14 14:05 | Progress Note ---
Subjective - Reason for Consult Consult date: 07/14/18 Reason for consult: Psychiatric Follow-up Evaluation - Chief Complaint Chief complaint: "I feel fine. " Patient is a 47 y.o. female who presented to the ER for overdosing on Tylenol pills. Today the patient is calm and cooperative during the assessment. She states that she is able to identify some of her triggers for her depression, which includes her family and her health condition. She rates her depression 1/10, with 10 being the worse. She states that she would like to live. " Number one I should'nt have never tried to kill myself to begin with. I have alot to live for. I have things I want to accomplish." Patient has written down goals that she would like to accomplish once discharged. The goals include: get a divorce, start therapy, get assistance with rent, attend AA meetings, apply for assistance with rent, and go back to work. She states that she want to continue her treatment in the PHP/IOP setting when discharged. She denies SI/HI's, AVH's, delusions. She denies any side effects of her medications. Provider gained collateral, called patient's brother, Ryne Rivera [phone]. He expressed that patient has no access to weapons. Per brother patient is safe to return home. Patient is in no apparent distress or no imminent danger to self/others. Mental Status Exam - Vital signs Last Vital Signs Temp 98.7 F 07/14/18 06:02 Pulse 71 07/14/18 10:59 Resp 12 07/14/18 06:02 BP 131/90 07/14/18 10:59 Pulse Ox 96 07/14/18 06:02 - Exam Narrative exam: Mental Status Exam Appearance: calm, cooperative Behavior: regular eye contact Speech: regular rate and loud tone Mood: "I'm fine" Affect: congruent to mood Thought Process: linear Thought Content: denies SI/HI's, AVH's, delusions Motor Activity: sitting up in the bed Cognition: A/O x3 Insight: appropriate Judgment: fair Assessment and Plan Impression: MDD, Severe Type. Intentional Overdose. Additional Dx: Insomnia. Today the patient is calm and cooperative during the assessment. At the time of discharge patient is in no imminent danger to self and others. She denies SI/HI's, A/VH's, and delusions. DDx: R/O Bipolar DO Recommendation/Plan: 1. Will rescind 1013. 2. Verbal contract for safety has been made with patient. Patient denies SI/HI's. 3. Suicide risk assessment completed. 4. Continue Prozac 20 mg PO daily for depression and Benadryl 25 mg PO HS for sleep. Discussed possible suicidality/medication induced caridad with the patient reference Prozac. Discussed generalized coping skills with the patient. Disposition: Will rescind 1013. Patient will follow-up at [facility] for PHP outpatient services. Will staff with Dr. Daryn Talbot. SUICIDE RISK ASSESSMENT III. FACTORS THAT INCREASE RISK: A.) Demographic and Substance Use Factors: No B.) Current/Recent Factors (within past 3 months): Psychosocial/Environmental Factors: Life Stressors Physical Illness: None Cognitive/Psychological Factors: None C.) Historical Factors: None D.) Diagnostic/Symptom/Treatment Factors: None E.) Acute Risk Factor Severity (DESC; MILD/MOD/SEVERE): Mild Other factors for this individual that increase risk: None IV. FACTORS THAT DECREASE RISK: Resilience/Protective Factors: Patient want to decrease her stress and stop using recreational drugs Other factors for this individual that decrease risk: Patient denies a desire to harm self V. Clinician's Formulation of Risk and Determination of level of Care: The patient is a 47 year old female who presented to the ER for overdosing on Tylenol pills. Today the patient is calm and cooperative during the assessment. She stated that she has identified some of her triggers for her depression. She has a desire to live. She stated that she want to continue her treatment in the PHP/IOP setting when discharged. She denies SI/HI's and AVH's. She denies any side effects of her medications. She stated that she will follow- up with outpatient psy/rehab services once discharged ([facility]). Since being hospitalized the patient has consistently denied the desire to harm herself. Additionally, she has become insightful about how to better address her current issues. The patient is not impaired by substance. She is able to take care of her ADLs and is not at imminent risk of harm to self or others. Consequently, it is the opinion of the treatment team that the patient is at low risk of suicide and does not meet criteria to continue an involuntary psychiatric hold. Estimation of Imminent Risk: Low due to the above explanation. Determination of Level of Care based on Suicide Risk: Outpatient follow-up. Narrative description of clinical reasoning. Given the fact that the patient is willing to engage in outpatient/rehab services care and has a supportive network (mother/father), it is reasonable to expect that the patient will seek services. Furthermore, the patient appears future oriented and denies that her intention was to end her life. She is regretful of the decision and has several things in his life to look forward to. At this current time, she is not impulsive and does not have any risk factors to increase the likelihood of her impulsive behavior. Therefore, it is reasonable to expect that the patient will engage in outpatient/rehab services which will reduce further unsafe behaviors. . Plan and Interventions based on Suicide Risk: This patient will likely be stepped down to an outpatient mental health center in the community upon discharge and follow-up within 7 days of her discharge from the hospital. VII. Discharge/After Hours Support Plan: Patient can return back to the ER, call 911 or crisis line if symptoms of depression, anxiety, suicidality return.
--- NOTE | 2018-07-14 15:27 | Progress Note ---
Assessment and Plan Assessment and plan: Tylenol Overdose 2/2 suicide Attempt -maintain 1013 and constant observer -suicide precautions at all times -for inpt psych facility now that patient is medically cleared Hypokalemia -Replaced MDD, severe -psych team following Left knee pain -?Fluids. Obtain xray. Keep elevated. Ice packs Morbid Obesity with BMI of 37,4 -lifestyle modification recommended Acute transaminitis 2/2 Tylenol overdose -levels improving, will monitor Acute Hypoxic resp failure -s/p extubation Chronic microcytic disease -H/H stable HTN -controlled on current meds Mild hypernatremia -resolved Chronic lower back pain -gabapentin started Disp: pt is medically cleared for d/c to inpt psych facility History Interval history: Patient seen and examined, in no acute distress. Reports new onset left knee pain. No fever Hospitalist Physical - Physical exam Narrative exam: VITAL SIGNS: Reviewed. GENERAL: The patient appeared well nourished and normally developed. Vital signs as documented. HEAD: No signs of head trauma. EYES: Pupils are equal. Extraocular motions intact. EARS: Hearing grossly intact. MOUTH: Oropharynx is normal. NECK: No adenopathy, no JVD. CHEST: Chest with clear breath sounds bilaterally. No wheezes, rales, or rhonchi. CARDIAC: Regular rate and rhythm. S1 and S2, without murmurs, gallops, or rubs. VASCULAR: No Edema. Peripheral pulses normal and equal in all extremities. ABDOMEN: Soft, without detectable tenderness. No sign of distention. No rebound or guarding, and no masses palpated. Bowel Sounds normal. MUSCULOSKELETAL: Good range of motion of all major joints, tender left knee. Extremities without clubbing, cyanosis or edema. NEUROLOGIC EXAM: Alert and oriented x 3. No focal sensory or strength deficits. Speech normal. Follows commands. PSYCHIATRIC: Mood normal. SKIN: No rash or lesions. - Constitutional Vitals: Temp Pulse Resp BP Pulse Ox 98.7 F 71 12 131/90 96 07/14/18 06:02 07/14/18 10:59 07/14/18 06:02 07/14/18 10:59 07/14/18 06:02 General appearance: Present: no acute distress, obese Results - Labs CBC & Chem 7: 07/08/18 03:10 07/13/18 04:51 Labs: Laboratory Last Values WBC 5.4 K/mm3 (4.5-11.0) 07/08/18 03:10 RBC 3.88 M/mm3 (3.65-5.03) 07/08/18 03:10 Hgb 9.4 gm/dl (10.1-14.3) L 07/08/18 03:10 Hct 29.7 % (30.3-42.9) L 07/08/18 03:10 MCV 77 fl (79-97) L 07/08/18 03:10 MCH 24 pg (28-32) L 07/08/18 03:10 MCHC 32 % (30-34) 07/08/18 03:10 RDW 18.6 % (13.2-15.2) H 07/08/18 03:10 Plt Count 190 K/mm3 (140-440) 07/08/18 03:10 Lymph % (Auto) 9.5 % (13.4-35.0) L 07/08/18 03:10 [place] % (Auto) 8.1 % (0.0-7.3) H 07/08/18 03:10 Eos % (Auto) 0.0 % (0.0-4.3) 07/08/18 03:10 Baso % (Auto) 0.1 % (0.0-1.8) 07/08/18 03:10 Lymph # 0.5 K/mm3 (1.2-5.4) L 07/08/18 03:10 [place] # 0.4 K/mm3 (0.0-0.8) 07/08/18 03:10 Eos # 0.0 K/mm3 (0.0-0.4) 07/08/18 03:10 Baso # 0.0 K/mm3 (0.0-0.1) 07/08/18 03:10 Seg Neutrophils % 82.3 % (40.0-70.0) H 07/08/18 03:10 Seg Neutrophils # 4.4 K/mm3 (1.8-7.7) 07/08/18 03:10 PT 14.3 Sec. (12.2-14.9) 07/09/18 19:10 INR 1.05 (0.87-1.13) 07/09/18 19:10 POC ABG pH 7.356 (7.35-7.45) 07/08/18 06:03 POC ABG pCO2 29.9 (35-45) L 07/08/18 06:03 POC ABG pO2 166 (80-105) H 07/08/18 06:03 POC ABG HCO3 16.7 07/08/18 06:03 POC ABG Total CO2 18 07/08/18 06:03 POC ABG O2 Sat 99 07/08/18 06:03 POC ABG Base Excess -9 07/08/18 06:03 FiO2 40 % 07/08/18 06:03 Sodium 143 mmol/L (137-145) 07/13/18 04:51 Potassium 4.1 mmol/L (3.6-5.0) 07/13/18 04:51 Chloride 105.2 mmol/L (98-107) 07/13/18 04:51 Carbon Dioxide 26 mmol/L (22-30) 07/13/18 04:51 Anion Gap 16 mmol/L 07/13/18 04:51 BUN 10 mg/dL (7-17) 07/13/18 04:51 Creatinine 0.5 mg/dL (0.7-1.2) L 07/13/18 04:51 Estimated GFR > 60 ml/min 07/13/18 04:51 BUN/Creatinine Ratio 20 % 07/13/18 04:51 Glucose 84 mg/dL (65-100) 07/13/18 04:51 POC Glucose 104 (70-105) 07/14/18 11:29 Lactic Acid 1.30 mmol/L (0.7-2.0) 07/08/18 03:40 Calcium 8.6 mg/dL (8.4-10.2) 07/13/18 04:51 Magnesium 2.00 mg/dL (1.7-2.3) 07/10/18 12:21 Total Bilirubin 0.30 mg/dL (0.1-1.2) 07/13/18 04:51 Direct Bilirubin < 0.2 mg/dL (0-0.2) 07/08/18 15:26 Indirect Bilirubin 0.2 mg/dL 07/08/18 15:26 AST 134 units/L (5-40) H 07/13/18 04:51 ALT 85 units/L (7-56) H 07/13/18 04:51 Alkaline Phosphatase 255 units/L (35-129) H 07/13/18 04:51 Ammonia 34.0 umol/L (25-60) 07/07/18 14:48 Total Creatine Kinase 105 units/L (30-135) 07/07/18 16:37 Troponin T < 0.010 ng/mL (0.00-0.029) 07/07/18 14:48 Total Protein 6.6 g/dL (6.3-8.2) 07/13/18 04:51 Albumin 3.7 g/dL (3.9-5) L 07/13/18 04:51 Albumin/Globulin Ratio 1.3 % 07/13/18 04:51 TSH 1.310 mlU/mL (0.270-4.200) 07/07/18 14:48 Urine Color Yellow (Yellow) 07/07/18 14:17 Urine Turbidity Slightly-cloudy (Clear) 07/07/18 14:17 Urine pH 5.0 (5.0-7.0) 07/07/18 14:17 Ur Specific [place] 1.032 (1.003-1.030) H 07/07/18 14:17 Urine Protein <15 mg/dl mg/dL (Negative) 07/07/18 14:17 Urine Glucose (UA) Neg mg/dL (Negative) 07/07/18 14:17 Urine Ketones Neg mg/dL (Negative) 07/07/18 14:17 Urine Blood Neg (Negative) 07/07/18 14:17 Urine Nitrite Neg (Negative) 07/07/18 14:17 Urine Bilirubin Neg (Negative) 07/07/18 14:17 Urine Urobilinogen < 2.0 mg/dL (<2.0) 07/07/18 14:17 Ur Leukocyte Esterase Neg (Negative) 07/07/18 14:17 Urine WBC (Auto) 5.0 /HPF (0.0-6.0) 07/07/18 14:17 Urine RBC (Auto) 1.0 /HPF (0.0-6.0) 07/07/18 14:17 Urine Bacteria (Auto) 1+ /HPF (Negative) 07/07/18 14:17 Urine Mucus Few /HPF 07/07/18 14:17 Urine HCG, Qual Negative (Negative) 07/07/18 14:17 Salicylates < 0.3 mg/dL (2.8-20.0) L 07/07/18 14:48 Urine Opiates Screen Presumptive negative 07/07/18 14:17 Urine Methadone Screen Presumptive negative 07/07/18 14:17 Acetaminophen < 5.0 ug/mL (10.0-30.0) L 07/09/18 19:10 Ur Barbiturates Screen Presumptive negative 07/07/18 14:17 Ur Phencyclidine Scrn Presumptive negative 07/07/18 14:17 Ur Amphetamines Screen Presumptive negative 07/07/18 14:17 U Benzodiazepines Scrn Presumptive negative 07/07/18 14:17 Urine Cocaine Screen Presumptive negative 07/07/18 14:17 U Marijuana (THC) Screen Presumptive negative 07/07/18 14:17 Drugs of Abuse Note Disclamer 07/07/18 14:17 Plasma/Serum Alcohol < 0.01 % (0-0.07) 07/07/18 14:48 Nutrition/Malnutrition Assess - Dietary Evaluation Nutrition/Malnutrition Findings: Nutrition Notes Start: 07/08/18 11: 51 Freq: Status: Active Protocol: Document 07/13/18 14:07 RM (Rec: 07/13/18 14:15 RM [id number]) Nutrition Notes Initial or Follow up Reassessment Current Diagnosis Diabetes,Hypertension, Respiratory Failure Other Pertinent Diagnosis acetaminophen overdose Current Diet Regular Labs/Tests POC 123, 91, 148, 111 Pertinent Medications Reviewed Height 5 ft 4 in Weight 98.2 kg [place] Body Weight (kg) 54.54 BMI 37.1 Subjective/Other Information Cardiac/Consistent CHO diet in place earlier. Regular diet ordered later today by . Pt stated that she is eating most of her meals and drinking the Ensure High Protein. Noted preferences. Pt requested more food. Agreed to provide more nonstarchy vegetables. Pt stated that she had not been previously educated on the DM diet. Reviewed carbohydrate counting. Gave handout. Percent of energy/protein needs met: 100%/100% Burn Absent Trauma Absent #2 Nutrition Diagnosis Food and nutrition-related knowledge deficit Etiology lack of prior education As Evidenced by Signs and Symptoms no prior knowledge of need for food and nutrition recommendations #1 Nutrition Diagnosis Inadequate oral intake As Evidenced by Signs and Symptoms pt meeting 100% of calorie and protein needs Diagnosis Progress(for reassessment Resolved documentation) Is patient on ventilator? No Is Patient Ambulatory and/or Out of Bed Yes REE-([place]-ambulatory/OOB) [ 9.100 NUTR.MSJOOB] Kcal/Kg value to use for calculation 15 Approximate Energy Requirements Using 1473 kcal/Kg Calculation Used for Recommendations Kcal/kg Additional Notes Pro: 81- 102 g (0.8-1 g/kg) Fluid: 1mL/kcal Nutrition Intervention Change Diet Order: Cardiac/ Consistent CHO Add Supplement/Snack (indicate name/kcal Ensure High Protein one daily /protein ) Provides kCal: 160 Provides Protein (gm) 16 Teaching Recipient Patient Teaching Methods Discussion,Handout Response to Teaching Verbalize understanding Education Handouts Provided Carbohydrate Counting Barriers to Learning No Barriers RD phone number provided Yes Patient aware of follow up options Yes Goal #1 Continue to meet at least 75% of kcal and pro needs via PO and ONS intake Anticipated Discharge Needs: Cardiac/ Consistent CHO Follow-Up By: 07/20/18 Additional Comments Follow for PO and ONS intakes
--- NOTE | 2018-07-14 20:21 | XRay Report ---
PROCEDURE: XR KNEE 3V LT TECHNIQUE: 3 views of the left knee HISTORY: joint fluid-pain COMPARISONS: FINDINGS: No acute fracture identified. No dislocation seen. There is no evidence for joint effusion. Joint [place] are within normal limits. IMPRESSION: Negative knee series. This document is electronically signed by Temo Franco MD., July 14 2018 08:19:02 PM ET
[2018-07-14] MEDS: BENADRYL PO SCH (22:00)
[2018-07-15] MEDS: PERCOCET 5/325 PO PRN ×3 (00:53→11:04)
[2018-07-15] MEDS: NEURONTIN PO SCH ×2 (06:20→13:32)
[2018-07-15] MEDS: SODIUM CHLORIDE FLUSH SYRINGE 10 ML IV SCH (09:02)
[2018-07-15] MEDS: COREG PO SCH (09:03)
[2018-07-15] MEDS: PROzac PO SCH (09:03)
[2018-07-15] MEDS: NORVASC PO SCH (09:03)
--- NOTE | 2018-07-15 12:38 | Progress Note ---
Subjective - Reason for Consult Consult date: 07/15/18 Reason for consult: Psyhciatry Follow-up - Chief Complaint Chief complaint: "Bong" Patient is a 47 y.o. female who presented to the ER for overdosing on Tylenol pills. Today the patient is calm and cooperative during the assessment. She states that she look forward to being discharged. She stated that she has a great outlook on life. She denies SI/HI's and AVH's. She denies any side effects of her medications. Mental Status Exam - Vital signs Last Vital Signs Temp 98.7 F 07/15/18 07:07 Pulse 73 07/15/18 07:07 Resp 18 07/15/18 07:07 BP 145/89 07/15/18 07:07 Pulse Ox 99 07/15/18 07:07 - Exam Narrative exam: MSE: Appearance: calm, cooperative Behavior: regular eye contact Speech: regular rate and loud tone Mood: "okay" Affect: congruent to mood Thought Process: linear Thought Content: denies SI/HI's and AVH's Motor Activity: sitting up in the bed Cognition: A/O x3 Insight: appropriate Judgment: appropriate Assessment and Plan Impression: MDD, Severe Type. Additional Dx: Insomnia. Today the patient is calm and cooperative during the assessment. The patient is no threat to self. DDx: R/O Bipolar DO Recommendation/Plan: Continue Prozac 20 mg PO daily for depression. Discussed possible suicidality/medication induced caridad with the patient reference Prozac. Discussed generalized coping skills with the patient. Psy sign off. Dispo: The patient can follow up with the [facility] for outpatient psy services. Also, the patient stated that she is willing to volunteer for [facility]. Will staff with Dr Payne.
[2018-07-15 12:41] VITALS: BP 123/67
== END 2018-07-15 14:53 | disposition home or self-care (01) | DRG 917 ==
LOC: ED 13:51 → CC1 18:03 → 3A 07-08 20:13
PROVIDERS: ADMIT Internal Medicine; ATTEND Internal Medicine
PROC: 5A1935Z Respiratory Ventilation, Less than 24 Consecutive Hours (ICD-10-PCS; principal; 2018-07-07)
PROC: 0BH17EZ Insertion of Endotracheal Airway into Trachea, Via Natural or Artificial Opening (ICD-10-PCS; 2018-07-07)
PROC: 4A033R1 Measurement of Arterial Saturation, Peripheral, Percutaneous Approach (ICD-10-PCS; 2018-07-07)
DX: T39.1X2A Poisoning by 4-Aminophenol derivatives, intentional self-harm, initial encounter (principal); J96.01 Acute respiratory failure with hypoxia; G92 Toxic encephalopathy; E87.2 Acidosis; F32.2 Major depressive disorder, single episode, severe without psychotic features; E87.0 Hyperosmolality and hypernatremia; E66.2 Morbid (severe) obesity with alveolar hypoventilation; E87.6 Hypokalemia; R74.0 Nonspecific elevation of levels of transaminase and lactic acid dehydrogenase [LDH]; M54.5 Low back pain; D63.8 Anemia in other chronic diseases classified elsewhere; M25.562 Pain in left knee; G89.4 Chronic pain syndrome; N18.9 Chronic kidney disease, unspecified; I12.9 Hypertensive chronic kidney disease with stage 1 through stage 4 chronic kidney disease, or unspecified chronic kidney disease; E11.22 Type 2 diabetes mellitus with diabetic chronic kidney disease; M19.90 Unspecified osteoarthritis, unspecified site; Z90.49 Acquired absence of other specified parts of digestive tract; Y92.89 Other specified places as the place of occurrence of the external cause; Z68.37 Body mass index [BMI] 37.0-37.9, adult; Z90.710 Acquired absence of both cervix and uterus; Z82.49 Family history of ischemic heart disease and other diseases of the circulatory system; Z91.041 Radiographic dye allergy status; Z88.5 Allergy status to narcotic agent; Z91.013 Allergy to seafood; Z79.899 Other long term (current) drug therapy; Z98.84 Bariatric surgery status
CPT/HCPCS: 36415; 36600; 70450; 71045; 80048; 80053; 80076; 80307; 80320; 81001; 81025; 82140; 82550; 82803; 82962; 83735; 84075; 84443; 84450; 84460; 84484; 85025; 85610; 87040; 93005; 93010; 94002; 94003; 99292; G0378; G0480; J0132; J0330; J0692; J1200; J1630; J2250; J2310; J2405; J3480; J7030; J7040; J7060; J7070

== ENCOUNTER 2019-06-21 11:54 | Emergency (ER) | payer MEDICARE ==
[2019-06-21 12:01] VITALS: BP 214/127
--- NOTE | 2019-06-21 12:43 | Event Note ---
ED Screening Note Date of service: 06/21/19 Time: 12:40 ED Screening Note: 48 y/o female comes for headache times a few weeks. Took Tylenol PM. Pain management provider is at [facility]. This initial assessment/diagnostic orders/clinical plan/treatment(s) is/are subject to change based on patients health status, clinical progression and re- assessment by fellow clinical providers in the ED. Further treatment and workup at subsequent clinical providers discretion. Patient/guardian urged not to elope from the ED as their condition may be serious if not clinically assessed and managed. Initial orders include:
== END 2019-06-21 14:57 | disposition left against medical advice (07) ==
LOC: ED 11:54
DX: R51 Headache (principal); Z53.21 Procedure and treatment not carried out due to patient leaving prior to being seen by health care provider

== ENCOUNTER 2020-06-13 09:59 | Observation (INO) | payer MEDICARE ==
--- NOTE | 2020-06-13 10:19 | Cat Scan Report ---
CT head without contrast INDICATION : MAIN. Altered mental status TECHNIQUE: Axial imaging performed from the skull apex through the skull base without the use of con trast. All CT scans at this location are performed using CT dose reduction for ALARA by means of aut omated exposure control. COMPARISON: None FINDINGS: Parenchyma: No acute intracranial hemorrhage or parenchymal abnormality. Ventricles: Ventricles are normal in size and appear symmetric. Soft tissues: Soft tissues including the orbits appear normal. Bones: No acute osseous abnormality. Sinuses: Sinuses and mastoid air cells are clear. IMPRESSION: No acute abnormality. Signer Name: Nakul Whelan MD Signed: 06/13/2020 10:15 AM Workstation Name: [id number]
--- NOTE | 2020-06-13 10:24 | Consultation ---
History of Present Illness - Reason for Consult Consult date: 06/13/20 stroke alert - History of Present Illness [facility] Consult [facility] Date of Service: 06/13/2020 10:03:11 Impression: I63.0 - Cerebral infarction due to thrombosis of precerebral arteries Comments/Sign-Out: 49 year old woman with past medical history of hypertension, lupus and borderline diabetes who was last normal at 23:00 when she had a fall and since then she has had stuttering speech which has been worsening also w reported right sided weakness. nihss 13. Not candidate for tpa. CTA H and N pending. Metrics: Last Known Well: 06/12/2020 23:00:00 [facility] Notification Time: 06/13/2020 10:02:37 Arrival Time: 06/13/2020 09:59:00 Stamp Time: 06/13/2020 10:03:11 Time First Login Attempt: 06/13/2020 10:07:23 Symptoms: right hemiparesis NIHSS Start Assessment Time: 06/13/2020 10:08:00 Patient is not a candidate for Alteplase/Activase. Alteplase Medical Decision: 06/13/2020 10:19:51 Patient was not deemed candidate for Alteplase/Activase thrombolytics because of Last Well Known Above 4.[address] head showed no acute hemorrhage or acute core infarct. Clinical Presentation is Suggestive of Large Vessel Occlusive Disease, Recommendations are as Follows CTA Head and Neck. ED Physician notified of diagnostic impression and management plan on 06/13/2020 10:20:59 Our recommendations are outlined below. Recommendations: Activate Stroke Protocol Admission/Order Set Stroke/Telemetry Floor Neuro Checks Bedside Swallow Eval DVT Prophylaxis IV Fluids, Normal Saline Head of Bed 30 Degrees Euglycemia and Avoid Hyperthermia (PRN Acetaminophen) Antiplatelet Therapy Recommended Routine Consultation with Inhouse Neurology for Follow up Care Sign Out: Discussed with Emergency Department Provider History of Present Illness: Patient is a 49 year old Female. Patient was brought by EMS for symptoms of right hemiparesis 49 year old woman with past medical history of hypertension, lupus and borderline diabetes who was last normal at 23:00 when she had a fall and since then she has had stuttering speech which has been worsening also w reported right sided weakness. She walks w walker at baseline. Last seen normal was beyond 4.5 hours of presentation. Past Medical History: Hypertension Diabetes Mellitus Anticoagulant use: No Antiplatelet use: No Examination: BP(122/96), Pulse(84), Blood Glucose(362) 1A: Level of Consciousness - Arouses to minor stimulation + 1 1B: Ask Month and Age - Both Questions Right + 0 1C: Blink Eyes & Squeeze Hands - Performs Both Tasks + 0 2: Test Horizontal Extraocular Movements - Partial Gaze Palsy: Can Be Overcome + 1 3: Test Visual Bateman - No Visual Loss + 0 4: Test Facial Palsy (Use Grimace if Obtunded) - Normal symmetry + 0 5A: Test Left Arm Motor Drift - Some Effort Against [place] + 2 5B: Test Right Arm Motor Drift - Some Effort Against [place] + 2 6A: Test Left Leg Motor Drift - Some Effort Against [place] + 2 6B: Test Right Leg Motor Drift - Some Effort Against [place] + 2 7: Test Limb Ataxia (FNF/Heel-Arevalo) - No Ataxia + 0 8: Test Sensation - Mild-Moderate Loss: Less Sharp/More Dull + 1 9: Test Language/Aphasia - Mild-Moderate Aphasia: Some Obvious Changes, Without Significant Limitation + 1 10: Test Dysarthria - Mild-Moderate Dysarthria: Slurring but can be understood + 1 11: Test Extinction/Inattention - No abnormality + 0 NIHSS Score: 13 Pre-Morbid Modified Ranking Scale: 4 Points = Moderately severe disability; unable to walk and attend to bodily needs without assistance Patient/Family was informed the Neurology Consult would occur via TeleHealth consult by way of interactive audio and video telecommunications and consented to receiving care in this manner. Due to the immediate potential for life-threatening deterioration due to underlying acute neurologic illness, I spent 17 minutes providing critical care. This time includes time for face to face visit via telemedicine, review of medical records, imaging studies and discussion of findings with providers, the patient and/or family. Dr Radha Moyer [facility] Case [id number] Medications and Allergies Allergies Allergy/AdvReac Type Severity Reaction Status Date / Time codeine Allergy Vomiting Verified 06/21/19 12:40 iodine Allergy Vomiting Verified 06/21/19 12:40 shellfish derived Allergy Vomiting Verified 06/21/19 12:40 acetaminophen [From Tylenol] AdvReac Vomiting Verified 06/21/19 12:40 NSAIDS (Non-Steroidal AdvReac due to Verified 06/21/19 12:40 Anti-Inflamma gastric bypass muscle relaxers AdvReac Unknown Uncoded 07/11/17 07:50 Home Medications Medication Instructions Recorded Confirmed Last Taken Type amLODIPine 10 mg PO DAILY #30 tab 07/11/17 Unknown Rx Bimatoprost [Lumigan] 1 drop OU QHS 07/08/18 07/08/18 Unknown History Travoprost [Travatan Z] 5 ml OP DAILY 07/08/18 07/08/18 Unknown History FLUoxetine [PROzac] 20 mg PO QDAY #30 capsule 07/13/18 Unknown Rx Gabapentin 300 mg PO Q8HR #14 capsule 07/13/18 Unknown Rx amLODIPine 10 mg PO QDAY #30 tablet 07/13/18 Unknown Rx carvediloL [Coreg] 12.5 mg PO BID #60 tablet 07/13/18 Unknown Rx diphenhydrAMINE [Benadryl CAP] 25 mg PO HS PRN #10 capsule 07/13/18 Unknown Rx
--- NOTE | 2020-06-13 10:52 | Emergency Department Report ---
HPI - General Chief Complaint: Neuro Symptoms/Deficit Time Seen by Provider: 06/13/20 10:02 - HPI HPI: This is a 49-year-old -[place] female presents to the emergency department via EMS from home with complaint of a generalized headache, right-gagan ed weakness, generalized pain and left foot pain after a fall. Patient's last known well time was about 2300 last night. Around that time the patient had a fall and "I fell on my left foot." She woke up this morning with severe left foot pain. The patient also says that she has generalized weakness to the point where she has difficulty bearing weight or walking but the right-sided weakness is increased compared to the left. Since waking up the patient also has some stuttering speech that she says is abnormal for her. She has a past medical history of hypertension, lupus, degenerative disc disease with a spinal stimulator. Patient has not taken anything for symptoms prior to presentation. A code stroke was initiated through EMS. ED Past Medical Hx - Past Medical History Hx Hypertension: Yes Hx Congestive Heart Failure: No Hx Diabetes: Yes Hx Liver Disease: Yes Hx Renal Disease: Yes (no dialysis) Hx Arthritis: Yes (RHEUMATROID ARTHRITIS) Hx Asthma: Yes Hx COPD: No Additional medical history: degenerative bone disorder, RA, sciatica, "I may have stomach cancer", - Surgical History Hx Cholecystectomy: Yes Additional Surgical History: hysterectomy, gastric bypass, C/S - Social History Smoking Status: Former Smoker - Medications Home Medications: Home Medications Medication Instructions Recorded Confirmed Last Taken Type DULoxetine [Cymbalta] 30 mg PO DAILY 06/13/20 06/13/20 Unknown History Ergocalciferol (Vitamin D2) 50,000 unit PO QWEEK 06/13/20 06/13/20 Unknown History [Vitamin D2] Fexofenadine HCl [Rebekah Allergy] 180 mg PO DAILY 06/13/20 06/13/20 Unknown History Gabapentin [Neurontin] 600 mg PO Q8H 06/13/20 06/13/20 Unknown History Nortriptyline [Pamelor] 25 mg PO DAILY 06/13/20 06/13/20 Unknown History cloNIDine [Catapres] 0.1 mg PO TID 06/13/20 06/13/20 Unknown History tiZANidine [Zanaflex 4mg TAB] 4 mg PO DAILY 06/13/20 06/13/20 Unknown History ED Review of Systems ROS: Stated complaint: STROKE ALERT Other details as noted in HPI Comment: All other systems reviewed and negative Constitutional: weakness. denies: fever Eyes: denies: eye pain, vision change ENT: denies: ear pain, throat pain Respiratory: denies: cough, shortness of breath Cardiovascular: denies: chest pain, palpitations Gastrointestinal: denies: abdominal pain, vomiting Genitourinary: denies: dysuria, discharge Musculoskeletal: arthralgia, myalgia. denies: joint swelling Skin: denies: rash, lesions Neurological: headache, weakness, other (Stuttering speech) Physical Exam - Physical Exam Vital Signs: Vital Signs 06/13/20 10:37 Pulse Rate 77 Respiratory 16 Rate Blood Pressure 158/104 O2 Sat by Pulse 100 Oximetry Physical Exam: GENERAL: The patient is well-developed well-nourished. HENT: Normocephalic. Atraumatic. Patient has moist mucous membranes. EYES: Extraocular motions are intact. No nystagmus. NECK: Supple. Trachea is midline. CHEST/LUNGS: Clear to auscultation. There is no respiratory distress noted. HEART/CARDIOVASCULAR: Regular. There is no tachycardia. There is no murmur. ABDOMEN: Abdomen is soft, nontender. Patient has normal bowel sounds. Morbidly obese habitus. SKIN: Skin is warm and dry. NEURO: The patient is awake, alert, and oriented. The patient is cooperative. There is some stuttering speech. There is mild bilateral upper extremity weakness. No facial asymmetry. MUSCULOSKELETAL: There is reproducible tenderness to palpation to the dorsum of the left midfoot but no obvious deformity. There is no limitation range of motion. ED Course Vital Signs 06/13/20 10:37 Pulse Rate 77 Respiratory 16 Rate Blood Pressure 158/104 O2 Sat by Pulse 100 Oximetry - Reevaluation(s) Reevaluation #1: 06/13/20 11:06 After a shared decision-making process, the patient has decided that she would like to get the CT angiography studies of the head and neck. Her allergic reaction to iodine and shellfish is mostly vomiting, but she has had an issue that sounds like angioedema in the past. We discussed pretreatment with Benadryl and Solu-Medrol, and the patient will be closely monitored. I attempted to get an ultrasound-guided peripheral line in the AC or above for the angiography studies but was unsuccessful. IV team has been paged. - Consultations Consultation #1: This patient was seen by the telemedicine neurologist, Dr. Golden, upon arrival to the emergency department and through her trip to the CT scanner. Dr. Golden give the patient an NIH stroke scale of [address] angiography of the head and neck be performed. The patient is outside of the window for TPA. The patient has informed me that she has an anaphylactic reaction to iodine and shellfish and therefore I will contact Dr. Golden about further angiography recommendations. 06/13/20 10:49 ED Medical Decision Making - Lab Data Result diagrams: 06/13/20 10:53 06/13/20 10:53 Lab Results 06/13/20 06/13/20 06/13/20 Range/Units 10:36 10:53 10:53 WBC 6.3 (4.5-11.0) K/mm3 RBC 4.58 (3.65-5.03) M/mm3 Hgb 11.5 (10.1-14.3) gm/dl Hct 36.2 (30.3-42.9) % MCV 79 (79-97) fl MCH 25 L (28-32) pg MCHC 32 (30-34) % RDW 19.0 H (13.2-15.2) % Plt Count 273 (140-440) K/mm3 Lymph % (Auto) 24.1 (13.4-35.0) % [place] % (Auto) 6.7 (0.0-7.3) % Eos % (Auto) 0.8 (0.0-4.3) % Baso % (Auto) 0.8 (0.0-1.8) % Lymph # (Auto) 1.5 (1.2-5.4) K/mm3 [place] # (Auto) 0.4 (0.0-0.8) K/mm3 Eos # (Auto) 0.1 (0.0-0.4) K/mm3 Baso # (Auto) 0.1 (0.0-0.1) K/mm3 Seg Neutrophils % 67.6 (40.0-70.0) % Seg Neutrophils # 4.3 (1.8-7.7) K/mm3 PT 12.8 (12.2-14.9) Sec. INR 0.98 (0.87-1.13) APTT 30.4 (24.2-36.6) Sec. Thrombin Time 18.1 (15.1-19.6) Sec. Sodium (137-145) mmol/L Potassium (3.6-5.0) mmol/L Chloride (98-107) mmol/L Carbon Dioxide (22-30) mmol/L Anion Gap mmol/L BUN (7-17) mg/dL Creatinine (0.6-1.2) mg/dL Estimated GFR ml/min BUN/Creatinine Ratio % Glucose (65-100) mg/dL POC Glucose 91 (70-105) mg/dL Calcium (8.4-10.2) mg/dL Total Bilirubin (0.1-1.2) mg/dL AST (5-40) units/L ALT (7-56) units/L Alkaline Phosphatase (35-129) units/L Total Creatine Kinase (30-135) units/L CK-MB (CK-2) (0.0-4.0) ng/mL CK-MB (CK-2) Rel Index (0-4) Troponin T (0.00-0.029) ng/mL Total Protein (6.3-8.2) g/dL Albumin (3.9-5) g/dL Albumin/Globulin Ratio % Urine Color (Yellow) Urine Turbidity (Clear) Urine pH (5.0-7.0) Ur Specific [place] (1.003-1.030) Urine Protein (Negative) mg/dL Urine Glucose (UA) (Negative) mg/dL Urine Ketones (Negative) mg/dL Urine Blood (Negative) Urine Nitrite (Negative) Urine Bilirubin (Negative) Urine Urobilinogen (<2.0) mg/dL Ur Leukocyte Esterase (Negative) Urine WBC (Auto) (0.0-6.0) /HPF Urine RBC (Auto) (0.0-6.0) /HPF U Epithel Cells (Auto) (0-13.0) /HPF Urine Opiates Screen Urine Methadone Screen Ur Barbiturates Screen Ur Phencyclidine Scrn Ur Amphetamines Screen U Benzodiazepines Scrn Urine Cocaine Screen U Marijuana (THC) Screen Drugs of Abuse Note Plasma/Serum Alcohol (0-0.07) % Blood Type Antibody Screen 06/13/20 06/13/2006/13/21 Range/Units 10:53 10:53 10:53 WBC (4.5-11.0) K/mm3 RBC (3.65-5.03) M/mm3 Hgb (10.1-14.3) gm/dl Hct (30.3-42.9) % MCV (79-97) fl MCH (28-32) pg MCHC (30-34) % RDW (13.2-15.2) % Plt Count (140-440) K/mm3 Lymph % (Auto) (13.4-35.0) % [place] % (Auto) (0.0-7.3) % Eos % (Auto) (0.0-4.3) % Baso % (Auto) (0.0-1.8) % Lymph # (Auto) (1.2-5.4) K/mm3 [place] # (Auto) (0.0-0.8) K/mm3 Eos # (Auto) (0.0-0.4) K/mm3 Baso # (Auto) (0.0-0.1) K/mm3 Seg Neutrophils % (40.0-70.0) % Seg Neutrophils # (1.8-7.7) K/mm3 PT (12.2-14.9) Sec. INR (0.87-1.13) APTT (24.2-36.6) Sec. Thrombin Time (15.1-19.6) Sec. Sodium 139 (137-145) mmol/L Potassium 4.4 (3.6-5.0) mmol/L Chloride 105.6 (98-107) mmol/L Carbon Dioxide 27 (22-30) mmol/L Anion Gap 11 mmol/L BUN 9 (7-17) mg/dL Creatinine 0.8 (0.6-1.2) mg/dL Estimated GFR > 60 ml/min BUN/Creatinine Ratio 11 % Glucose 105 H (65-100) mg/dL POC Glucose (70-105) mg/dL Calcium 8.7 (8.4-10.2) mg/dL Total Bilirubin 0.20 (0.1-1.2) mg/dL AST 25 (5-40) units/L ALT 13 (7-56) units/L Alkaline Phosphatase 166 H (35-129) units/L Total Creatine Kinase 149 H (30-135) units/L CK-MB (CK-2) < 1.0 (0.0-4.0) ng/mL CK-MB (CK-2) Rel Index 0.6 (0-4) Troponin T < 0.010 (0.00-0.029) ng/mL Total Protein 7.7 (6.3-8.2) g/dL Albumin 4.2 (3.9-5) g/dL Albumin/Globulin Ratio 1.2 % Urine Color (Yellow) Urine Turbidity (Clear) Urine pH (5.0-7.0) Ur Specific [place] (1.003-1.030) Urine Protein (Negative) mg/dL Urine Glucose (UA) (Negative) mg/dL Urine Ketones (Negative) mg/dL Urine Blood (Negative) Urine Nitrite (Negative) Urine Bilirubin (Negative) Urine Urobilinogen (<2.0) mg/dL Ur Leukocyte Esterase (Negative) Urine WBC (Auto) (0.0-6.0) /HPF Urine RBC (Auto) (0.0-6.0) /HPF U Epithel Cells (Auto) (0-13.0) /HPF Urine Opiates Screen Urine Methadone Screen Ur Barbiturates Screen Ur Phencyclidine Scrn Ur Amphetamines Screen U Benzodiazepines Scrn Urine Cocaine Screen U Marijuana (THC) Screen Drugs of Abuse Note Plasma/Serum Alcohol < 0.01 (0-0.07) % Blood Type O NEGATIVE Antibody Screen Negative 06/13/20 06/13/20 Range/Units 12:38 12:38 WBC (4.5-11.0) K/mm3 RBC (3.65-5.03) M/mm3 Hgb (10.1-14.3) gm/dl Hct (30.3-42.9) % MCV (79-97) fl MCH (28-32) pg MCHC (30-34) % RDW (13.2-15.2) % Plt Count (140-440) K/mm3 Lymph % (Auto) (13.4-35.0) % [place] % (Auto) (0.0-7.3) % Eos % (Auto) (0.0-4.3) % Baso % (Auto) (0.0-1.8) % Lymph # (Auto) (1.2-5.4) K/mm3 [place] # (Auto) (0.0-0.8) K/mm3 Eos # (Auto) (0.0-0.4) K/mm3 Baso # (Auto) (0.0-0.1) K/mm3 Seg Neutrophils % (40.0-70.0) % Seg Neutrophils # (1.8-7.7) K/mm3 PT (12.2-14.9) Sec. INR (0.87-1.13) APTT (24.2-36.6) Sec. Thrombin Time (15.1-19.6) Sec. Sodium (137-145) mmol/L Potassium (3.6-5.0) mmol/L Chloride (98-107) mmol/L Carbon Dioxide (22-30) mmol/L Anion Gap mmol/L BUN (7-17) mg/dL Creatinine (0.6-1.2) mg/dL Estimated GFR ml/min BUN/Creatinine Ratio % Glucose (65-100) mg/dL POC Glucose (70-105) mg/dL Calcium (8.4-10.2) mg/dL Total Bilirubin (0.1-1.2) mg/dL AST (5-40) units/L ALT (7-56) units/L Alkaline Phosphatase (35-129) units/L Total Creatine Kinase (30-135) units/L CK-MB (CK-2) (0.0-4.0) ng/mL CK-MB (CK-2) Rel Index (0-4) Troponin T (0.00-0.029) ng/mL Total Protein (6.3-8.2) g/dL Albumin (3.9-5) g/dL Albumin/Globulin Ratio % Urine Color Yellow (Yellow) Urine Turbidity Clear (Clear) Urine pH 6.0 (5.0-7.0) Ur Specific [place] 1.011 (1.003-1.030) Urine Protein <15 mg/dl (Negative) mg/dL Urine Glucose (UA) Neg (Negative) mg/dL Urine Ketones Neg (Negative) mg/dL Urine Blood Neg (Negative) Urine Nitrite Neg (Negative) Urine Bilirubin Neg (Negative) Urine Urobilinogen < 2.0 (<2.0) mg/dL Ur Leukocyte Esterase Neg (Negative) Urine WBC (Auto) 1.0 (0.0-6.0) /HPF Urine RBC (Auto) 1.0 (0.0-6.0) /HPF U Epithel Cells (Auto) 3.0 (0-13.0) /HPF Urine Opiates Screen Negative Urine Methadone Screen Negative Ur Barbiturates Screen Negative Ur Phencyclidine Scrn Negative Ur Amphetamines Screen Negative U Benzodiazepines Scrn Negative Urine Cocaine Screen Negative U Marijuana (THC) Screen Negative Drugs of Abuse Note Disclamer Plasma/Serum Alcohol (0-0.07) % Blood Type Antibody Screen - EKG Data -: EKG Interpreted by Me EKG shows normal: sinus rhythm, axis, intervals, QRS complexes, ST-T waves Rate: normal - EKG Data When compared to previous EKG there are: no significant change Interpretation: normal EKG, unchanged when compared t (07/07/18) - Radiology Data Radiology results: report reviewed, image reviewed interpreted by me: X-ray of the left foot does not show any fracture, dislocation, or any acute process. CT head without contrast INDICATION : MAIN. Altered mental status TECHNIQUE: Axial imaging performed from the skull apex through the skull base without the use of contrast. All CT scans at this location are performed using CT dose reduction for ALARA by means of automated exposure control. COMPARISON: None FINDINGS: Parenchyma: No acute intracranial hemorrhage or parenchymal abnormality. Ventricles: Ventricles are normal in size and appear symmetric. Soft tissues: Soft tissues including the orbits appear normal. Bones: No acute osseous abnormality. Sinuses: Sinuses and mastoid air cells are clear. IMPRESSION: No acute abnormality. CTA HEAD WITH CONTRAST HISTORY: Stroke COMPARISON: None. TECHNIQUE: Routine non-contrast CT Head, CTA of the head and post-contrast CT Head are performed. 3-D/MIP reformats postprocessed. All CT scans at this location are performed using CT dose reduction for ALARA by means of automated exposure control CONTRAST: 100 ml of Omnipaque 350 FINDINGS: CTA Head: Intracranial vertebral arteries: No significant abnormality. Basilar artery: No significant abnormality. Posterior cerebral arteries: No significant abnormality. Intracranial internal carotid arteries: No significant abnormality. Anterior cerebral arteries: No significant abnormality. Middle cerebral arteries: No significant abnormality. Dural venous sinuses:Not optimally opacified. No s ignificant abnormality. Additional findings: None. IMPRESSION: 1. No significant abnormality. CTA NECK WITH CONTRAST HISTORY: Stroke COMPARISON: None. TECHNIQUE: Routine CTA of the neck was performed. 3-D/MIP reformats were postprocessed. Percentage stenosis is determined by direct quantitative measurements of diseased internal carotid artery diameter compared with normal distal internal carotid artery reference segments or by criteria similar to NASCET where applicable.All CT scans at this location are performed using CT dose reduction for ALARA by means of automated exposure control CONTRAST: 100 ml of Omnipaque 350 FINDINGS: Aortic arch: No significant abnormality. Cervical vertebral arteries: No significant abnormality. Common carotid arteries: No significant abnormality. Carotid bifurcations: Normal Cervical internal carotid arteries: No significant abnormality. Additional findings: None. IMPRESSION: 1. No significant abnormality. - Medical Decision Making This patient presents as a code stroke. She woke up this morning with stuttering speech and some weakness with right sided greater than left. The patient also has left foot pain after a fall last night. This morning the patient says that she has been unable to bear weight and ambulate but not just because of the left foot pain. The patient had a CT scan of the head without contrast that does not show any bleed, shift, mass, ischemia, or any other acute process. She was seen by telemedicine neurology immediately upon arrival and had an evaluation. The patient was given an NIH stroke scale of 13 and neurology recommended and ordered CT angiography of the head and neck. The patient was not a TPA candidate as her last known well time was last night. We had to get the IV team to get appropriate access for the CT angiography studies, and the patient needed pretreatment medication to avoid any allergic reaction with the IV contrast. CT of the head and neck with angiography studies did not show any thrombosis, occlusion, significant stenosis, or any other acute process. Patient's labs have been unremarkable including CBC, metabolic panel, urinalysis, UDS, blood alcohol level. The patient will be admitted to the hospital for further evaluation and treatment and was accepted for admission by the hospitalist, Dr. Bustos. Critical Care Time: No Critical care attestation.: If time is entered above; I have spent that time in minutes in the direct care of this critically ill patient, excluding procedure time. ED Disposition Clinical Impression: Left foot pain CVA (cerebral vascular accident) Qualifiers: CVA mechanism: unspecified Qualified Code(s): I63.9 - Cerebral infarction, unspecified Hypertension Qualifiers: Hypertension type: essential hypertension Qualified Code(s): I10 - Essential (primary) hypertension Disposition: DC-09 OP ADMIT IP TO THIS HOSP Is pt being admited?: Yes Condition: Serious Time of Disposition: 18:49
[2020-06-13 11:01] LABS: Basophils # (Auto) 0.1 K/mm3 (0.0-0.1); Basophils % (Auto) 0.8 % (0.0-1.8); Eosinophils # (Auto) 0.1 K/mm3 (0.0-0.4); Eosinophils % (Auto) 0.8 % (0.0-4.3); Hematocrit 36.2 % (30.3-42.9); Hemoglobin 11.5 gm/dl (10.1-14.3); Lymphocytes # (Auto) 1.5 K/mm3 (1.2-5.4); Lymphocytes % (Auto) 24.1 % (13.4-35.0); Mean Corpuscular HGB Conc 32 % (30-34); Mean Corpuscular Volume 79 fl (79-97); Monocytes # (Auto) 0.4 K/mm3 (0.0-0.8); Monocytes % (Auto) 6.7 % (0.0-7.3); Platelet Count 273 K/mm3 (140-440); Red Blood Count 4.58 M/mm3 (3.65-5.03)
[2020-06-13 11:11] LABS: INR 0.98 (0.87-1.13)
[2020-06-13 11:12] LABS: Partial Thromboplastin Time 30.4 Sec. (24.2-36.6); Thrombin Time 18.1 Sec. (15.1-19.6)
[2020-06-13 11:18] LABS: Alanine Aminotransferase 13 units/L (7-56); Albumin 4.2 g/dL (3.9-5); BUN/Creatinine Ratio 11; Blood Urea Nitrogen 9 mg/dL (7-17); Calcium 8.7 mg/dL (8.4-10.2); Hemolysis Index 5
--- NOTE | 2020-06-13 11:47 | XRay Report ---
Left foot-2 views INDICATION: left foot pain. COMPARISON: None. IMPRESSION: No acute osseous or soft tissue abnormality. Mild degenerative arthrosis at the great toe MTP joint. Signer Name: Nakul Whelan MD Signed: 06/13/2020 11:42 AM Workstation Name: [email or web address]
[2020-06-13 11:58] LABS: Creatine Kinase MB < 1.0 ng/mL (0.0-4.0)
[2020-06-13] MEDS ORDERED: methylPREDNISolone Sod Succinate 125 MG/2 ML INJ IV ONE (11:58)
[2020-06-13] MEDS ORDERED: diphenhydrAMINE 50 MG/ML VIAL IV ONE (11:58)
[2020-06-13 13:23] LABS: Bilirubin,Urine NEG (Negative); Blood,Urine NEG (Negative); Color,Urine Yellow (Yellow); Protein,Urine <15 mg/dL mg/dL (Negative); Urobilinogen,Urine < 2.0 mg/dL (<2.0)
--- NOTE | 2020-06-13 13:30 | Cat Scan Report ---
CTA NECK WITH CONTRAST HISTORY: Stroke COMPARISON: None. TECHNIQUE: Routine CTA of the neck was performed. 3-D/MIP reformats were postprocessed. Percentage s tenosis is determined by direct quantitative measurements of diseased internal carotid artery diamete r compared with normal distal internal carotid artery reference segments or by criteria similar to NA SCET where applicable.All CT scans at this location are performed using CT dose reduction for ALARA b y means of automated exposure control CONTRAST: 100 ml of Omnipaque 350 FINDINGS: Aortic arch: No significant abnormality. Cervical vertebral arteries: No significant abnormality. Common carotid arteries: No significant abnormality. Carotid bifurcations: Normal Cervical internal carotid arteries: No significant abnormality. Additional findings: None. IMPRESSION: 1. No significant abnormality. Signer Name: Kem Brunett MD Signed: 06/13/2020 1:26 PM Workstation Name: [id number]
[2020-06-13 13:31] LABS: Amphetamine Screen,Urine Negative; Benzodiazepines Screen,Urine Negative; Cannabinoid Screen,Urine Negative; Cocaine Screen,Urine Negative; Methadone Screen,Urine Negative; Opiate Screen,Urine Negative
[2020-06-13] MEDS ORDERED: ASPIRIN 81 MG TAB CHEW PO ONE (13:40)
--- NOTE | 2020-06-13 13:41 | Cat Scan Report ---
CTA HEAD WITH CONTRAST HISTORY: Stroke COMPARISON: None. TECHNIQUE: Routine non-contrast CT Head, CTA of the head and post-contrast CT Head are performed. 3-D /MIP reformats postprocessed. All CT scans at this location are performed using CT dose reduction for ALARA by means of automated exposure control CONTRAST: 100 ml of Omnipaque 350 FINDINGS: CTA Head: Intracranial vertebral arteries: No significant abnormality. Basilar artery: No significant abnormality. Posterior cerebral arteries: No significant abnormality. Intracranial internal carotid arteries: No significant abnormality. Anterior cerebral arteries: No significant abnormality. Middle cerebral arteries: No significant abnormality. Dural venous sinuses:Not optimally opacified. No significant abnormality. Additional findings: None. IMPRESSION: 1. No significant abnormality. Signer Name: Kem Burnett MD Signed: 06/13/2020 1:36 PM Workstation Name: [id number]
[2020-06-13] MEDS ORDERED: amLODIPine 5 MG TAB PO ONE (13:50)
--- NOTE | 2020-06-13 14:09 | History and Physical Report ---
History of Present Illness Chief complaint: I feel weak History of present illness: 49 YO Female with HTN, DM, MO, SLE, OA, Asthma presents to ED for evaluation. Pt reports "I feel weak". Patient states that she was in her usual state of health at bedtime around 2200 hrs. overnight. Patient states that she experienced a fall prior to bedtime and landed on her left foot. Patient reports awakening from sleep around 0900 hrs. and was found to have right-sided weakness and slurred speech. EMS was notified and upon arrival the patient was found to have a neurologic deficit. A code stroke was called and the patient was transported to [facility] for further care and evaluation of the aforementioned symptoms. The estephania ent was seen and evaluated in the emergency department. All lab and imaging studies reviewed. Patient was found to have symptoms consistent with CVA. Patient placed in observation status and admitted to the medical floor and initiated on CVA protocol. Patient denies fever, chills, chest pain, pa lpitations, productive cough, skin rash, recent ill contacts, or known exposure to COVID-19. Prior admission on 07/07/2018 reviewed. All medication listed at time of admission has been reconciled. Past History Past Surgical History: cholecystectomy, , hysterectomy, bowel surgery, Other Social history: , lives with family. denies: smoking, alcohol abuse Family history: hypertension Medications and Allergies Allergies Allergy/AdvReac Type Severity Reaction Status Date / Time codeine Allergy Vomiting Verified 06/13/20 10:47 iodine Allergy Vomiting Verified 06/13/20 10:47 shellfish derived Allergy Vomiting Verified 06/13/20 10:47 acetaminophen [From Tylenol] AdvReac Vomiting Verified 06/13/20 10:47 NSAIDS (Non-Steroidal AdvReac due to Verified 06/13/20 10:47 Anti-Inflamma gastric bypass muscle relaxers AdvReac Unknown Uncoded 06/13/20 10:47 Home Medications Medication Instructions Recorded Confirmed Last Taken Type DULoxetine [Cymbalta] 30 mg PO DAILY 06/13/20 06/13/20 Unknown History Ergocalciferol (Vitamin D2) 50,000 unit PO QWEEK 06/13/20 06/13/20 Unknown Histo ry [Vitamin D2] Fexofenadine HCl [Rebekah Allergy] 180 mg PO DAILY 06/13/20 06/13/20 Unknown History Gabapentin [Neurontin] 600 mg PO Q8H 06/13/20 06/13/20 Unknown History Nortriptyline [Pamelor] 25 mg PO DAILY 06/13/20 06/13/20 Unknown History cloNIDine [Catapres] 0.1 mg PO TID 06/13/20 06/13/20 Unknown History tiZANidine [Zanaflex 4mg TAB] 4 mg PO DAILY 06/13/20 06/13/20 Unknown History Review of Systems Constitutional: no weight loss, no weight gain, no fever Ears, nose, mouth and throat: no ear pain, no nasal congestion, no nasal discharge Breasts: no change in shape, no swelling, no mass Cardiovascular: no chest pain, no orthopnea, no palpitations, no edema Respiratory: no cough, no cough with sputum, no excessive sputum, no hemoptysis Gastrointestinal: no abdominal pain, no nausea, no vomiting, no diarrhea, no change in bowel habits Genitourinary Female: no pelvic pain, no flank pain, no dysuria, no urinary frequency, no urgency Rectal: no pain, no incontinence, no bleeding Musculoskeletal: no neck stiffness, no neck pain, no shooting arm pain, no low back pain, no shooting leg pain Integumentary: no rash, no pruritis, no redness, no sores, no wounds Neurological: weakness, no seizures, no syncope, no change in mentation, no confusion Psychiatric: no anxiety, no memory loss, no change in sleep habits, no sleep disturbances, no insomnia, no hypersomnia Endocrine: no cold intolerance, no heat intolerance, no polyphagia, no polydipsia, no polyuria, no nocturia Hematologic/Lymphatic: no easy bleeding, no lymphadenopathy Allergic/Immunologic: no allergic rhinitis, no wheezing, no persistent infections, no anaphylaxis Exam - Constitutional Vitals: Temp Pulse Resp BP Pulse Ox 97.9 F 71 16 172/105 98 06/13/20 11:28 06/13/20 14:00 06/13/20 13:40 06/13/20 14:00 06/13/20 13:40 General appearance: Present: mild distress, well-nourished - EENT Eyes: Present: PERRL ENT: hearing intact, clear oral mucosa - Neck Neck: Present: supple, normal ROM - Respiratory Respiratory effort: normal Respiratory: bilateral: CTA - Cardiovascular Heart Sounds: Present: S1 & S2. Absent: rub, click - Extremities Extremities: pulses symmetrical, No edema Peripheral Pulses: within normal limits - Abdominal General gastrointestinal: Present: soft, non-tender, non-distended, normal bowel sounds Female genitourinary: Present: normal - Integumentary Integumentary: Present: clear, warm, dry - Musculoskeletal Musculoskeletal: right sided weakness - Psychiatric Psychiatric: appropriate mood/affect, intact judgment & insight - Neurologic Neurologic: CNII-XII intact, moves all extremities HEART Score - HEART Score Troponin: Troponin T < 0.010 ng/mL (0.00-0.029) 06/13/20 10:53 Results - Labs CBC & Chem 7: 06/13/20 10:53 06/13/20 10:53 Labs: Abnormal lab results 06/13/20 06/13/20 Range/Units 10:53 10:53 MCH 25 L (28-32) pg RDW 19.0 H (13.2-15.2) % Glucose 105 H (65-100) mg/dL Alkaline Phosphatase 166 H (35-129) units/L Total Creatine Kinase 149 H (30-135) units/L Assessment and Plan - Patient Problems (1) CVA (cerebral vascular accident) Current Visit: Yes Status: Acute Plan to address problem: CVA protocol: CT head, seizure precautions, neuro check, carotid Doppler, echocardiogram, physical therapy consulted, Occupational Therapy consulted speech therapy consulted, lipid panel, statin therapy, antiplatelet therapy (2) Obesity hypoventilation syndrome Current Visit: Yes Status: Acute Plan to address problem: Balanced diet, increase physical activity at discharge, outpatient bariatric surgery follow-up (3) Diabetes Current Visit: Yes Status: Acute Plan to address problem: Consistent carbohydrate diet, Accu-Chek, sliding scale insulin therapy, hypoglycemia protocol (4) SLE (systemic lupus erythematosus) Current Visit: Yes Status: Acute Qualifiers: Systemic lupus erythematosus organ involvement: unspecified Plan to address problem: Supportive care, outpatient rheumatology follow-up, continue medical management. (5) Hypertension Current Visit: Yes Status: Acute Qualifiers: Hypertension type: essential hypertension Qualified Code(s): I10 - Essential (primary) hypertension Plan to address problem: Monitor blood pressure every shift, continue medical management. (6) DVT prophylaxis Current Visit: No Status: Acute Plan to address problem: SCD to bilateral lower extremities while in bed, patient is ambulatory.
[2020-06-13] MEDS ORDERED: METOCLOPRAMIDE 10 MG TAB PO PRN (14:11)
[2020-06-13] MEDS ORDERED: MAGNESIUM HYDROXIDE (MOM) ORAL LIQD UDC PO PRN (14:11)
[2020-06-13] MEDS ORDERED: PROMETHAZINE 25 MG RECT SUPP PR PRN (14:11)
[2020-06-13] MEDS ORDERED: ONDANSETRON 4 MG/2 ML INJ IV PRN (14:11)
[2020-06-13] MEDS ORDERED: NON-FORMULARY EACH (Gabapentin [Neurontin] 600 MG Tablet) PO SCH (14:30)
[2020-06-13] MEDS: ACETAMINOPHEN 325 MG TAB PO PRN (21:43)
[2020-06-13] MEDS: cloNIDine 0.1 MG TAB PO SCH (21:44)
[2020-06-13] MEDS: GABAPENTIN 300 MG CAP PO SCH (21:44)
[2020-06-13] MEDS: NORTRIPTYLINE 25 MG CAP PO SCH (21:45)
[2020-06-14] MEDS: GABAPENTIN 300 MG CAP PO SCH ×3 (05:30→21:36)
[2020-06-14] MEDS: ACETAMINOPHEN 325 MG TAB PO PRN ×2 (05:31→21:37)
[2020-06-14 07:38] LABS: Chol/HDL Ratio 1.47 %
[2020-06-14] MEDS: cloNIDine 0.1 MG TAB PO SCH ×3 (08:58→21:34)
[2020-06-14] MEDS: DULoxetine 30 MG CAP PO SCH (09:00)
[2020-06-14] MEDS: tiZANidine TAB 4 MG TAB PO SCH (09:00)
[2020-06-14] MEDS: CETIRIZINE 10 MG TAB PO SCH (09:00)
[2020-06-14] MEDS: ASPIRIN 325 MG TAB PO SCH (09:00)
--- NOTE | 2020-06-14 09:43 | Progress Note ---
Assessment and Plan Assessment and plan: 49 YO Female with HTN, DM, MO, SLE, OA, Asthma presents to ED for evaluation. Pt reports "I feel weak". Patient states that she was in her usual state of health at bedtime around 2200 hrs. overnight. Patient states that she experienced a fall prior to bedtime and landed on her left foot. Patient reports awakening from sleep around 0900 hrs. and was found to have right-sided weakness and slurred speech. EMS was notified and upon arrival the patient was found to have a neurologic deficit. A code stroke was called and the patient was transported to [facility] for further care and evaluation of the aforementioned symptoms. The patient was seen and evaluated in the emergency department. All lab and imaging studies reviewed. Patient was found to have symptoms consistent with CVA. Patient placed in observation status and admitted to the medical floor and initiated on CVA protocol. Patient denies fever, chills, chest pain, palpitations, productive cough, skin rash, recent ill contacts, or known exposure to COVID-19. Prior admission on 07/07/2018 reviewed. All medication listed at time of admission has been reconciled. 06/14: Initial documentation for admission is as below. We will proceed with neurology consultation and also an MRI of the head. Will obtain an EEG to rule out any type of withdrawal symptoms as her urine drug screen was clean despite being on pain medications outpatient. She will continue to follow with her pain physician on discharge. Will likely observe her for another 24 hours and discharge in a.m. if she remains clinically stable. - Patient Problems (1) CVA (cerebral vascular accident) Current Visit: Yes Status: Acute Plan to address problem: CVA protocol: CT head, seizure precautions, neuro check, carotid Doppler, echocardiogram, physical therapy consulted, Occupational Therapy consulted speech therapy consulted, lipid panel, statin therapy, antiplatelet therapy (2) Obesity hypoventilation syndrome Current Visit: Yes Status: Acute Plan to address problem: Balanced diet, increase physical activity at discharge, outpatient bariatric surgery follow-up (3) Diabetes Current Visit: Yes Status: Acute Plan to address problem: Consistent carbohydrate diet, Accu-Chek, sliding scale insulin therapy, hypoglycemia protocol (4) SLE (systemic lupus erythematosus) Current Visit: Yes Status: Acute Qualifiers: Systemic lupus erythematosus organ involvement: unspecified Plan to address problem: Supportive care, outpatient rheumatology follow-up, continue medical management. (5) Hypertension Current Visit: Yes Status: Acute Qualifiers: Hypertension type: essential hypertension Qualified Code(s): I10 - Esse ntial (primary) hypertension Plan to address problem: Monitor blood pressure every shift, continue medical management. (6) DVT prophylaxis Current Visit: No Status: Acute Plan to address problem: SCD to bilateral lower extremities while in bed, patient is ambulatory. History Interval history: Patient seen and examined, stuttering, but also with increased frequency as she continues to speak. Informs me of all the chronic medical conditions that she has been dealing with. Talks more about her pain medication and her pain phys ician who has been making changes to her medication to find a good fit. Reviewed her records before she has been admitted to us due to suicidal ideations in the past. At that time she also talked about some family issues and that she was moving to [place]. She says she has caregivers at home. Due to her lower extremity weakness and nerve stimulator that was placed probably. Hospitalist Physical - Physical exam Narrative exam: General appearance: Present: Sitting up. During my visit the physical therapist was in place. No distress noted. Bowel started. Morbidly obese well-nourished - EENT Eyes: Present: PERRL ENT: hearing intact, clear oral mucosa - Neck Neck: Present: supple, normal ROM - Respiratory Respiratory effort: normal Respiratory: bilateral: CTA - Cardiovascular Heart Sounds: Present: S1 & S2. Absent: rub, click - Extremities Extremities: pulses symmetrical, No edema Peripheral Pulses: within normal limits - Abdominal General gastrointestinal: Present: soft, non-tender, non-distended, normal bowel sounds Female genitourinary: Present: normal - Integumentary Integumentary: Present: clear, warm, dry - Musculoskeletal Musculoskeletal: right sided weakness - Psychiatric Psychiatric: appropriate mood/affect, intact judgment & insight - Neurologic Neurologic: CNII-XII intact, moves all extremities - Constitutional Vitals: Temp Pulse Resp BP Pulse Ox 97.4 F L 86 18 148/96 100 06/14/20 08:09 06/14/20 08:09 06/14/20 08:09 06/14/20 08:58 06/14/20 08:52 General appearance: Present: mild distress, well-nourished HEART Score - HEART Score Troponin: Troponin T < 0.010 ng/mL (0.00-0.029) 02/03/21 10:53 Results - Labs CBC & Chem 7: 06/13/20 10:53 06/13/20 10:53 Labs: Laboratory Last Values WBC 6.3 K/mm3 (4.5-11.0) 06/13/20 10:53 RBC 4.58 M/mm3 (3.65-5.03) 06/13/20 10:53 Hgb 11.5 gm/dl (10.1-14.3) 06/13/20 10:53 Hct 36.2 % (30.3-42.9) 06/13/20 10:53 MCV 79 fl (79-97) 06/13/20 10:53 MCH 25 pg (28-32) L 06/13/20 10:53 MCHC 32 % (30-34) 06/13/20 10:53 RDW 19.0 % (13.2-15.2) H 06/13/20 10:53 Plt Count 273 K/mm3 (140-440) 06/13/20 10:53 Lymph % (Auto) 24.1 % (13.4-35.0) 06/13/20 10:53 [place] % (Auto) 6.7 % (0.0-7.3) 06/13/20 10:53 Eos % (Auto) 0.8 % (0.0-4.3) 06/13/20 10:53 Baso % (Auto) 0.8 % (0.0-1.8) 06/13/20 10:53 Lymph # (Auto) 1.5 K/mm3 (1.2-5.4) 06/13/20 10:53 [place] # (Auto) 0.4 K/mm3 (0.0-0.8) 06/13/20 10:53 Eos # (Auto) 0.1 K/mm3 (0.0-0.4) 06/13/20 10:53 Baso # (Auto) 0.1 K/mm3 (0.0-0.1) 06/13/20 10:53 Seg Neutrophils % 67.6 % (40.0-70.0) 06/13/20 10:53 Seg Neutrophils # 4.3 K/mm3 (1.8-7.7) 06/13/20 10:53 PT 12.8 Sec. (12.2-14.9) 06/13/20 10:53 INR 0.98 (0.87-1.13) 06/13/20 10:53 APTT 30.4 Sec. (24.2-36.6) 06/13/20 10:53 Thrombin Time 18.1 Sec. (15.1-19.6) 06/13/20 10:53 Sodium 139 mmol/L (137-145) 06/13/20 10:53 Potassium 4.4 mmol/L (3.6-5.0) 06/13/20 10:53 Chloride 105.6 mmol/L (98-107) 06/13/20 10:53 Carbon Dioxide 27 mmol/L (22-30) 06/13/20 10:53 Anion Gap 11 mmol/L 06/13/20 10:53 BUN 9 mg/dL (7-17) 06/13/20 10:53 Creatinine 0.8 mg/dL (0.6-1.2) 06/13/20 10:53 Estimated GFR > 60 ml/min 06/13/20 10:53 BUN/Creatinine Ratio 11 % 06/13/20 10:53 Glucose 105 mg/dL (65-100) H 06/13/20 10:53 POC Glucose 91 mg/dL (70-105) 06/13/20 10:36 Calcium 8.7 mg/dL (8.4-10.2) 06/13/20 10:53 Total Bilirubin 0.20 mg/dL (0.1-1.2) 06/13/20 10:53 AST 25 units/L (5-40) 06/13/20 10:53 ALT 13 units/L (7-56) 06/13/20 10:53 Alkaline Phosphatase 166 units/L (35-129) H 06/13/20 10:53 Total Creatine Kinase 149 units/L (30-135) H 06/13/20 10:53 CK-MB (CK-2) < 1.0 ng/mL (0.0-4.0) 06/13/20 10:53 CK-MB (CK-2) Rel Index 0.6 (0-4) 06/13/20 10:53 Troponin T < 0.010 ng/mL (0.00-0.029) 06/13/20 10:53 Total Protein 7.7 g/dL (6.3-8.2) 06/13/20 10:53 Albumin 4.2 g/dL (3.9-5) 06/13/20 10:53 Albumin/Globulin Ratio 1.2 % 06/13/20 10:53 Triglycerides 62 mg/dL (2-149) 06/14/20 07:04 Cholesterol 179 mg/dL (50-199) 06/14/20 07:04 LDL Cholesterol Direct 66 mg/dL (50-130) 06/14/20 07:04 HDL Cholesterol 121 mg/dL (40-59) H 06/14/20 07:04 Cholesterol/HDL Ratio 1.47 % 06/14/20 07:04 Urine Color Yellow (Yellow) 06/13/20 12:38 Urine Turbidity Clear (Clear) 06/13/20 12:38 Urine pH 6.0 (5.0-7.0) 06/13/20 12:38 Ur Specific [place] 1.011 (1.003-1.030) 06/13/20 12:38 Urine Protein <15 mg/dl mg/dL (Negative) 06/13/20 12:38 Urine Glucose (UA) Neg mg/dL (Negative) 06/13/20 12:38 Urine Ketones Neg mg/dL (Negative) 06/13/20 12:38 Urine Blood Neg (Negative) 06/13/20 12:38 Urine Nitrite Neg (Negative) 06/13/20 12:38 Urine Bilirubin Neg (Negative) 06/13/20 12:38 Urine Urobilinogen < 2.0 mg/dL (<2.0) 06/13/20 12:38 Ur Leukocyte Esterase Neg (Negative) 06/13/20 12:38 Urine WBC (Auto) 1.0 /HPF (0.0-6.0) 06/13/20 12:38 Urine RBC (Auto) 1.0 /HPF (0.0-6.0) 06/13/20 12:38 U Epithel Cells (Auto) 3.0 /HPF (0-13.0) 06/13/20 12:38 Urine Opiates Screen Negative 06/13/20 12:38 Urine Methadone Screen Negative 06/13/20 12:38 Ur Barbiturates Screen Negative 06/13/20 12:38 Ur Phencyclidine Scrn Negative 06/13/20 12:38 Ur Amphetamines Screen Negative 06/13/20 12:38 U Benzodiazepines Scrn Negative 06/13/20 12:38 Urine Cocaine Screen Negative 06/13/20 12:38 U Marijuana (THC) Screen Negative 06/13/20 12:38 Drugs of Abuse Note Disclamer 06/13/20 12:38 Plasma/Serum Alcohol < 0.01 % (0-0.07) 06/13/20 10:53 Blood Type O NEGATIVE 06/13/20 10:53 Antibody Screen Negative 06/13/20 10:53 Quevedo/IV: Voiding Method External Female Catheter IV Catheter Type [Left INT / Saline Lock Antecubital] IV Catheter Type [Left Wrist] INT / Saline Lock Active Medications - Current Medications Current Medications: Generic Name Dose Route Start Last Admin Trade Name Freq PRN Reason Stop Dose Admin Acetaminophen 650 mg 06/13/20 14:11 06/14/20 05:31 Acetaminophen 325 Mg Tab PO 650 mg Q4H PRN Administration Pain, Mild (1-3) Aspirin 325 mg 06/14/20 10:00 06/14/20 09:00 Aspirin 325 Mg Tab PO 325 mg QDAY JAZMIN Administration Atorvastatin Calcium 40 mg 06/13/20 22:00 06/13/20 21:44 Atorvastatin 40 Mg Tab PO 40 mg QHS JAZMIN Administration Bisacodyl 10 mg 06/13/20 14:11 Bisacodyl 10 Mg Rect Supp [place] QDAY PRN Constipation Cetirizine HCl 10 mg 06/14/20 10:00 06/14/20 09:00 Cetirizine 10 Mg Tab PO 10 mg DAILY JAZMIN Administration Clonidine HCl 0.1 mg 06/13/20 20:00 06/14/20 08:58 Clonidine 0.1 Mg Tab PO 0.1 mg TID JAZMIN Administration Duloxetine HCl 30 mg 06/14/20 10:00 06/14/20 09:00 Duloxetine 30 Mg Cap PO 30 mg DAILY JAZMIN Administration Ergocalciferol 50,000 unit 06/20/20 10:00 Ergocalciferol (Vit D2) 50,000 Unit Cap PO We JAZMIN Gabapentin 600 mg 06/13/20 22:00 06/14/20 05:30 Gabapentin 300 Mg Cap PO 600 mg Q8HR JAZMIN Administration Magnesium Hydroxide 30 ml 06/13/20 14:11 Magnesium Hydroxide (Mom) Oral Liqd Udc PO Q4H PRN Constipation Metoclopramide HCl 10 mg 06/13/20 14:11 Metoclopramide 10 Mg Tab PO Q6H PRN Nausea And Vomiting Nortriptyline HCl 25 mg 06/13/20 22:00 06/13/20 21:45 Nortriptyline 25 Mg Cap PO 25 mg DAILY@2200 JAZMIN Administration Ondansetron HCl 4 mg 06/13/20 14:11 Ondansetron 4 Mg/2 Ml Inj IV Q8H PRN Nausea And Vomiting Promethazine HCl 25 mg 06/13/20 14:11 Promethazine 25 Mg Rect Supp [place] Q6H PRN Nausea And Vomiting Sodium Chloride 10 ml 06/13/20 14:11 06/14/20 09:00 Sodium Chloride 0.9% 10 Ml Flush Syringe IV 10 ml PRN PRN Administration LINE FLUSH Tizanidine HCl 4 mg 06/14/20 10:00 06/14/20 09:00 Tizanidine Tab 4 Mg Tab PO 4 mg DAILY JAZMIN Administration
[2020-06-14] MEDS ORDERED: [UNRECOGNIZED DRUG - REMARK] PO SCH (10:00)
[2020-06-14] MEDS ORDERED: FLU VACC QUAD 2020-2021 (6 months +)/PF 60 0.5 ML SYRINGE IM ONE (12:00)
--- NOTE | 2020-06-14 15:47 | Consultation ---
History of Present Illness Consult date: 06/14/20 Reason for Consult: CVA Chief complaint: Slurred speech and right sided weakness History of present illness: 49 yo female with SLE, CVA in 20s, ?DVT 5 years ago, htn, dm, who presents where she fell around 7 pm on her left foot (swollen) and went to bed around 23:00. She woke up in AM and noted that she had difficulty to walk. She also notes a generalized headache w/o nausea/emesis or changes in primary senses. No acute chest pain, pressure, or palpitaitons. Past History Past Medical History: other (HTN, DM, MO, SLE, OA, Asthma ) Past Surgical History: cholecystectomy, , hysterectomy, bowel surgery, Other Social history: , lives with family. denies: smoking, alcohol abuse Family history: hypertension Medications and Allergies Allergies Allergy/AdvReac Type Severity Reaction Status Date / Time codeine Allergy Vomiting Verified 06/13/20 10:47 iodine Allergy Vomiting Verified 06/13/20 10:47 shellfish derived Allergy Vomiting Verified 06/13/20 10:47 acetaminophen [From Tylenol] AdvReac Vomiting Verified 06/13/20 10:47 NSAIDS (Non-Steroidal AdvReac due to Verified 06/13/20 10:47 Anti-Inflamma gastric bypass muscle relaxers AdvReac Unknown Uncoded 06/13/20 10:47 Home Medications Medication Instructions Recorded Confirmed Last Taken Type DULoxetine [Cymbalta] 30 mg PO DAILY 06/13/20 06/13/20 Unknown History Ergocalciferol (Vitamin D2) 50,000 unit PO QWEEK 06/13/20 06/13/20 Unknown History [Vitamin D2] Fexofenadine HCl [Rebekah Allergy] 180 mg PO DAILY 06/13/20 06/13/20 Unknown History Gabapentin [Neurontin] 600 mg PO Q8H 06/13/20 06/13/20 Unknown History Nortriptyline [Pamelor] 25 mg PO DAILY 06/13/20 06/13/20 Unknown History cloNIDine [Catapres] 0.1 mg PO TID 06/13/20 06/13/20 Unknown History tiZANidine [Zanaflex 4mg TAB] 4 mg PO DAILY 06/13/20 06/13/20 Unknown History Active Meds: Active Medications Acetaminophen (Acetaminophen 325 Mg Tab) 650 mg PO Q4H PRN PRN Reason: Pain, Mild (1-3) Last Admin: 06/14/20 05:31 Dose: 650 mg Documented by: Aspirin (Aspirin 325 Mg Tab) 325 mg PO QDAY [facility] Last Admin: 06/14/20 09:00 Dose: 325 mg Documented by: Atorvastatin Calcium (Atorvastatin 40 Mg Tab) 40 mg PO QHS [facility] Last Admin: 06/13/20 21:44 Dose: 40 mg Documented by: Bisacodyl (Bisacodyl 10 Mg Rect Supp) 10 mg [place] QDAY PRN PRN Reason: Constipation Cetirizine HCl (Cetirizine 10 Mg Tab) 10 mg PO DAILY [facility] Last Admin: 06/14/20 09:00 Dose: 10 mg Documented by: Clonidine HCl (Clonidine 0.1 Mg Tab) 0.1 mg PO TID [facility] Last Admin: 06/14/20 13:11 Dose: 0.1 mg Documented by: Duloxetine HCl (Duloxetine 30 Mg Cap) 30 mg PO DAILY [facility] Last Admin: 06/14/20 09:00 Dose: 30 mg Documented by: Ergocalciferol (Ergocalciferol (Vit D2) 50,000 Unit Cap) 50,000 unit PO [facility] Gabapentin (Gabapentin 300 Mg Cap) 600 mg PO Q8HR [facility] Last Admin: 06/14/20 13:11 Dose: 600 mg Documented by: Magnesium Hydroxide (Magnesium Hydroxide (Mom) Oral Liqd Udc) 30 ml PO Q4H PRN PRN Reason: Constipation Metoclopramide HCl (Metoclopramide 10 Mg Tab) 10 mg PO Q6H PRN PRN Reason: Nausea And Vomiting Nortriptyline HCl (Nortriptyline 25 Mg Cap) 25 mg PO DAILY@2200 [facility] Last Admin: 06/13/20 21:45 Dose: 25 mg Documented by: Ondansetron HCl (Ondansetron 4 Mg/2 Ml Inj) 4 mg IV Q8H PRN PRN Reason: Nausea And Vomiting Promethazine HCl (Promethazine 25 Mg Rect Supp) 25 mg [place] Q6H PRN PRN Reason: Nausea And Vomiting Sodium Chloride (Sodium Chloride 0.9% 10 Ml Flush Syringe) 10 ml IV PRN PRN PRN Reason: LINE FLUSH Last Admin: 06/14/20 09:00 Dose: 10 ml Documented by: Tizanidine HCl (Tizanidine Tab 4 Mg Tab) 4 mg PO DAILY JAZMIN Last Admin: 06/14/20 09:00 Dose: 4 mg Documented by: Review of Systems All systems: negative (as per HPI;) Physical Examination - Vital Signs Vital Signs: Vital Signs Pulse Resp BP Pulse Ox 77 16 158/104 100 06/13/20 10:37 06/13/20 10:37 06/13/20 10:37 06/13/20 10:37 - Physical Exam Narrative exam: Gen: nad, well-nourished; Head: normocephalic; Eyes: no gaze deviation except L eye exotropia no ptosis; ENT: normal vocalization; CVS: warm and well-perfused; Pulm: no respiratory distress; GI: non-distended, protuberant; Ext: no cyanosis at distal extremities; +edema at left ankle w/ limited rom; Skin: no acute rash or hives at distal extremities; Heme: no pathologic bruising or ecchymosis at distal extremities; Neuro: alert, oriented to name, age, month, year, no dysarthria (w/ ?stuttering), no aphasia, CN 2 - PERRL, visual rees intact, CN 3, 4, 6 - EOMI except partial L CN 3 palsy, CN 5 - facial sensation symmetric to light touch, CN 7 - facial movement symmetric, CN 8 - hearing grossly intact, CN 9, 10 - uvula midline, CN 11 - shrug symmetric, CN 12 - tongue midline; Motor - at least 4/5 in all exts except 2/5 at left ankle/toes; Sensory - light touch symmetric, Cerebellar - fnf intact, hts deferred secondary to pain, Gait - deferred secondary to fall risk; NIHSS (1a.) Level of Consciousness:0 (1b.) LOC Questions:0 (1c.) LOC Commands:0 (2.) Best Gaze:1 (3.) Visual:0 (4.) Facial Palsy:0 (5a.) Motor Arm, Left:0 (5b.) Motor Arm, Right:0 (6a.) Motor Leg, Left:0 (6b.) Motor Leg, Right:0 (7.) Limb Ataxia:0 (8.) Sensory:0 (9.) Best Language:0 (10.) Dysarthria:0 (11.) Extinction and Inattention:0 NIHSS Total Score: 1 Results - Laboratory Findings CBC and BMP: 06/13/20 10:53 06/13/20 10:53 Abnormal Lab Findings: Abnormal Labs 06/13/20 06/13/20 06/14/20 10:53 10:53 07:04 MCH 25 L RDW 19.0 H Glucose 105 H Alkaline Phosphatase 166 H Total Creatine Kinase 149 H HDL Cholesterol 121 H Assessment and Plan 49 yo female with SLE, CVA in her 20s, ?DVT 5 years ago, htn, dm, who presents with a left ankle injury sp a fall and noted slurred speech w/ right sided weakness. 1. Acute Ischemic Stroke / TIA - ASA 325 mg PO qday, MRI Brain w/o contrast if compatible w/ spinal stimulator; unremarkable CTA Head/Neck w/ & w/o contrast, pending TTEcho, confirm antiphospholipid syndrome/LDL/TSH, telemetry, SBP goal 160-200 mmHg and DBP 80-100 mmHg for now. Statin therapy for a goal LDL of 70, when patient passes swallow evaluation. PT/OT/ST/Swallow evaluation. Long-term risk-factor modification, including a strict diet/exercise regimen for secondary stroke prophylaxis. 2. Hypertension - goal SBP 160-200 mmHg and DBP 80-100 mmHg. 3. SLE / Antiphospholipid Sydrome - concern is raised based on the first stroke in her 20s and the hx of dvt and a family (mother, aunt, brother) of blood clots; if positive for antiphospholipid syndrome, long-term anticoagulation for secondary stroke prophylaxis is recommended unless contraindicated. 4. Headache, NOS - ordered MRV Head w/o contrast. 5. Left ankle injury - per primary team. Immanuel Swanson MD Neurology
[2020-06-14] MEDS: NORTRIPTYLINE 25 MG CAP PO SCH (21:37)
[2020-06-15] MEDS ORDERED: MELATONIN 5 MG TAB PO ONE (01:33)
[2020-06-15] MEDS ORDERED: oxyCODONE /ACETAMINOPHEN 5-325MG TAB PO ONE ×2 (01:48→12:48)
[2020-06-15] MEDS: GABAPENTIN 300 MG CAP PO SCH ×3 (05:57→21:39)
[2020-06-15] MEDS: cloNIDine 0.1 MG TAB PO SCH ×3 (08:59→21:40)
[2020-06-15] MEDS: tiZANidine TAB 4 MG TAB PO SCH (09:00)
[2020-06-15] MEDS: DULoxetine 30 MG CAP PO SCH (09:00)
[2020-06-15] MEDS: CETIRIZINE 10 MG TAB PO SCH (09:00)
[2020-06-15] MEDS: ASPIRIN 325 MG TAB PO SCH (09:00)
--- NOTE | 2020-06-15 12:36 | Magnetic Resonance Report ---
MRI BRAIN WITHOUT AND WITH CONTRAST, MRA HEAD WITHOUT CONTRAST INDICATION / CLINICAL INFORMATION: Stroke, altered mental status. TECHNIQUE: Multiplanar, multi sequential MRI images of the brain. Routine MRA of the head is performed. 3-D/MIP reformats postprocessed. Percentage stenosis is determined by direct quantitative measurements of di stal internal carotid artery diameter compared with normal reference segments or by criteria similar to NASCET where applicable. The patient received 15 mL IV MultiHance. COMPARISON: Head CT 06/13/2020. FINDINGS: MR BRAIN: BRAIN / INTRACRANIAL CONTENTS: No acute ischemia, acute hemorrhage, mass effect, midline shift, or hy drocephalus. No chronic infarct or significant atrophy. No significant demyelinating changes. No abn ormal intracranial enhancement. CRANIOCERVICAL JUNCTION: No significant abnormality. VASCULAR FLOW-VOIDS: No significant abnormality. ORBITS: No significant abnormality of visualized orbits. SINUSES / MASTOIDS: No significant abnormality of visualized sinuses and mastoid air cells. ADDITIONAL FINDINGS: None. MRA HEAD: Intracranial vertebral arteries: No significant abnormality. Basilar artery: No significant abnormality. Posterior cerebral arteries: No significant abnormality. Intracranial internal carotid arteries: No significant abnormality. Anterior cerebral arteries: No significant abnormality. Middle cerebral arteries: No significant abnormality. Additional findings: None. IMPRESSION: 1. No significant MR brain or MRA head abnormality. Signer Name: Gómez Cortez MD Signed: 06/15/2020 12:32 PM Workstation Name: [id number]
--- NOTE | 2020-06-15 15:18 | XRay Report ---
LEFT ANKLE 3 VIEWS INDICATION: PAIN. COMPARISON: None. IMPRESSION: There is diffuse soft tissue swelling or edema. No acute osseous abnormality or joint p athology is appreciated. LEFT FOOT 2 VIEWS INDICATION: PAIN. COMPARISON: None. IMPRESSION: No acute osseous or soft tissue abnormality. No significant DJD. Signer Name: Lionel Contreras Jr, MD Signed: 06/15/2020 3:14 PM Workstation Name: [id number]
--- NOTE | 2020-06-15 16:31 | Discharge Summary ---
Providers - Providers Date of Admission: 06/13/20 14:11 Attending physician: MUNIRA JUDGE MD 06/13/20 14:11 Occupational Therapy Evaluate and Treat [CONS] Routine Comment: Reason For Exam: Neuro deficits Physical Therapy Evaluation and Treat [CONS] Routine Comment: Reason For Exam: Neuro deficits 06/13/20 14:15 Speech Therapy Evaluation and Treat [CONS] Routine Reason For Exam: swallow eval 06/14/20 09:41 Consult to Physician [CONS] Routine Comment: Consulting Provider: TATIANA TREVINO Physician Instructions: Reason For Exam: CVA Primary care physician: [employer] SUR[employer]YOR Hospitalization Condition: Serious Disposition: DC/TX-06 HOME UNDER HOME HLTH Exam - Constitutional Vitals: Temp Pulse Resp BP Pulse Ox 98.2 F 78 20 121/74 98 06/15/20 08:40 06/15/20 13:09 06/15/20 08:40 06/15/20 13:09 06/15/20 11:42 Plan Activity: advance as tolerated, fall precautions Diet: low fat Special Instructions: record daily weights, record daily BP diary, physical therapy, occupational therapy Follow up with: PRIMARY CARE, [Primary Care Provider] - 3-5 Days Prescriptions: AtorvaSTATin [Lipitor] 40 mg PO QHS #30 tablet Aspirin [Adult Aspirin] 81 mg PO DAILY #30 tablet.
[2020-06-15 18:48] VITALS: BP 141/83
[2020-06-15] MEDS: NORTRIPTYLINE 25 MG CAP PO SCH (21:39)
[2020-06-20] MEDS ORDERED: ERGOCALCIFEROL (VIT D2) 50,000 UNIT CAP PO SCH (10:00)
== END 2020-06-15 21:58 | disposition home health service (06) ==
LOC: ED 09:59 → 4A 14:11
PROVIDERS: ADMIT Internal Medicine; ATTEND Internal Medicine
DX: I63.9 Cerebral infarction, unspecified (principal); E11.9 Type 2 diabetes mellitus without complications; E66.2 Morbid (severe) obesity with alveolar hypoventilation; M32.9 Systemic lupus erythematosus, unspecified; I10 Essential (primary) hypertension; S99.912A Unspecified injury of left ankle, initial encounter; M19.90 Unspecified osteoarthritis, unspecified site; K76.9 Liver disease, unspecified; J45.909 Unspecified asthma, uncomplicated; R29.713 NIHSS score 13; Z90.49 Acquired absence of other specified parts of digestive tract; Z90.710 Acquired absence of both cervix and uterus; Z68.41 Body mass index [BMI] 40.0-44.9, adult; Z98.891 History of uterine scar from previous surgery; Z98.890 Other specified postprocedural states; Z98.84 Bariatric surgery status; Z79.899 Other long term (current) drug therapy; Z79.82 Long term (current) use of aspirin; W18.30XA Fall on same level, unspecified, initial encounter; Y93.89 Activity, other specified; Y92.89 Other specified places as the place of occurrence of the external cause; Y99.8 Other external cause status
CPT/HCPCS: 36415; 70450; 70496; 70498; 70544; 70553; 73600; 73620; 80053; 80061; 80307; 81001; 82550; 82553; 82962; 84484; 85025; 85610; 85670; 85730; 86850; 86900; 86901; 92523; 92610; 93005; 93306; 95819; 96374; 96375; 97110; 97162; 97165; 97530; 97535; 99285; A9270; A9577; G0378; J1200; J2930; Q9967; 80320; 90686; G0480

== ENCOUNTER 2021-02-25 06:32 | Observation (INO) | payer MEDICARE ==
--- NOTE | 2021-02-25 06:51 | Emergency Department Report ---
ED Neuro Deficit HPI - General Stated Complaint: UNABLE TO WALK/UNABLE TO SPEAK Time Seen by Provider: 02/25/21 06:39 Source: patient, EMS - History of Present Illness Initial Comments: Patient is 50 years old female, wheelchair-bound with history of hypertension, diabetes, asthma and degenerative disc disease with a stimulator. Patient also reported that she had a CVA back in June of this year. Patient brought to the emergency room via EMS from home for evaluation of generalized weakness and difficulty speaking. Patient stated that she mastered 4 languages however she is unable to speak none of them now. Patient stated that she know the word but she is unable to speak. She denied any headache, neck pain, chest pain, shortness of breath, focal weakness, bowel or bladder incontinence. Patient stated that the weakness has been going on for 1 month now and the difficulty speaking started 1 week ago. - Related Data Home Medications: Home Medications Medication Instructions Recorded Confirmed Last Taken DULoxetine [Cymbalta] 30 mg PO DAILY 06/13/20 06/13/20 Unknown Ergocalciferol (Vitamin D2) 50,000 unit PO QWEEK 06/13/20 06/13/20 Unknown [Vitamin D2] Fexofenadine HCl [Rebekah Allergy] 180 mg PO DAILY 06/13/20 06/13/20 Unknown Gabapentin [Neurontin] 600 mg PO Q8H 06/13/20 06/13/20 Unknown Nortriptyline [Pamelor] 25 mg PO DAILY 06/13/20 06/13/20 Unknown cloNIDine [Catapres] 0.1 mg PO TID 06/13/20 06/13/20 Unknown tiZANidine [Zanaflex 4mg TAB] 4 mg PO DAILY 06/13/20 06/13/20 Unknown Previous Rx's Medication Instructions Recorded Last Taken Type Aspirin [Adult Aspirin] 81 mg PO DAILY #30 tablet. 06/15/20 Unknown Rx AtorvaSTATin [Lipitor] 40 mg PO QHS #30 tablet 06/15/20 Unknown Rx Allergies/Adverse Reactions: Allergies Allergy/AdvReac Type Severity Reaction Status Date / Time codeine Allergy Vomiting Verified 02/25/21 08:11 iodine Allergy Vomiting Verified 02/25/21 08:11 shellfish derived Allergy Vomiting Verified 02/25/21 08:11 acetaminophen [From Tylenol] AdvReac Vomiting Verified 02/25/21 08:11 NSAIDS (Non-Steroidal AdvReac due to Verified 02/25/21 08:11 Anti-Inflamma gastric bypass muscle relaxers AdvReac Unknown Uncoded 02/25/21 08:11 ED Review of Systems ROS: Stated complaint: UNABLE TO WALK/UNABLE TO SPEAK Other details as noted in HPI Comment: All other systems reviewed and negative Constitutional: denies: chills, fever Respiratory: denies: cough, shortness of breath, SOB with exertion, SOB at rest Cardiovascular: denies: chest pain, palpitations Gastrointestinal: denies: abdominal pain, nausea, vomiting Musculoskeletal: denies: back pain Neurological: weakness. denies: headache, numbness, paresthesias, confusion Psychiatric: depression, suicidal thoughts. denies: auditory hallucinations, visual hallucinations, homicidal thoughts ED Past Medical Hx - Past Medical History Hx Hypertension: Yes Hx CVA: Yes (TIA in her 20s) Hx Congestive Heart Failure: No Hx Diabetes: Yes Hx GERD: Yes Hx Liver Disease: Yes Hx Renal Disease: Yes Hx Arthritis: Yes Hx Asthma: Yes Hx COPD: No Additional medical history: degenerative bone disorder, RA, sciatica, "I may have stomach cancer", - Surgical History Hx Cholecystectomy: Yes Additional Surgical History: hysterectomy, gastric bypass, C/S - Social History Smoking Status: Former Smoker - Medications Home Medications: Home Medications Medication Instructions Recorded Confirmed Last Taken Type DULoxetine [Cymbalta] 30 mg PO DAILY 06/13/20 06/13/20 Unknown History Ergocalciferol (Vitamin D2) 50,000 unit PO QWEEK 06/13/20 06/13/20 Unknown H istory [Vitamin D2] Fexofenadine HCl [Rebekah Allergy] 180 mg PO DAILY 06/13/20 06/13/20 Unknown History Gabapentin [Neurontin] 600 mg PO Q8H 06/13/20 06/13/20 Unknown History Nortriptyline [Pamelor] 25 mg PO DAILY 06/13/20 06/13/20 Unknown History cloNIDine [Catapres] 0.1 mg PO TID 06/13/20 06/13/20 Unknown History tiZANidine [Zanaflex 4mg TAB] 4 mg PO DAILY 06/13/20 06/13/20 Unknown History Aspirin [Adult Aspirin] 81 mg PO DAILY #30 tablet. 06/15/20 Unknown Rx AtorvaSTATin [Lipitor] 40 mg PO QHS #30 tablet 06/15/20 Unknown Rx ED Neuro Physical Exam - General General appearance: alert, in no apparent distress Suspected Stroke: Yes - Head Head exam: Present: atraumatic, normocephalic, normal inspection - Eye Eye exam: Present: normal appearance, PERRL - ENT ENT exam: Present: normal exam, normal orophraynx, mucous membranes moist - Neck Neck exam: Present: normal inspection, full ROM. Absent: tenderness, meningi smus - Respiratory Respiratory exam: Present: normal lung sounds bilaterally - Cardiovascular Cardiovascular Exam: Present: regular rate, normal rhythm, normal heart sounds - GI/Abdominal GI/Abdominal exam: Present: soft, normal bowel sounds. Absent: distended, tenderness, guarding, rebound, rigid, organomegaly, mass, bruit, pulsatile mass - Extremities Exam Extremities exam: Present: normal inspection, full ROM, normal capillary refill. Absent: tenderness, pedal edema, joint swelling, calf tenderness - Back Exam Back exam: Present: normal inspection, full ROM. Absent: CVA tenderness (R), CVA tenderness (L) - Neurological Exam Neurological exam: Present: alert, oriented X3, CN II-XII intact - NIHSS Assessment Interval: Baseline 1a. Level of Consciousness: alert/keenly responsive 1b. LOC Questions: answers both correctly 1c. LOC Commands: performs tasks correctly 2. Best Gaze: normal 3. Visual: no visual loss 4. Facial Palsy: normal symmetrical movement 5b. Motor Arm Right: no drift 5a. Motor Arm Left: no drift 6a. Motor Leg Left: drift 6b. Motor Leg Right: drift 7. Limb Ataxia: absent 8. Sensory: normal 9. Best Language: mild/moderate aphasia 10. Dysarthria: mild/moderate dysarthria 11. Extinction/Inattention: no abnormality Total Score: 4 Stroke Severity: Minor Stroke - Psychiatric Psychiatric exam: Present: depressed, suicidal ideation. Absent: homicidal ideation - Skin Skin exam: Present: warm, intact, normal color ED Course Vital Signs 02/25/21 02/25/21 07:18 08:09 Pulse Rate 90 Respiratory 16 Rate Blood Pressure 174/108 [Left] O2 Sat by Pulse 100 99 Oximetry - Reevaluation(s) Reevaluation #1: 02/25/21 12:05 Patient stated that he is feeling very depressed and having suicidal ideation. Patient stated that since her stroke she has been wheelchair bound and unable to enjoy her life with her friends she is unable to go out with them. Patient denied any visual auditory hallucination. No homicidal ideation. Mental health consulted. - Lab Data Result diagrams: 02/25/21 07:55 02/25/21 07:55 Lab Results 02/25/21 02/25/21 02/25/21 Range/Units 07:55 07:55 07:55 WBC 5.8 (4.5-11.0) K/mm3 RBC 4.18 (3.65-5.03) M/mm3 Hgb 11.8 (10.1-14.3) gm/dl Hct 35.1 (30.3-42.9) % MCV 84 (79-97) fl MCH 28 (28-32) pg MCHC 34 (30-34) % RDW 18.3 H (13.2-15.2) % Plt Count 270 (140-440) K/mm3 Lymph % (Auto) 23.9 (13.4-35.0) % [place] % (Auto) 6.3 (0.0-7.3) % Eos % (Auto) 1.0 (0.0-4.3) % Baso % (Auto) 0.8 (0.0-1.8) % Lymph # (Auto) 1.4 (1.2-5.4) K/mm3 [place] # (Auto) 0.4 (0.0-0.8) K/mm3 Eos # (Auto) 0.1 (0.0-0.4) K/mm3 Baso # (Auto) 0.0 (0.0-0.1) K/mm3 Seg Neutrophils % 68.0 (40.0-70.0) % Seg Neutrophils # 4.0 (1.8-7.7) K/mm3 PT 13.4 (12.2-14.9) Sec. INR 0.92 (0.87-1.13) APTT 29.3 (24.2-36.6) Sec. Thrombin Time 17.5 (15.1-19.6) Sec. Sodium 140 (137-145) mmol/L Potassium 4.6 (3.6-5.0) mmol/L Chloride 102.8 (98-107) mmol/L Carbon Dioxide 23 (22-30) mmol/L Anion Gap 19 mmol/L BUN 11 (7-17) mg/dL Creatinine 0.8 (0.6-1.2) mg/dL Estimated GFR > 60 ml/min BUN/Creatinine Ratio 14 % Glucose 114 H (65-100) mg/dL POC Glucose (70-105) mg/dL Calcium 9.1 (8.4-10.2) mg/dL Total Bilirubin (0.1-1.2) mg/dL Direct Bilirubin (0-0.2) mg/dL Indirect Bilirubin mg/dL AST (5-40) units/L ALT (7-56) units/L Alkaline Phosphatase (35-129) units/L Total Creatine Kinase (30-135) units/L Troponin T < 0.010 (0.00-0.029) ng/mL NT-Pro-B Natriuret Pep (0-450) pg/mL Total Protein (6.3-8.2) g/dL Albumin (3.9-5) g/dL Albumin/Globulin Ratio % 02/25/21 02/25/21 Range/Units 07:55 08:14 WBC (4.5-11.0) K/mm3 RBC (3.65-5.03) M/mm3 Hgb (10.1-14.3) gm/dl Hct (30.3-42.9) % MCV (79-97) fl MCH (28-32) pg MCHC (30-34) % RDW (13.2-15.2) % Plt Count (140-440) K/mm3 Lymph % (Auto) (13.4-35.0) % [place] % (Auto) (0.0-7.3) % Eos % (Auto) (0.0-4.3) % Baso % (Auto) (0.0-1.8) % Lymph # (Auto) (1.2-5.4) K/mm3 [place] # (Auto) (0.0-0.8) K/mm3 Eos # (Auto) (0.0-0.4) K/mm3 Baso # (Auto) (0.0-0.1) K/mm3 Seg Neutrophils % (40.0-70.0) % Seg Neutrophils # (1.8-7.7) K/mm3 PT (12.2-14.9) Sec. INR (0.87-1.13) APTT (24.2-36.6) Sec. Thrombin Time (15.1-19.6) Sec. Sodium (137-145) mmol/L Potassium (3.6-5.0) mmol/L Chloride (98-107) mmol/L Carbon Dioxide (22-30) mmol/L Anion Gap mmol/L BUN (7-17) mg/dL Creatinine (0.6-1.2) mg/dL Estimated GFR ml/min BUN/Creatinine Ratio % Glucose (65-100) mg/dL POC Glucose 117 H (70-105) mg/dL Calcium (8.4-10.2) mg/dL Total Bilirubin 0.30 (0.1-1.2) mg/dL Direct Bilirubin < 0.2 (0-0.2) mg/dL Indirect Bilirubin 0.1 mg/dL AST 83 H (5-40) units/L ALT 48 (7-56) units/L Alkaline Phosphatase 302 H (35-129) units/L Total Creatine Kinase 73 (30-135) units/L Troponin T (0.00-0.029) ng/mL NT-Pro-B Natriuret Pep 67.98 (0-450) pg/mL Total Protein 8.1 (6.3-8.2) g/dL Albumin 4.3 (3.9-5) g/dL Albumin/Globulin Ratio 1.1 % - EKG Data -: EKG Interpreted by In - Radiology Data Radiology results: report reviewed - Medical Decision Making Patient is 50 years old female, wheelchair-bound with history of hypertension, diabetes, asthma and degenerative disc disease with a stimulator. Patient also reported that she had a CVA back in June of this year. Patient brought to the emergency room via EMS from home for evaluation of generalized weakness and difficulty speaking. Patient stated that she mastered 4 languages however she is unable to speak none of them now. Patient stated that she know the word but she is unable to speak. She denied any headache, neck pain, chest pain, shortness of breath, focal weakness, bowel or bladder incontinence. Patient stated that the weakness has been going on for 1 month now and the difficulty speaking started 1 week ago. Patient remained stable in the ER with an NIH score of 4. Symptoms has been going on for a week so no stroke alert was initiated as the patient would not be a candidate for TPA or thrombectomy. CT brain showed no acute abnormalities. Labs reviewed and is unremarkable. I discussed the patient with Dr. Woodard, she agreed to admit the patient to the hospital for further management. Critical care attestation.: If time is entered above; I have spent that time in minutes in the direct care of this critically ill patient, excluding procedure time. ED Disposition Clinical Impression: Acute CVA (cerebrovascular accident) Disposition: ADMITTED INPATIENT Is pt being admited?: Yes Condition: Stable
--- NOTE | 2021-02-25 08:05 | Cat Scan Report ---
CT HEAD WITHOUT CONTRAST INDICATION / CLINICAL INFORMATION: Stroke symptoms Pt has had a previous stroke in June 2020, pt is wheelchair bound, pt states that she is unable to speak the 4 languages that she has mastered , s he knows the words but is unable to speak them. . TECHNIQUE: Axial imaging performed from the skull apex through the skull base without the use of cont rast. Sagittal and coronal reformatted images. All CT scans at this location are performed using CT dose reduction for ALARA by means of automated exposure control. COMPARISON: CT head 06/13/2020. MR brain with and without contrast 06/15/2020. FINDINGS: CEREBRAL PARENCHYMA: No significant abnormality. No acute territorial infarct. No chronic infarct is detected. HEMORRHAGE: None. EXTRA-AXIAL SPACES: Normal in size and morphology for the patient's age. VENTRICULAR SYSTEM: Normal in size and morphology for the patient's age. MIDLINE SHIFT OR HERNIATION: None. CEREBELLUM / BRAINSTEM: No significant abnormality. CALVARIUM: No significant abnormality. ORBITS: Normal as visualized. PARANASAL SINUSES / MASTOID AIR CELLS: Normal as visualized. SOFT TISSUES of HEAD: No significant abnormality. ADDITIONAL FINDINGS: None. IMPRESSION: Unremarkable CT brain. No acute or chronic abnormality is detected. Signer Name: Lionel Contreras Jr, MD Signed: 02/25/2021 8:01 AM Workstation Name: [id number]
[2021-02-25 08:24] LABS: Basophils % (Auto) 0.8 % (0.0-1.8); Eosinophils # (Auto) 0.1 K/mm3 (0.0-0.4); Hematocrit 35.1 % (30.3-42.9); Hemoglobin 11.8 gm/dl (10.1-14.3); Lymphocytes # (Auto) 1.4 K/mm3 (1.2-5.4); Lymphocytes % (Auto) 23.9 % (13.4-35.0); Mean Corpuscular HGB Conc 34 % (30-34); Mean Corpuscular Volume 84 fl (79-97); Monocytes # (Auto) 0.4 K/mm3 (0.0-0.8); Monocytes % (Auto) 6.3 % (0.0-7.3); Platelet Count 270 K/mm3 (140-440); Red Blood Count 4.18 M/mm3 (3.65-5.03); Red Cell Distribution Width 18.3 % (13.2-15.2)
--- NOTE | 2021-02-25 08:32 | XRay Report ---
CHEST 1 VIEW INDICATION: weakness. COMPARISON: 07/07/2018 FINDINGS: Support devices: None. Heart: Heart size is at the upper limits of normal. Lungs/Pleura: Mild central pulmonary venous congestion is suspected. There is minor segmental atelect asis in the lingula. No consolidation, pleural effusion or pneumothorax. Additional findings: None. IMPRESSION: Borderline heart size. Mild central pulmonary venous congestion. No acute cardiopulmonary process id entified. Signer Name: Lionel Contreras Jr, MD Signed: 02/25/2021 8:27 AM Workstation Name: [id number]
[2021-02-25 08:33] LABS: BUN/Creatinine Ratio 14; Blood Urea Nitrogen 11 mg/dL (7-17); Calcium 9.1 mg/dL (8.4-10.2); Hemolysis Index 0
[2021-02-25 08:36] LABS: Alanine Aminotransferase 48 units/L (7-56); Albumin 4.3 g/dL (3.9-5)
[2021-02-25 08:55] LABS: INR 0.92 (0.87-1.13)
[2021-02-25 08:56] LABS: Partial Thromboplastin Time 29.3 Sec. (24.2-36.6); Thrombin Time 17.5 Sec. (15.1-19.6)
[2021-02-25 09:00] LABS: Bilirubin,Direct < 0.2 mg/dL (0-0.2)
[2021-02-25] MEDS ORDERED: MAGNESIUM HYDROXIDE (MOM) ORAL LIQD UDC PO PRN (10:08)
[2021-02-25] MEDS ORDERED: ONDANSETRON 4 MG/2 ML INJ IV PRN (10:08)
[2021-02-25] MEDS ORDERED: ACETAMINOPHEN 325 MG TAB PO PRN (10:08)
--- NOTE | 2021-02-25 10:16 | History and Physical Report ---
History of Present Illness Date of examination: 02/25/21 Date of admission: 02/25/2021 Chief complaint: weakness History of present illness: 50 YOF with a hx of CVA, HTN, and obesity who presented with complaints of weakness. She reports being confined to a wheelchair and unable to perform box chipper like she once was prior to her CVA earlier this year. She was recently admitted to [facility] with the same complaint. She was discharged home a week ago. She has also had a spasms in bilateral lower extremities and her right hand for one month. Her decline has made her depressed. During the interview, she has had thoughts of "taking all my medicines and ending it all". She also showed healed cut vieira on her forearm. Vital signs were stable. CT scan was negative for acute findings. The patient was admitted for mental health evaluation and observation. Past History Past Medical History: diabetes, hypertension Past Surgical History: Other (back surgery) Social history: , lives with family Family history: no significant family history Medications and Allergies Allergies Allergy/AdvReac Type Severity Reaction Status Date / Time baclofen Allergy Swelling Verified 02/25/21 14:23 codeine Allergy Vomiting Verified 02/25/21 08:11 iodine Allergy Rash Verified 02/25/21 14:22 shellfish derived Allergy SWELLING, Verified 02/25/21 14:23 RASH, VOMITING acetaminophen [From Tylenol] AdvReac Vomiting Verified 02/25/21 08:11 NSAIDS (Non-Steroidal AdvReac due to Verified 02/25/21 08:11 Anti-Inflamma gastric bypass Home Medications Medication Instructions Recorded Confirmed Last Taken Type DULoxetine [Cymbalta] 30 mg PO DAILY 06/13/20 02/25/21 02/25/21 05:30 History Ergocalciferol (Vitamin D2) 50,000 unit PO QWEEK 06/13/20 02/25/21 Unknown History [Vitamin D2] Nortriptyline [Pamelor] 25 mg PO DAILY 06/13/20 02/25/21 02/24/21 History cloNIDine [Catapres] 0.1 mg PO TID 06/13/20 02/25/21 02/25/21 05:30 History AtorvaSTATin [Lipitor] 40 mg PO QHS #30 tablet 06/15/20 02/25/21 02/24/21 Rx Ascorbic Acid [Vitamin C] 500 mg PO QDAY 02/25/21 02/25/21 02/25/21 05:30 History Calcium Carbonate [Calcium] 600 mg PO QDAY 02/25/21 02/25/21 02/25/21 05:30 History Cyanocobalamin (Vitamin B-12) 1,000 mcg PO QDAY 02/25/21 02/25/21 02/25/21 05:30 History [Vitamin B-12] Ferrous Sulfate [Iron 325 MG] 325 mg PO QDAY 02/25/21 02/25/21 02/25/21 05:30 History Flaxseed Oil 1,000 mg PO QDAY 02/25/21 02/25/21 02/25/21 05:30 History Gabapentin [Neurontin] 800 mg PO Q8H 02/25/21 02/25/21 02/25/21 05:30 History Magnesium Oxide 400 mg PO QDAY 02/25/21 02/25/21 02/25/21 05:30 History Melatonin [Melatonin 5MG TAB] 5 mg PO QHS 02/25/21 02/25/21 02/24/21 History Multivitamin [One-Daily 1 each PO QDAY 02/25/21 02/25/21 02/25/21 05:30 History Multi-Vitamin] Potassium 99 mg PO QDAY 02/25/21 02/25/21 02/25/21 05:30 History Active Meds: Active Medications Acetaminophen (Acetaminophen 325 Mg Tab) 650 mg PO Q4H PRN PRN Reason: Pain MILD(1-3)/Fever >100.5/LONG Aspirin (Aspirin Ec 81 Mg Tab) 81 mg PO DAILY [facility] Atorvastatin Calcium (Atorvastatin 40 Mg Tab) 40 mg PO QHS [facility] Heparin Sodium (Porcine) (Heparin 5,000 Unit/1 Ml Vial) 5,000 unit SUB-Q BID [facility] Magnesium Hydroxide (Magnesium Hydroxide (Mom) Oral Liqd Udc) 30 ml PO Q4H PRN PRN Reason: Constipation Morphine Sulfate (Morphine 4 Mg/1 Ml Inj) 4 mg IV Q4H PRN PRN Reason: Pain , Severe (7-10) Ondansetron HCl (Ondansetron 4 Mg/2 Ml Inj) 4 mg IV Q8H PRN PRN Reason: Nausea And Vomiting Oxycodone/Acetaminophen (Oxycodone /Acetaminophen 5-325mg Tab) 1 tab PO Q6H PRN PRN Reason: Pain, Moderate (4-6) Sodium Chloride (Sodium Chloride 0.9% 10 Ml Flush Syringe) 10 ml IV BID JAZMIN Sodium Chloride (Sodium Chloride 0.9% 10 Ml Flush Syringe) 10 ml IV PRN PRN PRN Reason: LINE FLUSH Review of Systems Constitutional: weakness Musculoskeletal: low back pain, muscle weakness Neurological: tremors, change in speech, spasticity Psychiatric: suicidal ideation, hopelessness Exam - Constitutional Vitals: Temp Pulse Resp BP Pulse Ox 90 16 174/108 99 02/25/21 08:09 02/25/21 08:09 02/25/21 08:09 02/25/21 08:09 General appearance: Present: no acute distress, obese - EENT Eyes: Present: PERRL ENT: hearing intact - Neck Neck: Present: supple - Respiratory Respiratory effort: normal Respiratory: bilateral: CTA - Cardiovascular Rhythm: regular Heart Sounds: Present: S1 & S2 - Extremities Extremities: pulses intact, No edema, Full ROM - Abdominal General gastrointestinal: Present: soft, non-tender, non-distended - Musculoskeletal Musculoskeletal: right sided weakness - Psychiatric Psychiatric: depressed, other (tearful) - Neurologic Neurologic: CNII-XII intact HEART Score - HEART Score Troponin: Troponin T < 0.010 ng/mL (0.00-0.029) 02/25/21 07:55 Results - Labs CBC & Chem 7: 02/25/21 07:55 02/26/21 04:00 Labs: Laboratory Last Values WBC 5.8 K/mm3 (4.5-11.0) 02/25/21 07:55 RBC 4.18 M/mm3 (3.65-5.03) 02/25/21 07:55 Hgb 11.8 gm/dl (10.1-14.3) 02/25/21 07:55 Hct 35.1 % (30.3-42.9) 02/25/21 07:55 MCV 84 fl (79-97) 02/25/21 07:55 MCH 28 pg (28-32) 02/25/21 07:55 MCHC 34 % (30-34) 02/25/21 07:55 RDW 18.3 % (13.2-15.2) H 02/25/21 07:55 Plt Count 270 K/mm3 (140-440) 02/25/21 07:55 Lymph % (Auto) 23.9 % (13.4-35.0) 02/25/21 07:55 [place] % (Auto) 6.3 % (0.0-7.3) 02/25/21 07:55 Eos % (Auto) 1.0 % (0.0-4.3) 02/25/21 07:55 Baso % (Auto) 0.8 % (0.0-1.8) 02/25/21 07:55 Lymph # (Auto) 1.4 K/mm3 (1.2-5.4) 02/25/21 07:55 [place] # (Auto) 0.4 K/mm3 (0.0-0.8) 02/25/21 07:55 Eos # (Auto) 0.1 K/mm3 (0.0-0.4) 02/25/21 07:55 Baso # (Auto) 0.0 K/mm3 (0.0-0.1) 02/25/21 07:55 Seg Neutrophils % 68.0 % (40.0-70.0) 02/25/21 07:55 Seg Neutrophils # 4.0 K/mm3 (1.8-7.7) 02/25/21 07:55 PT 13.4 Sec. (12.2-14.9) 02/25/21 07:55 INR 0.92 (0.87-1.13) 02/25/21 07:55 APTT 29.3 Sec. (24.2-36.6) 02/25/21 07:55 Thrombin Time 17.5 Sec. (15.1-19.6) 02/25/21 07:55 Sodium 140 mmol/L (137-145) 02/25/21 07:55 Potassium 4.6 mmol/L (3.6-5.0) 02/25/21 07:55 Chloride 102.8 mmol/L (98-107) 02/25/21 07:55 Carbon Dioxide 23 mmol/L (22-30) 02/25/21 07:55 Anion Gap 19 mmol/L 02/25/21 07:55 BUN 11 mg/dL (7-17) 02/25/21 07:55 Creatinine 0.8 mg/dL (0.6-1.2) 02/25/21 07:55 Estimated GFR > 60 ml/min 02/25/21 07:55 BUN/Creatinine Ratio 14 % 02/25/21 07:55 Glucose 114 mg/dL (65-100) H 02/25/21 07:55 POC Glucose 117 mg/dL (70-105) H 02/25/21 08:14 Calcium 9.1 mg/dL (8.4-10.2) 02/25/21 07:55 Total Bilirubin 0.30 mg/dL (0.1-1.2) 02/25/21 07:55 Direct Bilirubin < 0.2 mg/dL (0-0.2) 02/25/21 07:55 Indirect Bilirubin 0.1 mg/dL 02/25/21 07:55 AST 83 units/L (5-40) H 02/25/21 07:55 ALT 48 units/L (7-56) 02/25/21 07:55 Alkaline Phosphatase 302 units/L (35-129) H 02/25/21 07:55 Total Creatine Kinase 73 units/L (30-135) 02/25/21 07:55 Troponin T < 0.010 ng/mL (0.00-0.029) 02/25/21 07:55 NT-Pro-B Natriuret Pep 67.98 pg/mL (0-450) 02/25/21 07:55 Total Protein 8.1 g/dL (6.3-8.2) 02/25/21 07:55 Albumin 4.3 g/dL (3.9-5) 02/25/21 07:55 Albumin/Globulin Ratio 1.1 % 02/25/21 07:55 Assessment and Plan Assessment and plan: #Generalized weakness -chronic -CT head negative, low suspicion for new CVA/TIA or recrudescence given chronicity -Neurology consulted, recs appreciated -PT/OT/ST evaluation #Suicidal ideation -hx of previous suicide attempt w/ tylenol ingestion -expressed SI during interview with plan -1013 order, sitter -Mental Health evaluation pending #Hypertension -controlled, will continue to monitor -no need for antihypertensives at this time #Type II Diabetes Mellitus -SSI + accuchecks #Hx of CVA -continue ASA + statin Advance Directives: No VTE prophylaxis?: Chemical Plan of care discussed with patient/family: Yes
[2021-02-25 10:22] LABS: Bacteria,Urine 1+ /HPF (Negative); Bilirubin,Urine NEG (Negative); Blood,Urine NEG (Negative); Color,Urine Straw (Yellow); Protein,Urine <15 mg/dL mg/dL (Negative); Urobilinogen,Urine < 2.0 mg/dL (<2.0)
[2021-02-25 10:41] LABS: Amphetamine Screen,Urine Negative; Benzodiazepines Screen,Urine Negative; Cannabinoid Screen,Urine Negative; Cocaine Screen,Urine Negative; Methadone Screen,Urine Negative; Opiate Screen,Urine Negative
[2021-02-25 11:07] LABS: Chol/HDL Ratio 1.86 %
--- NOTE | 2021-02-25 11:59 | Consultation ---
History of Present Illness Consult date: 02/25/21 Reason for Consult: generalized weakness and speech difficulty started one week ago. History of present illness: Patient is 50 years old female, wheelchair-bound with history of hypertension, diabetes, asthma and degenerative disc disease with a stimulator. Patient also reported that she had a CVA back in June of this year. Patient brought to the emergency room via EMS from home for evaluation of generalized weakness and difficulty speaking. Patient stated that she mastered 4 languages however she is unable to speak none of them now. Patient stated that she know the word but she is unable to speak. She is complaining of headache and asked for pain medication No neck pain, chest pain, shortness of breath, bowel or bladder incontinence. Patient stated that the weakness has been going on for 1 month now and the difficulty speaking started 1 week ago. According to her she is diagnosed with Arachnoiditis in lumber region over 5 years ago and she is on wheel chair since then . she is depressed due to her situation and is crying she wants to she is describing headache as throbbing pain and requested pain medication - Related Data Home Medications: Home Medications Medication Instructions Recorded Confirmed Last Taken DULoxetine [Cymbalta] 30 mg PO DAILY 06/13/20 06/13/20 Unknown Ergocalciferol (Vitamin D2) 50,000 unit PO QWEEK 06/13/20 06/13/20 Unknown [Vitamin D2] Fexofenadine HCl [Rebekah Allergy] 180 mg PO DAILY 06/13/20 06/13/20 Unknown Gabapentin [Neurontin] 600 mg PO Q8H 06/13/20 06/13/20 Unknown Nortriptyline [Pamelor] 25 mg PO DAILY 06/13/20 06/13/20 Unknown cloNIDine [Catapres] 0.1 mg PO TID 06/13/20 06/13/20 Unknown tiZANidine [Zanaflex 4mg TAB] 4 mg PO DAILY 06/13/20 06/13/20 Unknown Previous Rx's Medication Instructions Recorded Last Taken Type Aspirin [Adult Aspirin] 81 mg PO DAILY #30 tablet. 06/15/20 Unknown Rx AtorvaSTATin [Lipitor] 40 mg PO QHS #30 tablet 06/15/20 Unknown Rx Allergies/Adverse Reactions: Allergies Allergy/AdvReac Type Severity Reaction Status Date / Time codeine Allergy Vomiting Verified 02/25/21 08:11 iodine Allergy Vomiting Verified 02/25/21 08:11 shellfish derived Allergy Vomiting Verified 02/25/21 08:11 acetaminophen [From Tylenol] AdvReac Vomiting Verified 02/25/21 08:11 NSAIDS (Non-Steroidal AdvReac due to Verified 02/25/21 08:11 Anti-Inflamma gastric bypass muscle relaxers AdvReac Unknown Uncoded 02/25/21 08:11 ED Review of Systems ROS: Stated complaint: UNABLE TO WALK/UNABLE TO SPEAK Other details as noted in HPI Comment: All other systems reviewed and negative Constitutional: denies: chills, fever Respiratory: denies: cough, shortness of breath, SOB with exertion, SOB at rest Cardiovascular: denies: chest pain, palpitations Gastrointestinal: denies: abdominal pain, nausea, vomiting Musculoskeletal: denies: back pain Neurological: weakness. denies: headache, numbness, paresthesias, confusion ED Past Medical Hx - Past Medical History Hx Hypertension: Yes Hx CVA: Yes (TIA in her 20s) Hx Congestive Heart Failure: No Hx Diabetes: Yes Hx GERD: Yes Hx Liver Disease: Yes Hx Renal Disease: Yes Hx Arthritis: Yes Hx Asthma: Yes Hx COPD: No Additional medical history: degenerative bone disorder, RA, sciatica, "I may have stomach cancer", - Surgical History Hx Cholecystectomy: Yes Additional Surgical History: hysterectomy, gastric bypass, C/S - Social History Smoking Status: Former Smoker - Medications Home Medications: Home Medications Medication Instructions Recorded Confirmed Last Taken Type DULoxetine [Cymbalta] 30 mg PO DAILY 06/13/20 06/13/20 Unknown History Ergocalciferol (Vitamin D2) 50,000 unit PO QWEEK 06/13/20 06/13/20 Unknown History [Vitamin D2] Fexofenadine HCl [Rebekah Allergy] 180 mg PO DAILY 06/13/20 06/13/20 Unknown History Gabapentin [Neurontin] 600 mg PO Q8H 06/13/20 06/13/20 Unknown History Nortriptyline [Pamelor] 25 mg PO DAILY 06/13/20 06/13/20 Unknown History cloNIDine [Catapres] 0.1 mg PO TID 06/13/20 06/13/20 Unknown History tiZANidine [Zanaflex 4mg TAB] 4 mg PO DAILY 06/13/20 06/13/20 Unknown History Aspirin [Adult Aspirin] 81 mg PO DAILY #30 tablet. 06/15/20 Unknown Rx AtorvaSTATin [Lipitor] 40 mg PO QHS #30 tablet 06/15/20 Unknown Rx ED Neuro Physical Exam - General General appearance: alert, in no apparent distress Suspected Stroke: Yes - Head Head exam: Present: atraumatic, normocephalic, normal inspection - Eye Eye exam: Present: normal appearance, PERRL - ENT ENT exam: Present: normal exam, normal orophraynx, mucous membranes moist - Neck Neck exam: Present: normal inspection, full ROM. Absent: tenderness, meningismus - Respiratory Respiratory exam: Present: normal lung sounds bilaterally - Cardiovascular Cardiovascular Exam: Present: regular rate, normal rhythm, normal heart sounds - GI/Abdominal GI/Abdominal exam: Present: soft, normal bowel sounds. Absent: distended, tenderness, guarding, rebound, rigid, organomegaly, mass, bruit, pulsatile mass - Extremities Exam Extremities exam: Present: normal inspection, full ROM, normal capillary refill. Absent: tenderness, pedal edema, joint swelling, calf tenderness - Back Exam Back exam: Present: normal inspection, full ROM. Absent: CVA tenderness (R), CVA tenderness (L) Medications and Allergies Allergies Allergy/AdvReac Type Severity Reaction Status Date / Time codeine Allergy Vomiting Verified 02/25/21 08:11 iodine Allergy Vomiting Verified 02/25/21 08:11 shellfish derived Allergy Vomiting Verified 02/25/21 08:11 acetaminophen [From Tylenol] AdvReac Vomiting Verified 02/25/21 08:11 NSAIDS (Non-Steroidal AdvReac due to Verified 02/25/21 08:11 Anti-Inflamma gastric bypass muscle relaxers AdvReac Unknown Uncoded 02/25/21 08:11 Home Medications Medication Instructions Recorded Confirmed Last Taken Type DULoxetine [Cymbalta] 30 mg PO DAILY 06/13/20 06/13/20 Unknown History Ergocalciferol (Vitamin D2) 50,000 unit PO QWEEK 06/13/20 06/13/20 Unknown History [Vitamin D2] Fexofenadine HCl [Rebekah Allergy] 180 mg PO DAILY 06/13/20 06/13/20 Unknown History Gabapentin [Neurontin] 600 mg PO Q8H 06/13/20 06/13/20 Unknown History Nortriptyline [Pamelor] 25 mg PO DAILY 06/13/20 06/13/20 Unknown History cloNIDine [Catapres] 0.1 mg PO TID 06/13/20 06/13/20 Unknown History tiZANidine [Zanaflex 4mg TAB] 4 mg PO DAILY 06/13/20 06/13/20 Unknown History Aspirin [Adult Aspirin] 81 mg PO DAILY #30 tablet. 06/15/20 Unknown Rx AtorvaSTATin [Lipitor] 40 mg PO QHS #30 tablet 06/15/20 Unknown Rx Active Meds: Active Medications Acetaminophen (Acetaminophen 325 Mg Tab) 650 mg PO Q4H PRN PRN Reason: Pain MILD(1-3)/Fever >100.5/LONG Aspirin (Aspirin Ec 81 Mg Tab) 81 mg PO DAILY JAZMIN Atorvastatin Calcium (Atorvastatin 40 Mg Tab) 40 mg PO QHS JAZMIN Heparin Sodium (Porcine) (Heparin 5,000 Unit/1 Ml Vial) 5,000 unit SUB-Q BID JAZMIN Magnesium Hydroxide (Magnesium Hydroxide (Mom) Oral Liqd Udc) 30 ml PO Q4H PRN PRN Reason: Constipation Morphine Sulfate (Morphine 4 Mg/1 Ml Inj) 4 mg IV Q4H PRN PRN Reason: Pain , Severe (7-10) Ondansetron HCl (Ondansetron 4 Mg/2 Ml Inj) 4 mg IV Q8H PRN PRN Reason: Nausea And Vomiting Oxycodone/Acetaminophen (Oxycodone /Acetaminophen 5-325mg Tab) 1 tab PO Q6H PRN PRN Reason: Pain, Moderate (4-6) Sodium Chloride (Sodium Chloride 0.9% 10 Ml Flush Syringe) 10 ml IV BID JAZMIN Sodium Chloride (Sodium Chloride 0.9% 10 Ml Flush Syringe) 10 ml IV PRN PRN PRN Reason: LINE FLUSH Physical Examination - Vital Signs Vital Signs: Vital Signs Pulse Ox 100 02/25/21 07:18 - Constitutional General appearance: uncomfortable - EENT EENT: Present: PERRL, mucous membranes moist - Respiratory Respiratory: Present: chest non-tender, lungs clear, rhonchi - Cardiovascular Cardiovascular: Present: regular rate, normal S1, normal S2 Extremities: Present: no peripheral edema bilatateraly, no clubbing, cyanosis - Gastrointestinal Gastrointestinal: Present: normoactive bowel sounds - Integumentary Integumentary: Present: normal - Neurologic Cranial nerve examination: PERRL, intact Speech examination: intact Detailed motor examination: other (she is complaining of diffuse weakness , moving her arm induce pain as well the legs with difficulty to assess exact s pam garvin is doen no clonus,) - Psychiatric Psychiatric: Present: depressed, other (wants to !!) - Level of Consciousness 1a. Level of Consciousness: alert/keenly responsive - LOC Questions 1b. LOC Questions: answers both correctly - LOC Command 1c. LOC Commands: performs tasks correctly - Best Gaze 2. Best Gaze: normal - Visual 3. Visual: no visual loss - Facial Palsy 4. Facial Palsy: normal symmetrical movement - Motor Arm 5a. Motor Arm Left: no drift 5b. Motor Arm Right: no drift - Motor Leg 6a. Motor Leg Left: some gravity effort 6b. Motor Leg Right: some gravity effort - Limb Ataxia 7. Limb Ataxia: absent - Sensory 8. Sensory: normal - Best Language 9. Best Language: no aphasia (she is with hesitatnt speech which fluctuate in severity , no clear aphasia or words finding impairment , comprehension is intact ,) Results - Laboratory Findings CBC and BMP: 02/25/21 07:55 02/25/21 07:55 Abnormal Lab Findings: Abnormal Labs 02/25/21 02/25/21 02/25/21 07:55 07:55 07:55 RDW 18.3 H Glucose 114 H POC Glucose AST 83 H Alkaline Phosphatase 302 H Cholesterol HDL Cholesterol 02/25/21 02/25/21 08:14 10:28 RDW Glucose POC Glucose 117 H AST Alkaline Phosphatase Cholesterol 207 H HDL Cholesterol 111 H Assessment and Plan - Medical Decision Making #Patient is 50 years old female, wheelchair-bound for few years due to arachnoiditis as per pt. -according to her she is unable to walk and is with significant back pain -had spinal stimulator for few years -CT brain is unremarkable -On neurontine and muscles relaxant # history of hypertension, diabetes, asthma and degenerative disc disease with a stimulator. # Patient also reported that she had a CVA back in June of this year. # difficulty speaking. Patient stated that she mastered 4 languages however she is unable to speak none of them now. Patient stated that she know the word but she is unable to speak. She denied any headache, neck pain, chest pain, shortn ess of breath, focal weakness, bowel or bladder incontinence. Patient stated that the difficulty speaking started 1 week ago. Exam showed no sign of aphasia but fluctuating hesitant speech # pt. voiced being depressed and wants to # Complaint of headache and requested pain medication # pt. is with spinal stimulator # Morbid obesity PLAN 1- Psychiatry evaluation and for now recommend sitter in the room until cleared by psychiatry 2- maintain her home medications 3- No sign to suggest aphasia or acute CVA on exam today 4- Pt therapy evaluation 5- she can not have MRI due to spinal stimulator 6- Send for CPK,ESR,ELISE ,B12,A1C 7- SQ heparine 8- ASA 81 mg and Lipitor 40 mg daily and send for lipid profil 9- better control of BP.<150/80 will follow as needed
[2021-02-25] MEDS: HEPARIN 5,000 UNIT/1 ML VIAL SUB-Q SCH ×2 (12:00→21:42)
[2021-02-25] MEDS: ASPIRIN EC 81 MG TAB PO SCH (12:45)
[2021-02-25] MEDS: MORPHINE 4 MG/1 ML INJ IV PRN ×3 (14:37→23:46)
[2021-02-26] MEDS: MORPHINE 4 MG/1 ML INJ IV PRN ×2 (03:55→08:44)
[2021-02-26 05:19] LABS: Blood Urea Nitrogen 8 mg/dL (7-17); Calcium 8.8 mg/dL (8.4-10.2); Hemolysis Index 0
[2021-02-26 05:26] LABS: BUN/Creatinine Ratio 11
[2021-02-26] MEDS: ASPIRIN EC 81 MG TAB PO SCH (09:30)
[2021-02-26] MEDS: HEPARIN 5,000 UNIT/1 ML VIAL SUB-Q SCH ×2 (09:31→20:59)
--- NOTE | 2021-02-26 10:55 | Electrocardiograph Report ---
[facility] Test Date: 2021-02-25 Test Time: 07:59:28 Pat Name: JERRY JIMENEZ Department: Room: A370 Gender: F Cloth Sponger: ANGEL : 1970 Requested By: FRANTZ GERBER Order Number: [id number] Reading MD: Clifford Allan Measurements Intervals [place] Rate: 86 P: 67 VA: 193 QRS: -21 QRSD: 110 T: 9 QT: 385 QTc: 460 Interpretive Statements Sinus rhythm Probable left ventricular hypertrophy No previous ECG available for comparison Electronically Signed On 02-26-2021 10:55:14 EDT by Clifford Allan
--- NOTE | 2021-02-26 11:13 | Consultation ---
History of Present Illness - Reason for Consult Consult date: 02/26/21 Reason for consult: suicidal ideation - History of Present Psychiatric Illness Erwin Rivera is a 50 year old female with history of depression. In my interview with the patient, she reports being depressed since about 2 weeks now; states symptoms such as helplessness, anger, and insomnia. She states being naive to psychotropic medications. The patient endorses suicidal ideation, when asked about her plan she states " I won't tell you my plan, I'm not stupid." The patient denies homicidal ideation and denies hallucinations. PAST PSYCHIATRIC HISTORY Diagnoses:Depression Suicide attempts or Self-harm behavior: Yes via OD on pills Prior psychiatric hospitalizations:Yes Substance Abuse history: Denies Previous psychiatric medications tried: Denies Outpatient treatment: Denied SOCIAL HISTORY Marital Status: Living Arrangements: Lives with Employment Status: Disability Access to guns/weapons: Denied Education: Bachelors History of Abuse: Denied Legal History: None reported REVIEW OF SYSTEMS Constitutional: Negative for weight loss ENT: Negative for stridor Respiratory: Negative for cough or hemoptysis All other systems reviewed and are negative MENTAL STATUS EXAMINATION General Appearance and Behavior: Age appropriate, dressed appropriately, calm and cooperative Cooperation: Cooperative Psychomotor Behavior: psychomotor normal Mood: "depressed" Affect and affective range: congruent with stated mood Thought Process: Tangential Thought Content: Suicidal Speech: Normal volume, Regular rate and rhythm, Intellectual Functioning: Average Suicidal Ideation: Yes Homicidal Ideation: Denies Hallucinations:Denies Delusions: None elicited Impulse Control: Questionable Insight and Judgment: limited insight and poor judgment, Memory: Normal Attention: divided Orientation: Alert, oriented Assessment and Plan (1)Major depressive disorder, recurrent, severe- F33.2 (2) Treatment plan Start Zoloft 25 mgpo daily Start Trazodone 50mg po QHS Continue previous prescribed meds Risks, benefits and alternatives of medications discussed with the patient, questions answered and consent obtained from patient. PSYCHOTHERAPY: Supportive psychotherapy provided MEDICAL: Per primary team DELIRIUM PRECAUTIONS: Please re-orient patient frequently, keep lights on during the day, and minimize benzodiazepines and opiates as these medications could worsen patient's confusion. APPLICATION DEVELOPMENT PROJECT MANAGER: Per medical team DISPOSITION: Do not recommend acute inpatient psychiatric hospitalization. Will follow for medication management Thank you for the consult. Please contact with any questions and/or concerns. Case staffed with Dr. Rogers Medications and Allergies Allergies Allergy/AdvReac Type Severity Reaction Status Date / Time baclofen Allergy Swelling Verified 02/25/21 14:23 codeine Allergy Vomiting Verified 02/25/21 08:11 iodine Allergy Rash Verified 02/25/21 14:22 shellfish derived Allergy SWELLING, Verified 02/25/21 14:23 RASH, VOMITING acetaminophen [From Tylenol] AdvReac Vomiting Verified 02/25/21 08:11 NSAIDS (Non-Steroidal AdvReac due to Verified 02/25/21 08:11 Anti-Inflamma gastric bypass Home Medications Medication Instructions Recorded Confirmed Last Taken Type DULoxetine [Cymbalta] 30 mg PO DAILY 06/13/20 02/25/21 02/25/21 05:30 History Ergocalciferol (Vitamin D2) 50,000 unit PO QWEEK 06/13/20 02/25/21 Unknown History [Vitamin D2] Nortriptyline [Pamelor] 25 mg PO DAILY 06/13/20 02/25/21 02/24/21 History cloNIDine [Catapres] 0.1 mg PO TID 06/13/20 02/25/21 02/25/21 05:30 History AtorvaSTATin [Lipitor] 40 mg PO QHS #30 tablet 06/15/20 02/25/21 02/24/21 Rx Ascorbic Acid [Vitamin C] 500 mg PO QDAY 02/25/21 02/25/21 02/25/21 05:30 History Calcium Carbonate [Calcium] 600 mg PO QDAY 02/25/21 02/25/21 02/25/21 05:30 History Cyanocobalamin (Vitamin B-12) 1,000 mcg PO QDAY 02/25/21 02/25/21 02/25/21 05:30 History [Vitamin B-12] Ferrous Sulfate [Iron 325 MG] 325 mg PO QDAY 02/25/21 02/25/21 02/25/21 05:30 History Flaxseed Oil 1,000 mg PO QDAY 02/25/21 02/25/21 02/25/21 05:30 History Gabapentin [Neurontin] 800 mg PO Q8H 02/25/21 02/25/21 02/25/21 05:30 History Magnesium Oxide 400 mg PO QDAY 02/25/21 02/25/21 02/25/21 05:30 History Melatonin [Melatonin 5MG TAB] 5 mg PO QHS 02/25/21 02/25/21 02/24/21 History Multivitamin [One-Daily 1 each PO QDAY 02/25/21 02/25/21 02/25/21 05:30 History Multi-Vitamin] Potassium 99 mg PO QDAY 02/25/21 02/25/21 02/25/21 05:30 History Active Meds: Active Medications Acetaminophen (Acetaminophen 325 Mg Tab) 650 mg PO Q4H PRN PRN Reason: Pain MILD(1-3)/Fever >100.5/LONG Aspirin (Aspirin Ec 81 Mg Tab) 81 mg PO DAILY [facility] Last Admin: 02/26/21 09:30 Dose: 81 mg Documented by: Atorvastatin Calcium (Atorvastatin 40 Mg Tab) 40 mg PO QHS [facility] Last Admin: 02/25/21 21:42 Dose: 40 mg Documented by: Heparin Sodium (Porcine) (Heparin 5,000 Unit/1 Ml Vial) 5,000 unit SUB-Q BID [facility] Last Admin: 02/26/21 09:31 Dose: 5,000 unit Documented by: Magnesium Hydroxide (Magnesium Hydroxide (Mom) Oral Liqd Udc) 30 ml PO Q4H PRN PRN Reason: Constipation Ondansetron HCl (Ondansetron 4 Mg/2 Ml Inj) 4 mg IV Q8H PRN PRN Reason: Nausea And Vomiting Oxycodone/Acetaminophen (Oxycodone /Acetaminophen 5-325mg Tab) 1 tab PO Q6H PRN PRN Reason: Pain, Moderate (4-6) Sodium Chloride (Sodium Chloride 0.9% 10 Ml Flush Syringe) 10 ml IV BID [facility] Last Admin: 02/26/21 09:30 Dose: 10 ml Documented by: Sodium Chloride (Sodium Chloride 0.9% 10 Ml Flush Syringe) 10 ml IV PRN PRN PRN Reason: LINE FLUSH Mental Status Exam - Vital signs Last Vital Signs Temp 98.0 F 02/26/21 06:40 Pulse 103 H 02/26/21 06:40 Resp 20 02/26/21 06:40 BP 125/78 02/26/21 06:40 Pulse Ox 98 02/26/21 06:40 Results Result Diagrams: 02/25/21 07:55 02/26/21 04:00 Abnormal lab results 02/25/21 02/25/21 02/25/21 Range/Units 10:28 13:05 13:05 Cholesterol 207 H (50-199) mg/dL HDL Cholesterol 111 H (40-59) mg/dL Salicylates < 0.3 L (2.8-20.0) mg/dL Acetaminophen 5.0 L (10.0-30.0) ug/mL All other labs normal.
[2021-02-26] MEDS: SERTRALINE 25 MG TAB PO SCH (12:00)
--- NOTE | 2021-02-26 12:33 | Progress Note ---
Assessment and Plan - Medical Decision Making #Patient is 50 years old female, wheelchair-bound for few years due to arachnoiditis as per pt. -according to her she is unable to walk and is with significant back pain -had spinal stimulator -CT brain is unremarkable -On neurontine and muscles relaxant -muscles strength fluctuate , she is with suppressed reflexes -Recommend MRI neck and [place] ,brain with gd -according to pt. spinal stimulator can be turned off # history of hypertension, diabetes, asthma and degenerative disc disease with a stimulator. # Patient also reported that she had a CVA back in June of this year. # difficulty speaking. Patient stated that she mastered 4 languages however she is unable to speak none of them now. Patient stated that she know the word but she is unable to speak. She denied any headache, neck pain, chest pain, shortness of breath, focal weakness, bowel or bladder incontinence. Patient stated that the difficulty speaking started 1 week ago. Exam showed no sign of aphasia but fluctuating hesitant speech # pt. voiced being depressed and wants to ,today she denied depression !!! # Complaint of headache and requested pain medication # pt. is with spinal stimulator # Morbid obesity PLAN 1- suggest celexa 20 mg daily 2- maintain her home medications 3- No sign to suggest aphasia or acute CVA on exam today 4- Pt therapy evaluation 5- she can have MRI ,suggest brain ,cervical and lumber with gd 6- spinal stimulator 7- Send for CPK,ESR,ELISE ,B12,A1C noted wnl 8- SQ heparine 9- ASA 81 mg and Lipitor 40 mg daily and send for lipid profil 10- better control of BP.<150/80 11- Consider PT/Rehabilitation ? will follow as needed Subjective Date of service: 02/26/21 Principal diagnosis: speech improved , still with weakness diffuse none specific Interval history: she is with improved speech denied depression today ! BP is better controlled According to her she can have MRI despite the spinal stimulator she requested pain medications according to her she last walked over 2 months ago with assistance she is with difficulty ambulation for over 5 years labs noted Objective - Vital Sign Vital Signs - 12hr 02/26/21 02/26/21 02/26/21 01:01 06:40 10:00 Temperature 98.0 F Pulse Rate 103 H Respiratory 20 20 Rate Blood Pressure 125/78 O2 Sat by Pulse 97 98 99 Oximetry - General Apperance Constitutional: comfortable - EENT EENT: PERRL, mucous membranes moist - Respiratory Respiratory: chest non-tender, lungs clear, rhonchi - Cardiovascular Cardiovascular: regular rate, normal S1, normal S2 Extremities: no peripheral edema bilat, no clubbing, cyanosis - Gastrointestinal Gastrointestinal: normoactive bowel sounds - Integumentary Integumentary: normal - Neurologic Cranial nerve examination: PERRL, EOMI, intact Speech examination: intact Detailed motor examination: other (upper 4/5 today lower she claimed cant move but is able to pend knees up and hold with no assistance , reflexes are suppressed bilteral,gait unable to do.) - Laboratory Findings CBC and BMP: 02/25/21 07:55 02/26/21 04:00 Abnormal Lab Findings: Abnormal Labs 02/25/21 02/25/21 02/25/21 07:55 07:55 07:55 RDW 18.3 H Glucose 114 H POC Glucose AST 83 H Alkaline Phosphatase 302 H Cholesterol HDL Cholesterol Salicylates Acetaminophen 02/25/21 02/25/21 02/25/21 08:14 10:28 13:05 RDW Glucose POC Glucose 117 H AST Alkaline Phosphatase Cholesterol 207 H HDL Cholesterol 111 H Salicylates < 0.3 L Acetaminophen 02/25/21 13:05 RDW Glucose POC Glucose AST Alkaline Phosphatase Cholesterol HDL Cholesterol Salicylates Acetaminophen 5.0 L
--- NOTE | 2021-02-26 20:26 | Progress Note ---
Assessment and Plan Assessment and plan: Patient is 50 years old female, wheelchair-bound with history of hypertension, diabetes, asthma, and CVA (06/2020) and degenerative disc disease with a stimulator who presented for generalized weakness. The patient is wheelchair- bound at baseline. #Generalized weakness - Neurology on board; appreciate recommendations - Low clinical suspicion for CVA given presensation. - Unable to perform MRI due to spinal stimulator in place. Can consider outpatient imaging. - Pending PT/OT/ST evaluation #Suicidal ideation - patient had outburst upon admission - Mental Tashi consulted; appreciate recommendations - starting zoloft 25mg daily and trazadone 50mg daily (per Psychiatry) - no need for inpatient evaluation/management #History of CVA - continue ASA 81mg daily and atorvastatin 40mg daily #Hypertension - currently normotensive. Will start home antihypertensives as needed #Diabetes mellitus (type II) - continue SSI with accuchecks #Asthma - currently controlled - will continue to monitor #DVT prophylaxis - continue subcutaneous heparin 5000U q8hrs Disposition Plan: Pending possible discharge tomorrow. Total Time Spent with Patient (Minutes): 45 History Interval history: No acute events over night. Hospitalist Physical - Constitutional Vitals: Temp Pulse Resp BP Pulse Ox 99.0 F 107 H 18 138/95 97 02/26/21 11:36 02/26/21 11:36 02/26/21 11:36 02/26/21 11:36 02/26/21 11:36 General appearance: Present: no acute distress, well-nourished, obese - EENT Eyes: Present: PERRL, EOM intact ENT: hearing intact, clear oral mucosa, dentition normal - Neck Neck: Present: supple, normal ROM - Respiratory Respiratory effort: normal - Cardiovascular Rhythm: regular Heart Sounds: Present: S1 & S2 - Extremities Extremities: no ischemia, pulses intact, pulses symmetrical, No edema, normal temperature, normal color Peripheral Pulses: within normal limits - Abdominal General gastrointestinal: soft, non-tender, non-distended, normal bowel sounds - Integumentary Integumentary: Present: clear, warm, dry - Psychiatric Psychiatric: appropriate mood/affect, intact judgment & insight, memory intact, cooperative - Neurologic Neurologic: CNII-XII intact - Allied Health Allied health notes reviewed: nursing HEART Score - HEART Score Troponin: Troponin T < 0.010 ng/mL (0.00-0.029) 02/25/21 07:55 Results - Labs CBC & Chem 7: 02/25/21 07:55 02/26/21 04:00 Labs: Laboratory Last Values WBC 5.8 K/mm3 (4.5-11.0) 02/25/21 07:55 RBC 4.18 M/mm3 (3.65-5.03) 02/25/21 07:55 Hgb 11.8 gm/dl (10.1-14.3) 02/25/21 07:55 Hct 35.1 % (30.3-42.9) 02/25/21 07:55 MCV 84 fl (79-97) 02/25/21 07:55 MCH 28 pg (28-32) 02/25/21 07:55 MCHC 34 % (30-34) 02/25/21 07:55 RDW 18.3 % (13.2-15.2) H 02/25/21 07:55 Plt Count 270 K/mm3 (140-440) 02/25/21 07:55 Lymph % (Auto) 23.9 % (13.4-35.0) 02/25/21 07:55 Sw[place] % (Auto) 6.3 % (0.0-7.3) 02/25/21 07:55 Eos % (Auto) 1.0 % (0.0-4.3) 02/25/21 07:55 Baso % (Auto) 0.8 % (0.0-1.8) 02/25/21 07:55 Lymph # (Auto) 1.4 K/mm3 (1.2-5.4) 02/25/21 07:55 Swisher # (Auto) 0.4 K/mm3 (0.0-0.8) 02/25/21 07:55 Eos # (Auto) 0.1 K/mm3 (0.0-0.4) 02/25/21 07:55 Baso # (Auto) 0.0 K/mm3 (0.0-0.1) 02/25/21 07:55 Seg Neutrophils % 68.0 % (40.0-70.0) 02/25/21 07:55 Seg Neutrophils # 4.0 K/mm3 (1.8-7.7) 02/25/21 07:55 ESR 40 mm/Hr (0-20) 02/25/21 15:27 PT 13.4 Sec. (12.2-14.9) 02/25/21 07:55 INR 0.92 (0.87-1.13) 02/25/21 07:55 APTT 29.3 Sec. (24.2-36.6) 02/25/21 07:55 Thrombin Time 17.5 Sec. (15.1-19.6) 02/25/21 07:55 Sodium 139 mmol/L (137-145) 02/26/21 04:00 Potassium 3.9 mmol/L (3.6-5.0) 02/26/21 04:00 Chloride 103.3 mmol/L (98-107) 02/26/21 04:00 Carbon Dioxide 24 mmol/L (22-30) 02/26/21 04:00 Anion Gap 16 mmol/L 02/26/21 04:00 BUN 8 mg/dL (7-17) 02/26/21 04:00 Creatinine 0.7 mg/dL (0.6-1.2) 02/26/21 04:00 Estimated GFR > 60 ml/min 02/26/21 04:00 BUN/Creatinine Ratio 11 % 02/26/21 04:00 Glucose 94 mg/dL (65-100) 02/26/21 04:00 POC Glucose 100 mg/dL (70-105) 02/26/21 16:16 Hemoglobin A1c 5.7 % (4-6) 02/25/21 10:28 Calcium 8.8 mg/dL (8.4-10.2) 02/26/21 04:00 Total Bilirubin 0.30 mg/dL (0.1-1.2) 02/25/21 07:55 Direct Bilirubin < 0.2 mg/dL (0-0.2) 02/25/21 07:55 Indirect Bilirubin 0.1 mg/dL 02/25/21 07:55 AST 83 units/L (5-40) H 02/25/21 07:55 ALT 48 units/L (7-56) 02/25/21 07:55 Alkaline Phosphatase 302 units/L (35-129) H 02/25/21 07:55 Total Creatine Kinase 68 units/L (30-135) 02/25/21 15:27 Troponin T < 0.010 ng/mL (0.00-0.029) 02/25/21 07:55 NT-Pro-B Natriuret Pep 67.98 pg/mL (0-450) 02/25/21 07:55 Total Protein 8.1 g/dL (6.3-8.2) 02/25/21 07:55 Albumin 4.3 g/dL (3.9-5) 02/25/21 07:55 Albumin/Globulin Ratio 1.1 % 02/25/21 07:55 Triglycerides 76 mg/dL (2-149) 02/25/21 10:28 Cholesterol 207 mg/dL (50-199) H 02/25/21 10:28 LDL Cholesterol Direct 87 mg/dL (50-130) 02/25/21 10:28 HDL Cholesterol 111 mg/dL (40-59) H 02/25/21 10:28 Cholesterol/HDL Ratio 1.86 % 02/25/21 10:28 Vitamin B12 905.3 pg/mL (211-911) 02/25/21 15:27 TSH 2.870 mlU/mL (0.270-4.200) 02/25/21 15:27 Urine Color Straw (Yellow) 02/25/21 Unknown Urine Turbidity Clear (Clear) 02/25/21 Unknown Urine pH 6.0 (5.0-7.0) 02/25/21 Unknown Ur Specific Advance 1.005 (1.003-1.030) 02/25/21 Unknown Urine Protein <15 mg/dl mg/dL (Negative) 02/25/21 Unknown Urine Glucose (UA) Neg mg/dL (Negative) 02/25/21 Unknown Urine Ketones Neg mg/dL (Negative) 02/25/21 Unknown Urine Blood Neg (Negative) 02/25/21 Unknown Urine Nitrite Neg (Negative) 02/25/21 Unknown Urine Bilirubin Neg (Negative) 02/25/21 Unknown Urine Urobilinogen < 2.0 mg/dL (<2.0) 02/25/21 Unknown Ur Leukocyte Esterase Neg (Negative) 02/25/21 Unknown Urine WBC (Auto) 1.0 /HPF (0.0-6.0) 02/25/21 Unknown Urine RBC (Auto) 1.0 /HPF (0.0-6.0) 02/25/21 Unknown U Epithel Cells (Auto) 2.0 /HPF (0-13.0) 02/25/21 Unknown Urine Bacteria (Auto) 1+ /HPF (Negative) 02/25/21 Unknown Nasal Screen MRSA (PCR) Negative (Negative) 02/25/21 23:55 Salicylates < 0.3 mg/dL (2.8-20.0) L 02/25/21 13:05 Urine Opiates Screen Negative 02/25/21 Unknown Urine Methadone Screen Negative 02/25/21 Unknown Acetaminophen 5.0 ug/mL (10.0-30.0) L 02/25/21 13:05 Ur Barbiturates Screen Negative 02/25/21 Unknown Ur Phencyclidine Scrn Negative 02/25/21 Unknown Ur Amphetamines Screen Negative 02/25/21 Unknown U Benzodiazepines Scrn Negative 02/25/21 Unknown Urine Cocaine Screen Negative 02/25/21 Unknown U Marijuana (THC) Screen Negative 02/25/21 Unknown Drugs of Abuse Note Disclamer 02/25/21 Unknown Plasma/Serum Alcohol < 0.01 % (0-0.07) 02/25/21 13:05 [place]/IV: Voiding Method External Female Catheter Active Medications - Current Medications Current Medications: Generic Name Dose Route Start Last Admin Trade Name Freq PRN Reason Stop Dose Admin Acetaminophen 650 mg 02/25/21 10:08 Acetaminophen 325 Mg Tab PO Q4H PRN Pain MILD(1-3)/Fever >100.5/LONG Aspirin 81 mg 02/25/21 12:00 02/26/21 09:30 Aspirin Ec 81 Mg Tab PO 81 mg DAILY JAZMIN Administration Atorvastatin Calcium 40 mg 02/25/21 22:00 02/25/21 21:42 Atorvastatin 40 Mg Tab PO 40 mg QHS JAZMIN Administration Heparin Sodium (Porcine) 5,000 unit 02/25/21 11:15 02/26/21 09:31 Heparin 5,000 Unit/1 Ml Vial SUB-Q 5,000 unit BID JAZMIN Administration Magnesium Hydroxide 30 ml 02/25/21 10:08 Magnesium Hydroxide (Mom) Oral Liqd Udc PO Q4H PRN Constipation Ondansetron HCl 4 mg 02/25/21 10:08 Ondansetron 4 Mg/2 Ml Inj IV Q8H PRN Nausea And Vomiting Oxycodone/Acetaminophen 1 tab 02/25/21 10:08 Oxycodone /Acetaminophen 5-325mg Tab PO Q6H PRN Pain, Moderate (4-6) Sertraline HCl 25 mg 02/26/21 12:00 02/26/21 12:00 Sertraline 25 Mg Tab PO 25 mg QDAY JAZMIN Administration Sodium Chloride 10 ml 02/25/21 22:00 02/26/21 09:30 Sodium Chloride 0.9% 10 Ml Flush Syringe IV 10 ml BID JAZMIN Administration Sodium Chloride 10 ml 02/25/21 10:08 Sodium Chloride 0.9% 10 Ml Flush Syringe IV PRN PRN LINE FLUSH Trazodone HCl 50 mg 02/26/21 22:00 Trazodone 50 Mg Tab PO QHS JAZMIN Nutrition/Malnutrition Assess - Dietary Evaluation Nutrition/Malnutrition Findings: Nutrition Notes Start: 02/26/21 14:20 Freq: Status: Active Protocol: Document 02/26/21 14:20 GB (Rec: 02/26/21 14:39 GB [email or web address]) Nutrition Notes Need for Assessment generated from: MD Order Initial or Follow up Assessment Current Diagnosis Diabetes,Hypertension,Stroke Other Pertinent Diagnosis arachnoiditis Current Diet Low Na Labs/Tests 02/26: unremarkable Pertinent Medications reviewed Height 5 ft 1 in Weight 91 kg [place] Body Weight (kg) 47.72 BMI 37.9 Weight change and time frame No change. stable Weight Status Obese Subjective/Other Information Wheel chair bound for a few years r/t arachnoiditis. Per PT review severe weakness Last BM: 02/26 Percent of energy/protein needs met: PO intake of meals at 50% or greater will meet 75% or greater of EEN Burn Absent Trauma Absent GI Symptoms None Food Allergy Yes Skin Integrity/Comment no complications reported Current % PO Fair (50-74%) Minimum of two criteria No #1 Nutrition Diagnosis Overweight/obesity Etiology arachnoiditis per pt As Evidenced by Signs and Symptoms wheel chair bound for a few years per pt, PT eval of severe weakness Is patient on ventilator? No Is Patient Ambulatory and/or Out of Bed Yes REE-([place]-St. Jeor-ambulatory/OOB) [ 1914.094 [id number]] Kcal/Kg value to use for calculation 17 Approximate Energy Requirements Using 1547 kcal/Kg Calculation Used for Recommendations Kcal/kg Additional Notes Protein 0.8-1g/kg @ 91k- 91g Fluids: 1 ml/kcal or per MD Nutrition Intervention Change Diet Order: continue Nutrition Support: n/a Add Supplement/Snack (indicate name/kcal ensure enlive BID /protein ) Provides kCal: 700 Provides Protein (gm) 40 Goal #1 PO intake of meals to be 50% or greater daily for LOS Goal #2 PO intake of supplement beverage to be 50% or greater daily for LOS Follow-Up By: 03/06/21 Additional Comments f/u: PO intake meals/ supplement - Attestation Statement I have reviewed and agreed w/ Malnutrition eval & tx plan: Yes
[2021-02-26] MEDS: oxyCODONE /ACETAMINOPHEN 5-325MG TAB PO PRN (20:59)
[2021-02-26] MEDS ORDERED: traZODone 50 MG TAB PO SCH (22:00)
[2021-02-27] MEDS: oxyCODONE /ACETAMINOPHEN 5-325MG TAB PO PRN (05:07)
[2021-02-27] MEDS: HEPARIN 5,000 UNIT/1 ML VIAL SUB-Q SCH (08:59)
[2021-02-27] MEDS: SERTRALINE 25 MG TAB PO SCH (08:59)
[2021-02-27] MEDS: ASPIRIN EC 81 MG TAB PO SCH (08:59)
[2021-02-27 09:16] VITALS: BP 172/116
[2021-02-27] MEDS ORDERED: NIFEdipine XL 30 MG TAB PO SCH (10:00)
[2021-02-27 10:13] LABS: Basophils % (Auto) 0.8 % (0.0-1.8); Eosinophils # (Auto) 0.1 K/mm3 (0.0-0.4); Eosinophils % (Auto) 2.4 % (0.0-4.3); Hemoglobin 11.8 gm/dl (10.1-14.3); Lymphocytes # (Auto) 1.4 K/mm3 (1.2-5.4); Lymphocytes % (Auto) 28.5 % (13.4-35.0); Mean Corpuscular HGB Conc 31 % (30-34); Mean Corpuscular Volume 85 fl (79-97); Monocytes # (Auto) 0.2 K/mm3 (0.0-0.8); Monocytes % (Auto) 4.7 % (0.0-7.3); Platelet Count 272 K/mm3 (140-440); Red Blood Count 4.47 M/mm3 (3.65-5.03); Red Cell Distribution Width 18.2 % (13.2-15.2)
[2021-02-27 10:33] LABS: Blood Urea Nitrogen 6 mg/dL (7-17); Calcium 9.1 mg/dL (8.4-10.2); Hemolysis Index 0
[2021-02-27 10:39] LABS: BUN/Creatinine Ratio 9
--- NOTE | 2021-02-27 13:39 | Discharge Summary ---
Providers - Providers Date of Admission: 02/25/21 10:08 Date of discharge: 02/27/21 Attending physician: ARTURO GRANADOS MD 02/25/21 10:08 Consult to Physician [CONS] Routine Comment: Consulting Provider: NAIMA GALAN Physician Instructions: Reason For Exam: CVA/TIA r/o 02/25/21 10:15 Physical Therapy Evaluation and Treat [CONS] Routine Comment: Reason For Exam: weakness 02/25/21 11:21 Occupational Therapy Evaluate and Treat [CONS] Routine Comment: Reason For Exam: ADL evaluation 02/25/21 11:22 Speech Therapy Evaluation and Treat [CONS] Routine Reason For Exam: post stroke deficits 02/25/21 11:25 Consult to Mental Health [CONS] Urgent Reason For Exam: Patient expressing suicidal ideations 02/25/21 17:34 Consult to Dietitian/Nutrition [CONS] Routine Physician Instructions: Reason For Exam: Reason for Consult: Poor oral intake Primary care physician: [facility] Hospitalization Reason for admission: Generalized weakness Condition: Stable Pertinent studies: Reviewed. Procedures: None. Hospital course: Patient is 50 years old female, wheelchair-bound with history of hypertension, diabetes, asthma, and CVA (06/2020) and degenerative disc disease with a stimulator who presented for generalized weakness. The patient is wheelchair- bound at baseline. The patient was evaluated by neurology but unable to have MRI due to spinal stimulator being in place. Low likelihood for CVA given physical exam and patient's presentation. Consults were placed for physical therapy, Occupational Therapy, and speech therapy; however, the patient refused evaluation on multiple attempts. The patient alluded to suicidal ideation, and she was evaluated by mental health. There was no need for inpatient management per psychiatry. The patient was discharged home with Zoloft 25 mg daily and trazodone 50 mg daily per psychiatry. The patient was safely discharged home. Disposition: 30 STILL A PATIENT Final Discharge Diagnosis (Prints w/discharge instructions): Generalized weakness; suicidal ideation Time spent for discharge: 35 minute Core Measure Documentation - Palliative Care Palliative Care/ Comfort Measures: Not Applicable - Core Measures Any of the following diagnoses?: history only (Stroke) - VTE Discharge Requirements Deep Vein Thrombosis/Pulmonary Embolism Present on Admission: No Has pt received <5 days of overlap therapy or INR<2.0: No (Not indicated) Anticoagulant overlap therapy prescribed at discharge: No (Not indicated) Contraindication No Overlap Therapy order at DC: Not Indicated - Acute IN Discharge Requirements Aspirin at discharge: No Reason for no aspirin on DC: Medical contraindication (Not indicated) ARVIND/ARB for LVSD if EF <40%: Not Applicable Reason for no ARVIND/ARB: Medical contraindication (Not indicated) Beta carissa at discharge: Yes Statin for LDL = or >100 mg/dl on DC: Yes - Heart Failure Discharge Requirements ARVIND/ARB for LVSD if EF <40%: Not Applicable Reason for no ARVIND/ARB: Medical contraindication (Not indicated) Beta carissa at discharge: No Reason for no beta carissa on DC: Medical contraindication (Not indicated) - Stroke Discharge Requirements Statin for LDL = or >70 mg/dl on DC: Yes Anticoag for atrial fib/atrial flutter: Not Applicable Reason for no anticoag for AF/F on DC: Not Indicated Antithrombotic for ischemic stroke: No Reason for no antithrombotic on DC: Not Indicated Exam - Constitutional Vitals: Temp Pulse Resp BP Pulse Ox 97.9 F 93 H 16 172/116 99 02/27/21 09:13 02/27/21 09:13 02/27/21 09:13 02/27/21 09:13 02/27/21 09:13 General appearance: Present: no acute distress, well-nourished, obese - EENT Eyes: Present: PERRL, EOM intact ENT: hearing intact, clear oral mucosa, dentition normal - Neck Neck: Present: supple, normal ROM - Respiratory Respiratory effort: normal - Cardiovascular Rhythm: regular Heart Sounds: Present: S1 & S2 - Extremities Extremities: no ischemia, pulses intact, pulses symmetrical, No edema, normal temperature, normal color Peripheral Pulses: within normal limits - Abdominal General gastrointestinal: Present: soft, non-tender, non-distended, normal bowel sounds Female genitourinary: Present: deferred - Rectal Rectal Exam: deferred - Integumentary Integumentary: Present: clear, warm, dry - Musculoskeletal Musculoskeletal: strength equal bilaterally - Psychiatric Psychiatric: appropriate mood/affect, intact judgment & insight, memory intact, other (Uncooperative) - Neurologic Neurologic: CNII-XII intact, moves all extremities - Allied Health Allied health notes reviewed: nursing Plan Care Plan Goals: Patient discharging home safely Assessment: Patient evaluated for possible stroke. Based off of physical exam, there is low likelihood of stroke (per neurology). Patient refused physical therapy assessment multiple times. Patient being discharged home safely. Follow up with: PRIMARY CARE, [Primary Care Provider] - 7 Days Prescriptions: traZODone [Desyrel] 50 mg PO QHS #30 tablet Aspirin EC [Halfprin EC] 81 mg PO DAILY 11 Days #30 tablet Sertraline [Zoloft] 25 mg PO QDAY #30 tablet
[2021-02-28 21:21] LABS: ANA Screen, IFA Negative (Negative)
== END 2021-02-27 12:09 | disposition still patient (30) ==
LOC: ED 06:32 → 3A 10:08
PROVIDERS: ADMIT Student in an Organized Health Care Education/Training Program; ATTEND Student in an Organized Health Care Education/Training Program
DX: I63.9 Cerebral infarction, unspecified (principal); I10 Essential (primary) hypertension; E11.9 Type 2 diabetes mellitus without complications; E66.01 Morbid (severe) obesity due to excess calories; K21.9 Gastro-esophageal reflux disease without esophagitis; M19.90 Unspecified osteoarthritis, unspecified site; J45.909 Unspecified asthma, uncomplicated; K76.9 Liver disease, unspecified; N28.9 Disorder of kidney and ureter, unspecified; R53.81 Other malaise; R53.1 Weakness; R45.851 Suicidal ideations; R29.704 NIHSS score 4; R77.8 Other specified abnormalities of plasma proteins; Z86.73 Personal history of transient ischemic attack (TIA), and cerebral infarction without residual deficits; Z79.899 Other long term (current) drug therapy; Z98.890 Other specified postprocedural states; Z79.82 Long term (current) use of aspirin; Z90.49 Acquired absence of other specified parts of digestive tract; Z90.710 Acquired absence of both cervix and uterus; Z98.84 Bariatric surgery status; Z98.891 History of uterine scar from previous surgery; Z68.37 Body mass index [BMI] 37.0-37.9, adult
CPT/HCPCS: 36415; 70450; 71045; 80048; 80061; 80076; 80307; 81001; 82550; 82607; 82962; 83036; 83735; 83880; 84100; 84443; 84484; 85025; 85610; 85652; 85670; 85730; 86038; 87641; 92610; 93005; 96372; 96374; 96376; 99285; A9270; G0378; J1644; J2270; 80320; G0480